=== PATIENT | male | born 1965 | race Two or more races ===

== ENCOUNTER 2021-11-26 08:33 | Emergency (ER) | payer MEDICAID ==
[~2021-11-26] VITALS: Ht 157.5 cm; Wt 106.6 kg
[2021-11-26] MEDS ORDERED: SODIUM CHLORIDE 0.9% 500 ML IVB ONE (09:00)
[2021-11-26] MEDS ORDERED: SODIUM CHLORIDE 0.9% 1,000 ML IV ONE (09:00)
[2021-11-26 09:17] LABS: Urine Bacteria NONE SEEN /hpf (None Seen); Urine Blood Negative /uL (Negative); Urine Specific Gravity 1.018 (1.001-1.035); Urine WBC 22 /hpf (0 - 3)
[2021-11-26 09:35] LABS: Basophils # (auto) 0.1 10 ^3/uL (0-0.2); Basophils % (auto) 0.8 % (0.0-2.0); Eosinophils # (auto) 0.2 10 ^3/uL (0-0.8); Eosinophils % (auto) 3.3 % (0.0-7.0); Hematocrit 42.6 % (41.0-53.0); Lymphocytes % (auto) 32.6 % (10.0-50.0); Mean Corpuscular Hemoglobin 29.3 pg (28.0-32.0); Mean Corpuscular Hgb Conc. 32.9 g/dL (32.0-36.0); Monocytes # (auto) 0.6 10 ^3/uL (0-1.3); Monocytes % (auto) 9.3 % (0.0-12.0); Neutrophils # (auto) 3.3 10 ^3/uL (1.6-8.6); Nucleated Red Blood Cells % 0.1 %; Red Blood Cells 4.79 10^6/uL (4.5-5.90); Red Cell Distribution Width 16.1 % (11.8-14.3); White Blood Cell 6.1 10^3/uL (4.4-10.8)
[2021-11-26 09:56] LABS: Albumin 3.7 g/dL (3.4-5.0); BUN/Creatinine Ratio 25.9; Bilirubin, Total 0.4 mg/dL (0.2-1.0); Calcium 9.2 mg/dL (8.5-10.1); Magnesium 2.5 mg/dL (1.6-2.6); Total Protein 7.5 g/dL (6.4-8.2)
[2021-11-26] MEDS ORDERED: levoFLOXacin 750MG 150 ML IV ONE (13:15)
[2021-11-26] MEDS ORDERED: NITROFURANTOIN 100 mg CAP PO ONE (13:15)
[2021-11-26 14:05] VITALS: BP 108/52
== END 2021-11-26 16:05 | disposition home or self-care (01) ==
LOC: ER 08:33
DX: N39.0 Urinary tract infection, site not specified (principal); E11.65 Type 2 diabetes mellitus with hyperglycemia; I10 Essential (primary) hypertension; E78.5 Hyperlipidemia, unspecified; Z95.1 Presence of aortocoronary bypass graft; Z88.0 Allergy status to penicillin; Z88.1 Allergy status to other antibiotic agents; Z88.2 Allergy status to sulfonamides
CPT/HCPCS: 36415; 80053; 81001; 83690; 83735; 85025; 96361; 96365; 99284; J1956; J7030; J7040

== ENCOUNTER 2023-02-03 08:59 | Emergency (ER) | payer MEDICAID ==
[~2023-02-03] VITALS: Ht 157.5 cm; Wt 105.0 kg
[2023-02-03 09:58] VITALS: BP 174/94
[2023-02-03] MEDS ORDERED: KETO2CRE4 TOP (10:29)
[2023-02-03] MEDS ORDERED: VIBE75TA PO (10:29)
[2023-02-03] MEDS ORDERED: CLIN300C8 PO (10:29)
== END 2023-02-03 10:42 | disposition home or self-care (01) ==
LOC: ER 08:59
DX: N48.1 Balanitis (principal); E11.9 Type 2 diabetes mellitus without complications; E78.5 Hyperlipidemia, unspecified; I10 Essential (primary) hypertension; Z87.440 Personal history of urinary (tract) infections; Z95.1 Presence of aortocoronary bypass graft; Z88.1 Allergy status to other antibiotic agents; Z88.2 Allergy status to sulfonamides; Z88.0 Allergy status to penicillin

== ENCOUNTER 2023-03-01 09:12 | Emergency (ER) | payer MEDICAID ==
[~2023-03-01] VITALS: Ht 160 cm; Wt 112.5 kg
[~2023-03-01 09:12] MED LIST: CLIN300C8 PO; KETO2CRE4 TOP; VIBE75TA PO
[2023-03-01 09:47] VITALS: BP 122/52
[2023-03-01 10:46] LABS: Urine Bacteria NONE SEEN /hpf (None Seen); Urine Blood Negative /uL (Negative); Urine Specific Gravity 1.014 (1.001-1.035); Urine WBC 4 /hpf (0 - 3)
[2023-03-01] MEDS ORDERED: CEPH-510 PO (10:58)
== END 2023-03-01 11:07 | disposition home or self-care (01) ==
LOC: ER 09:12
DX: N39.0 Urinary tract infection, site not specified (principal); E11.9 Type 2 diabetes mellitus without complications; E78.5 Hyperlipidemia, unspecified; I10 Essential (primary) hypertension; Z88.0 Allergy status to penicillin; Z88.1 Allergy status to other antibiotic agents; Z88.2 Allergy status to sulfonamides
CPT/HCPCS: 81001

== ENCOUNTER 2023-03-06 08:42 | Emergency (ER) | payer MEDICAID ==
[~2023-03-06] VITALS: Ht 157.5 cm; Wt 110.0 kg
[~2023-03-06 08:42] MED LIST changes: +CEPH-510 PO
[2023-03-06 09:42] LABS: Urine Bacteria NONE SEEN /hpf (None Seen); Urine Blood Negative /uL (Negative); Urine Specific Gravity 1.017 (1.001-1.035); Urine WBC 14 /hpf (0 - 3)
[2023-03-06] MEDS ORDERED: PHEN-1045 PO (11:24)
[2023-03-06] MEDS ORDERED: ACET1CAP14 PO (11:24)
[2023-03-06] MEDS ORDERED: BACDST PO (11:24)
[2023-03-06] MEDS ORDERED: ACETAMINOPHEN 500 MG TAB PO ONE (11:30)
[2023-03-06] MEDS ORDERED: cefTRIAXone SOD 1,000 MG VL IM ONE (11:30)
[2023-03-06 12:27] VITALS: BP 116/57
== END 2023-03-06 11:50 | disposition home or self-care (01) ==
LOC: ER 08:42
DX: N39.0 Urinary tract infection, site not specified (principal); E78.5 Hyperlipidemia, unspecified; I10 Essential (primary) hypertension; E11.9 Type 2 diabetes mellitus without complications; Z95.1 Presence of aortocoronary bypass graft; Z87.440 Personal history of urinary (tract) infections; Z88.1 Allergy status to other antibiotic agents; Z88.0 Allergy status to penicillin; Z88.2 Allergy status to sulfonamides
CPT/HCPCS: 81001; 96372; 99283; J0696

== ENCOUNTER 2023-03-10 08:20 | Emergency (ER) | payer MEDICAID ==
[~2023-03-10] VITALS: Ht 157.5 cm; Wt 104.5 kg
[~2023-03-10 08:20] MED LIST changes: +ACET1CAP14 PO; +BACDST PO; +PHEN-1045 PO
[2023-03-10 09:02] VITALS: BP 121/70
[2023-03-10 09:11] LABS: Urine Bacteria NONE SEEN /hpf (None Seen); Urine Blood Negative /uL (Negative); Urine Mucus FEW (None Seen); Urine Specific Gravity 1.016 (1.001-1.035); Urine WBC 51 /hpf (0 - 3); Urine WBC Clumps PRESENT /hpf (None Seen)
[2023-03-10] MEDS ORDERED: LIDOCAINE 1% HCL (LOCAL ANESTH.) INJ 20ML MDV ONE (09:26)
[2023-03-10] MEDS ORDERED: LIDOCAINE 1% HCL (LOCAL ANESTH.) INJ 20ML MDV IJ ONE (09:30)
[2023-03-10] MEDS ORDERED: cefTRIAXone SOD 1,000 MG VL IM ONE (09:30)
[2023-03-10] MEDS ORDERED: CEPH-510 PO (09:39)
[2023-03-10] MEDS ORDERED: PHEN200T16 PO (09:39)
== END 2023-03-10 10:00 | disposition home or self-care (01) ==
LOC: ER 08:20
DX: N39.0 Urinary tract infection, site not specified (principal); E11.9 Type 2 diabetes mellitus without complications; E78.5 Hyperlipidemia, unspecified; I10 Essential (primary) hypertension; Z87.442 Personal history of urinary calculi; Z95.1 Presence of aortocoronary bypass graft; Z88.1 Allergy status to other antibiotic agents; Z88.2 Allergy status to sulfonamides; Z88.0 Allergy status to penicillin
CPT/HCPCS: 81001; 96372; 99283; J0696; J2001

== ENCOUNTER 2023-05-04 09:16 | Emergency (ER) | payer MEDICAID ==
[~2023-05-04] VITALS: Ht 157.5 cm; Wt 104.5 kg
[~2023-05-04 09:16] MED LIST changes: +CLIN300C70 PO; -CLIN300C8 PO; +PHEN-922 PO
[2023-05-04 09:22] VITALS: BP 122/59; PULSE 80; RESP 18; O2SAT 94
[2023-05-04 10:10] LABS: Basophils # (auto) 0.1 10 ^3/uL (0-0.2); Basophils % (auto) 1.3 % (0.0-2.0); Eosinophils # (auto) 0.3 10 ^3/uL (0-0.8); Eosinophils % (auto) 4.7 % (0.0-7.0); Hematocrit 41.8 % (41.0-53.0); Hemoglobin 13.5 g/dL (13.5-17.5); Lymphocytes # (auto) 2.6 10 ^3/uL (0.4-5.4); Lymphocytes % (auto) 35.5 % (10.0-50.0); Mean Corpuscular Hemoglobin 30.1 pg (28.0-32.0); Mean Corpuscular Hgb Conc. 32.3 g/dL (32.0-36.0); Monocytes # (auto) 0.6 10 ^3/uL (0-1.3); Monocytes % (auto) 7.9 % (0.0-12.0); Neutrophils # (auto) 3.7 10 ^3/uL (1.6-8.6); Neutrophils % (auto) 50.6 % (37.0-80.0); Nucleated Red Blood Cells % 0.2 %; Red Cell Distribution Width 15.6 % (11.8-14.3); White Blood Cell 7.3 10^3/uL (4.4-10.8)
[2023-05-04 10:41] LABS: Albumin 3.4 g/dL (3.4-5.0); Potassium 4.1 mmol/L (3.5-5.1)
[2023-05-04 10:50] LABS: BUN/Creatinine Ratio 19.6 (10.0-20.0); Bilirubin, Total 0.2 mg/dL (0.2-1.0); Total Protein 7.3 g/dL (6.4-8.2)
[2023-05-04 10:57] LABS: Urine Bacteria NONE SEEN /hpf (None Seen); Urine Blood Negative /uL (Negative); Urine Specific Gravity 1.013 (1.001-1.035); Urine WBC 16 /hpf (0 - 3)
[2023-05-05] MEDS ORDERED: RANO10003 PO (10:38)
[2023-05-05] MEDS ORDERED: ASPI81CH49 PO (10:38)
[2023-05-05] MEDS ORDERED: METF-370 PO (10:38)
[2023-05-05] MEDS ORDERED: ATOR40TA52 PO (10:41)
[2023-05-05] MEDS ORDERED: EZET10TA22 PO (10:41)
[2023-05-05] MEDS ORDERED: DOCU-94 PO (10:41)
[2023-05-05] MEDS ORDERED: METO-158 PO (10:41)
[2023-05-05] MEDS ORDERED: ENAL1TAB46 PO (10:41)
[2023-05-05] MEDS ORDERED: TOLT2CAP PO (10:41)
== END 2023-05-04 16:04 | disposition left against medical advice (07) ==
LOC: ER 09:16
DX: R10.9 Unspecified abdominal pain (principal); Z53.21 Procedure and treatment not carried out due to patient leaving prior to being seen by health care provider
CPT/HCPCS: 36415; 74176; 80053; 81001; 85025

== ENCOUNTER 2023-05-05 05:38 | Inpatient (IN) | payer MEDICAID ==
[~2023-05-05] VITALS: Ht 157.5 cm; Wt 75.2 kg
[2023-05-05] MEDS ORDERED: SODIUM CHLORIDE 0.9% 1,000 ML IV ONE (07:00)
[2023-05-05] MEDS ORDERED: VANCOMYCIN 1GM/250ML 250 ML IV ONE (07:00)
[2023-05-05 07:48] LABS: Basophils # (auto) 0.1 10 ^3/uL (0-0.2); Eosinophils # (auto) 0.4 10 ^3/uL (0-0.8); Eosinophils % (auto) 5.2 % (0.0-7.0); Hematocrit 41.2 % (41.0-53.0); Hemoglobin 13.5 g/dL (13.5-17.5); Lymphocytes # (auto) 2.7 10 ^3/uL (0.4-5.4); Lymphocytes % (auto) 35.7 % (10.0-50.0); Mean Corpuscular Hemoglobin 29.7 pg (28.0-32.0); Mean Corpuscular Hgb Conc. 32.7 g/dL (32.0-36.0); Mean Corpuscular Volume 90.9 fL (80.0-100.0); Monocytes # (auto) 0.6 10 ^3/uL (0-1.3); Monocytes % (auto) 8.7 % (0.0-12.0); Neutrophils # (auto) 3.7 10 ^3/uL (1.6-8.6); Neutrophils % (auto) 49.4 % (37.0-80.0); Red Blood Cells 4.53 10^6/uL (4.5-5.90); Red Cell Distribution Width 15.4 % (11.8-14.3); White Blood Cell 7.5 10^3/uL (4.4-10.8)
[2023-05-05 08:01] LABS: Albumin 3.6 g/dL (3.4-5.0); Potassium 4.5 mmol/L (3.5-5.1)
[2023-05-05 08:06] LABS: Bilirubin, Total 0.3 mg/dL (0.2-1.0); Total Protein 6.8 g/dL (6.4-8.2)
[2023-05-05 09:22] LABS: Urine Bacteria NONE SEEN /hpf (None Seen); Urine Blood Negative /uL (Negative); Urine Specific Gravity 1.009 (1.001-1.035); Urine WBC 20 /hpf (0 - 3)
[2023-05-05] MEDS ORDERED: ASPI81CH49 PO (10:38)
[2023-05-05] MEDS ORDERED: RANO10003 PO (10:38)
[2023-05-05] MEDS ORDERED: METF-370 PO (10:38)
[2023-05-05] MEDS ORDERED: DOCU-94 PO (10:41)
[2023-05-05] MEDS ORDERED: ENAL1TAB46 PO (10:41)
[2023-05-05] MEDS ORDERED: EZET10TA22 PO (10:41)
[2023-05-05] MEDS ORDERED: METO-158 PO (10:41)
[2023-05-05] MEDS ORDERED: TOLT2CAP PO (10:41)
[2023-05-05] MEDS ORDERED: ATOR40TA52 PO (10:41)
[2023-05-05] MEDS ORDERED: MORPHINE SULFATE INJ 2 MG/ml SYRG IV PRN (11:00)
[2023-05-05] MEDS ORDERED: DEXTROSE (50%) 50ML SYRG IV PRN (11:00)
[2023-05-05] MEDS ORDERED: ONDANSETRON HCL 4 MG/2 ML VIAL IV PRN (11:00)
[2023-05-05 11:40] VITALS: PULSE 68; RESP 16; O2SAT 98
[2023-05-05] MEDS: ACCU-CHEK COMFORT CURVE STRIP VI SCH ×3 (13:01→21:50)
[2023-05-05] MEDS: InsuLIN REG 1unit/0.01ml Soln (100units/ml) SC SCH ×3 (13:01→21:50)
[2023-05-05] MEDS: RANOLAZINE ER 500 MG TAB PO SCH ×3 (13:51→22:11)
[2023-05-05] MEDS: SODIUM CHLORIDE 0.9% 1,000 ML IV SCH ×2 (14:05→20:36)
[2023-05-05] MEDS: OXYBUTYNIN CHL 5 MG TAB PO SCH ×2 (14:13→22:13)
[2023-05-05] MEDS: levoFLOXacin 500MG 100 ML IV SCH (14:14)
[2023-05-05 19:35] VITALS: PULSE 77; RESP 15; O2SAT 95
[2023-05-05] MEDS: ENALAPRIL MALEATE 10 MG TAB PO SCH (22:00)
[2023-05-05] MEDS: DOCUSATE SOD 100 MG CAP PO SCH (22:11)
[2023-05-05] MEDS: ATORVASTATIN 20 MG TAB PO SCH (22:12)
[2023-05-05] MEDS: METOPROLOL TARTRATE 50 MG TAB PO SCH (22:13)
[2023-05-06 06:20] LABS: Basophils # (auto) 0.1 10 ^3/uL (0-0.2); Basophils % (auto) 0.8 % (0.0-2.0); Eosinophils # (auto) 0.4 10 ^3/uL (0-0.8); Hematocrit 40.8 % (41.0-53.0); Hemoglobin 13.5 g/dL (13.5-17.5); Lymphocytes % (auto) 31.3 % (10.0-50.0); Mean Corpuscular Volume 90.8 fL (80.0-100.0); Monocytes # (auto) 0.9 10 ^3/uL (0-1.3); Monocytes % (auto) 9.4 % (0.0-12.0); Neutrophils # (auto) 5.3 10 ^3/uL (1.6-8.6); Neutrophils % (auto) 54.5 % (37.0-80.0); Nucleated Red Blood Cells % 0.1 %; Red Cell Distribution Width 15.4 % (11.8-14.3); White Blood Cell 9.7 10^3/uL (4.4-10.8)
[2023-05-06 06:30] LABS: Albumin 3.3 g/dL (3.4-5.0); Calcium 8.6 mg/dL (8.5-10.1)
[2023-05-06 06:36] LABS: BUN/Creatinine Ratio 19.6 (10.0-20.0); Bilirubin, Total 0.2 mg/dL (0.2-1.0); Potassium 3.9 mmol/L (3.5-5.1); Total Protein 6.8 g/dL (6.4-8.2)
[2023-05-06] MEDS: SODIUM CHLORIDE 0.9% 1,000 ML IV SCH ×3 (06:41→22:16)
[2023-05-06] MEDS: ACCU-CHEK COMFORT CURVE STRIP VI SCH ×4 (06:49→21:48)
[2023-05-06] MEDS: InsuLIN REG 1unit/0.01ml Soln (100units/ml) SC SCH ×4 (06:49→22:04)
[2023-05-06] MEDS: RANOLAZINE ER 500 MG TAB PO SCH ×3 (06:50→21:45)
[2023-05-06] MEDS: OXYBUTYNIN CHL 5 MG TAB PO SCH ×4 (06:50→22:02)
[2023-05-06 08:27] VITALS: PULSE 78; RESP 16; O2SAT 95
[2023-05-06] MEDS: levoFLOXacin 500MG 100 ML IV SCH (09:58)
[2023-05-06] MEDS ORDERED: EZETIMIBE 10 MG PO SCH (10:00)
[2023-05-06] MEDS: VIBEGRON 75 MG PO SCH (10:00)
[2023-05-06 10:22] VITALS: BP 125/73; PULSE 82; RESP 18; TEMP 97.7; O2SAT 95
[2023-05-06] MEDS: DOCUSATE SOD 100 MG CAP PO SCH ×2 (10:45→21:45)
[2023-05-06] MEDS: ASPirin 81 mg TAB PO SCH (10:45)
[2023-05-06] MEDS: ENALAPRIL MALEATE 10 MG TAB PO SCH ×2 (10:45→21:46)
[2023-05-06] MEDS: ENOXAPARIN SOD 40 MG/0.4 ML SYRINGE SC SCH (10:46)
[2023-05-06 11:10] VITALS: PULSE 84; RESP 18
[2023-05-06 20:00] VITALS: PULSE 93; RESP 20; O2SAT 93
[2023-05-06] MEDS: ATORVASTATIN 20 MG TAB PO SCH (21:46)
[2023-05-06] MEDS: METOPROLOL TARTRATE 50 MG TAB PO SCH (21:47)
[2023-05-06 22:00] VITALS: BP 115/59; PULSE 93; RESP 20; TEMP 98.5; O2SAT 98
[2023-05-07] VITALS (7 sets, daily range): BP systolic 112–142; BP diastolic 49–77; PULSE 84–118; RESP 17–22; TEMP 97.5–98.4; O2SAT 95–98
[2023-05-07] MEDS: OXYBUTYNIN CHL 5 MG TAB PO SCH ×2 (05:43→14:00)
[2023-05-07] MEDS: RANOLAZINE ER 500 MG TAB PO SCH ×2 (05:43→16:01)
[2023-05-07] MEDS: InsuLIN REG 1unit/0.01ml Soln (100units/ml) SC SCH ×3 (06:45→17:00)
[2023-05-07] MEDS: ACCU-CHEK COMFORT CURVE STRIP VI SCH ×3 (06:46→17:48)
[2023-05-07] MEDS: SODIUM CHLORIDE 0.9% 1,000 ML IV SCH ×2 (06:48→13:00)
[2023-05-07] MEDS: levoFLOXacin 500MG 100 ML IV SCH (09:16)
[2023-05-07] MEDS: ASPirin 81 mg TAB PO SCH (09:16)
[2023-05-07] MEDS: ENOXAPARIN SOD 40 MG/0.4 ML SYRINGE SC SCH (09:17)
[2023-05-07] MEDS: DOCUSATE SOD 100 MG CAP PO SCH (09:18)
[2023-05-07] MEDS: ENALAPRIL MALEATE 10 MG TAB PO SCH (09:18)
[2023-05-07] MEDS: VIBEGRON 75 MG PO SCH (10:00)
[2023-05-07 12:39] LABS: Hepatitis C Antibody Negative (Negative)
[2023-05-07] MEDS ORDERED: LEVO500T91 PO (17:45)
== END 2023-05-07 18:30 | disposition home or self-care (01) | DRG 463 ==
LOC: ER 05:38 → OVERFLOW 11:06 → CENTRAL 05-06 10:28
PROVIDERS: ADMIT Internal Medicine; ATTEND Internal Medicine
DX: N39.0 Urinary tract infection, site not specified (principal); G82.20 Paraplegia, unspecified; B96.5 Pseudomonas (aeruginosa) (mallei) (pseudomallei) as the cause of diseases classified elsewhere; E11.9 Type 2 diabetes mellitus without complications; E66.9 Obesity, unspecified; E78.5 Hyperlipidemia, unspecified; I10 Essential (primary) hypertension; Z99.3 Dependence on wheelchair; Z82.49 Family history of ischemic heart disease and other diseases of the circulatory system; Z83.3 Family history of diabetes mellitus; Z87.440 Personal history of urinary (tract) infections; Z88.0 Allergy status to penicillin; Z88.1 Allergy status to other antibiotic agents; Z95.1 Presence of aortocoronary bypass graft; Z88.2 Allergy status to sulfonamides; Z68.30 Body mass index [BMI] 30.0-30.9, adult
CPT/HCPCS: 36415; 80053; 81001; 82962; 84484; 85025; 86803; 87086; 87088; 87186; 87340; 93005; 96365; G0378; J1815; J1956

== ENCOUNTER 2023-07-04 08:27 | Inpatient (IN) | payer MEDICAID ==
[~2023-07-04] VITALS: Ht 157.5 cm; Wt 103.9 kg
[~2023-07-04 08:27] MED LIST changes: +ASPI81CH49 PO; +ATOR40TA52 PO; -CEPH-510 PO; -CLIN300C70 PO; +DOCU-94 PO; +ENAL1TAB46 PO; +EZET10TA22 PO; +LEVO500T91 PO; +METF-370 PO; +METO-158 PO; +RANO10003 PO; +TOLT2CAP PO
[2023-07-04 09:15] LABS: Urine Bacteria FEW /hpf (None Seen); Urine Blood 3+ /uL (Negative); Urine Clarity Clear (Clear); Urine Color Yellow (Yellow); Urine Mucus FEW (None Seen); Urine Protein, UAD TRACE (Negative); Urine Urobilinogen Normal (Negative); Urine WBC 6 /hpf (0 - 3); Urine pH 6.5 (5.0-8.0)
[2023-07-04 09:57] LABS: Basophils # (auto) 0.1 10 ^3/uL (0-0.2); Eosinophils # (auto) 0.4 10 ^3/uL (0-0.8); Eosinophils % (auto) 3.7 % (0.0-7.0); Hematocrit 43.7 % (41.0-53.0); Hemoglobin 14.5 g/dL (13.5-17.5); Lymphocytes # (auto) 3.3 10 ^3/uL (0.4-5.4); Lymphocytes % (auto) 33.6 % (10.0-50.0); Mean Corpuscular Hemoglobin 29.6 pg (28.0-32.0); Mean Corpuscular Hgb Conc. 33.2 g/dL (32.0-36.0); Mean Corpuscular Volume 89.2 fL (80.0-100.0); Monocytes # (auto) 0.9 10 ^3/uL (0-1.3); Monocytes % (auto) 9.5 % (0.0-12.0); Neutrophils # (auto) 5.1 10 ^3/uL (1.6-8.6); Neutrophils % (auto) 52.2 % (37.0-80.0); Nucleated Red Blood Cells % 0.2 %; Red Cell Distribution Width 15.4 % (11.8-14.3); White Blood Cell 9.8 10^3/uL (4.4-10.8)
[2023-07-04 10:18] LABS: Alanine Aminotransferase 31 U/L (7-40); Albumin 4.6 g/dL (3.2-4.8); Alkaline Phosphatase 112 U/L (46-116); Aspartate Aminotransferase 12 U/L (13-40); BUN/Creatinine Ratio 20.4 (10.0-20.0); Bilirubin, Total 0.5 mg/dL (0.2-1.0); Blood Urea Nitrogen 11 mg/dL (9-23); Calcium 9.8 mg/dL (8.5-10.1); Carbon Dioxide 20 mmol/L (20-30); Glucose 117 mg/dL (74-106); Total Protein 7.4 g/dL (5.7-8.2)
[2023-07-04 10:57] LABS: Anion Gap 9 (5-15); Chloride 101 mmol/L (98-107); Potassium 4.4 mmol/L (3.5-5.1); Sodium 130 mmol/L (136-145)
[2023-07-04 11:03] LABS: Lipase 98 U/L (12-53)
[2023-07-04] MEDS ORDERED: NITROGLYCERIN 0.4 MG SL TAB SL PRN (12:45)
[2023-07-04] MEDS ORDERED: ENALAPRIL MALEATE 10 MG TAB PO ONE (12:45)
[2023-07-04] MEDS ORDERED: ASPirin 81 mg TAB PO ONE (12:45)
[2023-07-04] MEDS ORDERED: MORPHINE SULFATE INJ 2 MG/ml SYRG IV PRN (12:45)
[2023-07-04] MEDS ORDERED: DOCUSATE SOD 100 MG CAP PO PRN ×2 (12:45→18:45)
[2023-07-04] MEDS ORDERED: METOPROLOL SUCCINATE XL 50 MG TAB PO ONE (12:45)
[2023-07-04] MEDS ORDERED: cefTRIAXone 1GM/50ML D5W 50 ML IV ONE (12:45)
[2023-07-04 13:38] VITALS: O2SAT 98
[2023-07-04] MEDS: RANOLAZINE ER 500 MG TAB PO SCH ×2 (13:53→22:00)
[2023-07-04] MEDS: MEROPENEM 1GM IVPB 100 ML IV SCH ×2 (14:00→22:35)
[2023-07-04 22:15] VITALS: BP 129/72; PULSE 99; RESP 20; TEMP 97.7; O2SAT 98
[2023-07-04] MEDS: ATORVASTATIN 20 MG TAB PO SCH (22:36)
[2023-07-05] VITALS (7 sets, daily range): BP systolic 95–153; BP diastolic 59–75; PULSE 71–91; RESP 16–19; TEMP 97.4–98.1; O2SAT 97–99
[2023-07-05] MEDS: MEROPENEM 1GM IVPB 100 ML IV SCH ×3 (05:36→22:19)
[2023-07-05] MEDS: RANOLAZINE ER 500 MG TAB PO SCH ×3 (05:41→22:17)
[2023-07-05 06:41] LABS: Anion Gap 8 (5-15); Carbon Dioxide 22 mmol/L (20-30); Chloride 101 mmol/L (98-107); Potassium 4.1 mmol/L (3.5-5.1); Sodium 131 mmol/L (136-145)
[2023-07-05 06:42] LABS: Calcium 9.3 mg/dL (8.7-10.4)
[2023-07-05 06:44] LABS: INR 1.04 (0.9-1.15); Partial Thromboplastin Time 33.6 SEC (24.5-34.5); Prothrombin Time 10.9 sec (9.3-11.8)
[2023-07-05 06:47] LABS: BUN/Creatinine Ratio 20.4 (10.0-20.0); Blood Urea Nitrogen 10 mg/dL (9-23); Glucose 117 mg/dL (74-106)
[2023-07-05 06:59] LABS: LDL Cholesterol 46 mg/dL (< 100); Triglycerides 122 mg/dL (< 150)
[2023-07-05 07:01] LABS: Cholesterol 89 mg/dL (< 200); HDL Cholesterol 26 mg/dL (40-59)
[2023-07-05] MEDS ORDERED: cefTRIAXone 1GM/50ML D5W 50 ML IV SCH (09:00)
[2023-07-05] MEDS: EZETIMIBE 10 MG TABLETS PO SCH (10:00)
[2023-07-05] MEDS: ENALAPRIL MALEATE 10 MG TAB PO SCH (10:58)
[2023-07-05] MEDS: METOPROLOL SUCCINATE XL 50 MG TAB PO SCH (10:59)
[2023-07-05] MEDS: ASPirin 81 mg TAB PO SCH (11:01)
[2023-07-05 11:29] LABS: Basophils # (auto) 0.1 10 ^3/uL (0-0.2); Basophils % (auto) 1.2 % (0.0-2.0); Eosinophils # (auto) 0.3 10 ^3/uL (0-0.8); Eosinophils % (auto) 3.5 % (0.0-7.0); Hematocrit 41.4 % (41.0-53.0); Hemoglobin 13.5 g/dL (13.5-17.5); Lymphocytes # (auto) 3.2 10 ^3/uL (0.4-5.4); Lymphocytes % (auto) 35.7 % (10.0-50.0); Mean Corpuscular Hemoglobin 29.4 pg (28.0-32.0); Mean Corpuscular Hgb Conc. 32.5 g/dL (32.0-36.0); Mean Corpuscular Volume 90.4 fL (80.0-100.0); Monocytes # (auto) 0.8 10 ^3/uL (0-1.3); Monocytes % (auto) 8.8 % (0.0-12.0); Neutrophils # (auto) 4.6 10 ^3/uL (1.6-8.6); Neutrophils % (auto) 50.8 % (37.0-80.0); Nucleated Red Blood Cells % 0.1 %; Red Blood Cells 4.58 10^6/uL (4.5-5.90); Red Cell Distribution Width 15.6 % (11.8-14.3)
[2023-07-05] MEDS: ATORVASTATIN 20 MG TAB PO SCH (22:17)
[2023-07-06 05:00] VITALS: BP 120/68; PULSE 80; RESP 18; TEMP 97.3; O2SAT 95
[2023-07-06] MEDS: RANOLAZINE ER 500 MG TAB PO SCH ×3 (05:31→22:10)
[2023-07-06] MEDS: MEROPENEM 1GM IVPB 100 ML IV SCH ×3 (05:32→22:09)
[2023-07-06 06:42] LABS: Chloride 102 mmol/L (98-107); Potassium 4.2 mmol/L (3.5-5.1); Sodium 132 mmol/L (136-145)
[2023-07-06 06:43] LABS: Anion Gap 8 (5-15); Carbon Dioxide 22 mmol/L (20-30)
[2023-07-06 06:48] LABS: Blood Urea Nitrogen 12 mg/dL (9-23); Glucose 153 mg/dL (74-106)
[2023-07-06 07:37] LABS: Basophils # (auto) 0.1 10 ^3/uL (0-0.2); Eosinophils # (auto) 0.4 10 ^3/uL (0-0.8); Eosinophils % (auto) 5.1 % (0.0-7.0); Hematocrit 39.2 % (41.0-53.0); Hemoglobin 13.1 g/dL (13.5-17.5); Lymphocytes # (auto) 3.6 10 ^3/uL (0.4-5.4); Mean Corpuscular Hgb Conc. 33.5 g/dL (32.0-36.0); Mean Corpuscular Volume 89.6 fL (80.0-100.0); Monocytes # (auto) 0.7 10 ^3/uL (0-1.3); Monocytes % (auto) 8.9 % (0.0-12.0); Neutrophils # (auto) 3.3 10 ^3/uL (1.6-8.6); Nucleated Red Blood Cells % 0.1 %; Red Blood Cells 4.37 10^6/uL (4.5-5.90); Red Cell Distribution Width 15.1 % (11.8-14.3); White Blood Cell 8.2 10^3/uL (4.4-10.8)
[2023-07-06 08:00] VITALS: BP 100/59; PULSE 81; RESP 18; TEMP 97.5; O2SAT 97
[2023-07-06 09:00] VITALS: BP 133/85; PULSE 82; RESP 16; TEMP 98.8; O2SAT 97
[2023-07-06] MEDS: EZETIMIBE 10 MG TABLETS PO SCH (10:00)
[2023-07-06] MEDS: ENALAPRIL MALEATE 10 MG TAB PO SCH (11:12)
[2023-07-06] MEDS: METOPROLOL SUCCINATE XL 50 MG TAB PO SCH (11:12)
[2023-07-06] MEDS: ASPirin 81 mg TAB PO SCH (11:13)
[2023-07-06] MEDS ORDERED: ENOXAPARIN SOD 40 MG/0.4 ML SYRINGE SC ONE (11:15)
[2023-07-06 13:00] VITALS: BP 148/81; PULSE 79; RESP 16; TEMP 98.7; O2SAT 97
[2023-07-06 16:46] VITALS: BP 116/59; PULSE 79; RESP 16; TEMP 97.2; O2SAT 99
[2023-07-06 22:00] VITALS: BP 133/66; PULSE 84; RESP 19; TEMP 99; O2SAT 98
[2023-07-06] MEDS: ATORVASTATIN 20 MG TAB PO SCH (22:10)
[2023-07-06] MEDS ORDERED: METF-370 PO (22:13)
[2023-07-07 05:00] VITALS: BP 105/0; PULSE 74; RESP 19; TEMP 98; O2SAT 97
[2023-07-07] MEDS: MEROPENEM 1GM IVPB 100 ML IV SCH ×3 (05:23→21:05)
[2023-07-07] MEDS: RANOLAZINE ER 500 MG TAB PO SCH ×3 (05:23→21:07)
[2023-07-07 07:24] LABS: Basophils # (auto) 0.1 10 ^3/uL (0-0.2); Basophils % (auto) 0.9 % (0.0-2.0); Eosinophils # (auto) 0.3 10 ^3/uL (0-0.8); Eosinophils % (auto) 4.4 % (0.0-7.0); Hematocrit 38.6 % (41.0-53.0); Hemoglobin 12.9 g/dL (13.5-17.5); Lymphocytes # (auto) 3.3 10 ^3/uL (0.4-5.4); Lymphocytes % (auto) 40.9 % (10.0-50.0); Mean Corpuscular Hgb Conc. 33.4 g/dL (32.0-36.0); Mean Corpuscular Volume 89.7 fL (80.0-100.0); Monocytes # (auto) 0.7 10 ^3/uL (0-1.3); Neutrophils # (auto) 3.6 10 ^3/uL (1.6-8.6); Neutrophils % (auto) 44.8 % (37.0-80.0); Red Blood Cells 4.31 10^6/uL (4.5-5.90); Red Cell Distribution Width 15.4 % (11.8-14.3)
[2023-07-07 07:57] LABS: Calcium 9.3 mg/dL (8.5-10.1); Carbon Dioxide 26 mmol/L (20-30)
[2023-07-07 08:01] LABS: BUN/Creatinine Ratio 20.8 (10.0-20.0); Blood Urea Nitrogen 10 mg/dL (9-23); Glucose 120 mg/dL (74-106)
[2023-07-07 08:46] LABS: Anion Gap 6 (5-15); Chloride 102 mmol/L (98-107); Potassium 4.3 mmol/L (3.5-5.1); Sodium 134 mmol/L (136-145)
[2023-07-07 08:53] LABS: Magnesium 1.9 mg/dL (1.6-2.6)
[2023-07-07 09:00] VITALS: BP 138/62; PULSE 99; RESP 16; TEMP 97.3; O2SAT 98
[2023-07-07] MEDS: EZETIMIBE 10 MG TABLETS PO SCH (10:00)
[2023-07-07] MEDS: ENOXAPARIN SOD 40 MG/0.4 ML SYRINGE SC SCH (10:25)
[2023-07-07] MEDS: ENALAPRIL MALEATE 10 MG TAB PO SCH (10:25)
[2023-07-07] MEDS: ASPirin 81 mg TAB PO SCH (10:25)
[2023-07-07] MEDS: METOPROLOL SUCCINATE XL 50 MG TAB PO SCH (10:26)
[2023-07-07 13:00] VITALS: BP 159/86; PULSE 88; RESP 16; TEMP 98.1; O2SAT 96
[2023-07-07 17:00] VITALS: BP 120/73; PULSE 82; RESP 16; TEMP 98.3; O2SAT 97
[2023-07-07] MEDS: ATORVASTATIN 20 MG TAB PO SCH (21:07)
[2023-07-07 22:00] VITALS: BP 144/50; PULSE 66; RESP 22; TEMP 97.6; O2SAT 97
[2023-07-08 05:00] VITALS: BP 120/53; PULSE 79; RESP 20; TEMP 97.7; O2SAT 97
[2023-07-08] MEDS: RANOLAZINE ER 500 MG TAB PO SCH ×3 (05:23→21:33)
[2023-07-08] MEDS: MEROPENEM 1GM IVPB 100 ML IV SCH ×3 (05:24→21:32)
[2023-07-08 08:56] VITALS: BP 148/78; PULSE 87; RESP 19; TEMP 97.7; O2SAT 98
[2023-07-08] MEDS: ENOXAPARIN SOD 40 MG/0.4 ML SYRINGE SC SCH (09:48)
[2023-07-08] MEDS: METOPROLOL SUCCINATE XL 50 MG TAB PO SCH (09:49)
[2023-07-08] MEDS: ENALAPRIL MALEATE 10 MG TAB PO SCH (09:49)
[2023-07-08] MEDS: ASPirin 81 mg TAB PO SCH (09:49)
[2023-07-08] MEDS: EZETIMIBE 10 MG TABLETS PO SCH (09:50)
[2023-07-08 13:05] VITALS: BP 130/61; PULSE 87; RESP 19; TEMP 98.4; O2SAT 98
[2023-07-08 16:27] VITALS: BP 141/70; PULSE 85; RESP 19; TEMP 98.4; O2SAT 97
[2023-07-08] MEDS: ATORVASTATIN 20 MG TAB PO SCH (21:33)
[2023-07-08 22:00] VITALS: BP 114/52; PULSE 76; RESP 19; TEMP 98.1; O2SAT 100
[2023-07-09 05:00] VITALS: BP 128/61; PULSE 82; RESP 18; TEMP 98; O2SAT 98
[2023-07-09] MEDS: MEROPENEM 1GM IVPB 100 ML IV SCH ×3 (06:00→22:30)
[2023-07-09] MEDS: RANOLAZINE ER 500 MG TAB PO SCH ×3 (06:50→22:29)
[2023-07-09 09:05] VITALS: BP 144/75; PULSE 77; RESP 18; TEMP 98; O2SAT 97
[2023-07-09] MEDS: ENALAPRIL MALEATE 10 MG TAB PO SCH (09:14)
[2023-07-09] MEDS: METOPROLOL SUCCINATE XL 50 MG TAB PO SCH (09:15)
[2023-07-09] MEDS: ENOXAPARIN SOD 40 MG/0.4 ML SYRINGE SC SCH (09:15)
[2023-07-09] MEDS: ASPirin 81 mg TAB PO SCH (09:15)
[2023-07-09] MEDS: EZETIMIBE 10 MG TABLETS PO SCH (09:16)
[2023-07-09 13:00] VITALS: BP 140/60; PULSE 81; RESP 19; TEMP 98; O2SAT 97
[2023-07-09 17:00] VITALS: BP 142/63; PULSE 67; RESP 20; TEMP 97.5; O2SAT 92
[2023-07-09 20:00] VITALS: PULSE 72; RESP 18; O2SAT 96
[2023-07-09 22:00] VITALS: BP 139/72; PULSE 72; RESP 18; TEMP 98.7; O2SAT 96
[2023-07-09] MEDS: ATORVASTATIN 20 MG TAB PO SCH (22:30)
[2023-07-10 05:00] VITALS: BP 148/75; PULSE 73; RESP 17; TEMP 98.3; O2SAT 96
[2023-07-10] MEDS: MEROPENEM 1GM IVPB 100 ML IV SCH ×2 (05:28→15:11)
[2023-07-10] MEDS: RANOLAZINE ER 500 MG TAB PO SCH ×2 (05:28→15:12)
[2023-07-10 08:00] VITALS: PULSE 72; RESP 20; O2SAT 97
[2023-07-10 09:00] VITALS: BP 139/64; PULSE 87; RESP 20; TEMP 98.1; O2SAT 97
[2023-07-10] MEDS: EZETIMIBE 10 MG TABLETS PO SCH (10:00)
[2023-07-10] MEDS ORDERED: ENALAPRIL MALEATE 10 MG TAB PO SCH (10:00)
[2023-07-10] MEDS: ASPirin 81 mg TAB PO SCH (10:12)
[2023-07-10] MEDS: METOPROLOL SUCCINATE XL 50 MG TAB PO SCH (10:13)
[2023-07-10] MEDS: ENOXAPARIN SOD 40 MG/0.4 ML SYRINGE SC SCH (10:15)
[2023-07-10] MEDS ORDERED: ENAL1TAB48 PO (11:08)
[2023-07-10 13:00] VITALS: BP 137/60; PULSE 84; RESP 18; TEMP 98.8; O2SAT 97
[2023-07-10 16:36] VITALS: BP 139/69; PULSE 87; RESP 20; TEMP 98.6; O2SAT 96
== END 2023-07-10 17:29 | disposition home or self-care (01) | DRG 463 ==
LOC: ER 08:27 → OVERFLOW 12:37 → WEST WING 21:49
PROVIDERS: ADMIT Internal Medicine Geriatric Medicine; ATTEND Student in an Organized Health Care Education/Training Program
DX: N12 Tubulo-interstitial nephritis, not specified as acute or chronic (principal); G82.20 Paraplegia, unspecified; B96.5 Pseudomonas (aeruginosa) (mallei) (pseudomallei) as the cause of diseases classified elsewhere; E11.9 Type 2 diabetes mellitus without complications; B96.20 Unspecified Escherichia coli [E. coli] as the cause of diseases classified elsewhere; E66.01 Morbid (severe) obesity due to excess calories; I10 Essential (primary) hypertension; I25.10 Atherosclerotic heart disease of native coronary artery without angina pectoris; Z16.12 Extended spectrum beta lactamase (ESBL) resistance; Z88.1 Allergy status to other antibiotic agents; Z95.1 Presence of aortocoronary bypass graft; Z88.0 Allergy status to penicillin; Z88.8 Allergy status to other drugs, medicaments and biological substances; Z68.41 Body mass index [BMI] 40.0-44.9, adult; Z79.82 Long term (current) use of aspirin; Z79.899 Other long term (current) drug therapy; Z82.49 Family history of ischemic heart disease and other diseases of the circulatory system; Z83.3 Family history of diabetes mellitus; Z87.891 Personal history of nicotine dependence; Z90.81 Acquired absence of spleen; Z87.440 Personal history of urinary (tract) infections
CPT/HCPCS: 36415; 74176; 80048; 80053; 80061; 81001; 83036; 83690; 83735; 84443; 85025; 85048; 85610; 85730; 87081; 87086; 87088; 87186; 93005; G0378; J2185

== ENCOUNTER 2023-08-09 15:42 | Emergency (ER) | payer MEDICAID ==
[~2023-08-09 15:42] MED LIST changes: -BACDST PO; -ENAL1TAB46 PO; +ENAL1TAB48 PO; -KETO2CRE4 TOP; -LEVO500T91 PO; -PHEN-1045 PO; -PHEN-922 PO; -TOLT2CAP PO; -VIBE75TA PO
[2023-08-09 17:10] VITALS: BP 132/65; PULSE 75; RESP 16; TEMP 97.8; O2SAT 99
[2023-08-09] MEDS ORDERED: cefTRIAXone SOD 1,000 MG VL IM ONE (17:30)
[2023-08-09] MEDS ORDERED: SENN1CAP4 PO (17:48)
[2023-08-09] MEDS ORDERED: LEVO500T91 PO (17:48)
[2023-08-09] MEDS ORDERED: PHEN-922 PO (17:48)
[2023-08-09 18:02] LABS: Urine Bacteria FEW /hpf (None Seen); Urine Blood 2+ /uL (Negative); Urine Clarity Clear (Clear); Urine Color Yellow (Yellow); Urine Protein, UAD Negative (Negative); Urine Specific Gravity 1.005 (1.001-1.035); Urine Urobilinogen Normal (Negative); Urine WBC 26 /hpf (0 - 3)
== END 2023-08-09 18:28 | disposition home or self-care (01) ==
LOC: ER 15:42
DX: N39.0 Urinary tract infection, site not specified (principal); K59.00 Constipation, unspecified; E11.9 Type 2 diabetes mellitus without complications; E78.5 Hyperlipidemia, unspecified; I10 Essential (primary) hypertension; Z76.0 Encounter for issue of repeat prescription; Z88.1 Allergy status to other antibiotic agents; Z88.0 Allergy status to penicillin; Z88.6 Allergy status to analgesic agent
CPT/HCPCS: 81001; 87086; 87088; 87186; 96372; 99283; J0696

== ENCOUNTER 2023-08-12 09:20 | Emergency (ER) | payer MEDICAID ==
[~2023-08-12] VITALS: Ht 157.5 cm; Wt 108.8 kg
[~2023-08-12 09:20] MED LIST changes: +LEVO500T91 PO; +PHEN-922 PO; +SENN1CAP4 PO
[2023-08-12 10:07] LABS: Urine Bacteria FEW /hpf (None Seen); Urine Blood Negative /uL (Negative); Urine Clarity Clear (Clear); Urine Color Yellow (Yellow); Urine Protein, UAD Negative (Negative); Urine Urobilinogen Normal (Negative); Urine WBC 1 /hpf (0 - 3); Urine pH 6.5 (5.0-8.0)
[2023-08-12 11:18] VITALS: BP 136/75; PULSE 95; RESP 18; TEMP 98.4; O2SAT 97
== END 2023-08-12 12:12 | disposition home or self-care (01) ==
LOC: ER 09:20
DX: N39.0 Urinary tract infection, site not specified (principal); F41.9 Anxiety disorder, unspecified; E11.9 Type 2 diabetes mellitus without complications; E78.5 Hyperlipidemia, unspecified; Z87.442 Personal history of urinary calculi
CPT/HCPCS: 81001; 93005

== ENCOUNTER 2023-08-15 09:49 | Emergency (ER) | payer MEDICAID ==
[~2023-08-15] VITALS: Ht 157.5 cm; Wt 109.0 kg
[2023-08-15 10:47] VITALS: PULSE 106; RESP 15; TEMP 98.1; O2SAT 97
[2023-08-15 10:56] LABS: Urine Bacteria NONE SEEN /hpf (None Seen); Urine Blood 2+ /uL (Negative); Urine Clarity Clear (Clear); Urine Color Yellow (Yellow); Urine Protein, UAD 1+ (Negative); Urine Specific Gravity 1.008 (1.001-1.035); Urine Urobilinogen Normal (Negative); Urine WBC 9 /hpf (0 - 3); Urine pH 6.5 (5.0-8.0)
[2023-08-15] MEDS ORDERED: KETOROLAC TROMETH 30 MG/ML 1ML VIAL IM ONE (11:00)
[2023-08-15 11:18] VITALS: BP 139/69; PULSE 71; RESP 16; O2SAT 98
[2023-08-15] MEDS ORDERED: BACDST PO (11:25)
[2023-08-15] MEDS ORDERED: PHEN-1044 PO (11:25)
== END 2023-08-15 12:10 | disposition home or self-care (01) ==
LOC: ER 09:49
DX: N39.0 Urinary tract infection, site not specified (principal); I10 Essential (primary) hypertension; E11.9 Type 2 diabetes mellitus without complications; E78.5 Hyperlipidemia, unspecified; Z98.890 Other specified postprocedural states; Z88.0 Allergy status to penicillin; Z88.8 Allergy status to other drugs, medicaments and biological substances; Z79.84 Long term (current) use of oral hypoglycemic drugs; Z79.82 Long term (current) use of aspirin; Z79.899 Other long term (current) drug therapy
CPT/HCPCS: 81001; 96372; 99283; J1885

== ENCOUNTER 2023-08-19 08:17 | Emergency (ER) | payer MEDICAID ==
[~2023-08-19] VITALS: Ht 157.5 cm; Wt 109.0 kg
[~2023-08-19 08:17] MED LIST changes: +BACDST PO; +PHEN-1044 PO
[2023-08-19 09:38] LABS: Basophils # (auto) 0.1 10 ^3/uL (0-0.2); Eosinophils # (auto) 0.2 10 ^3/uL (0-0.8); Hematocrit 40.3 % (41.0-53.0); Hemoglobin 13.5 g/dL (13.5-17.5); Lymphocytes # (auto) 2.6 10 ^3/uL (0.4-5.4); Mean Corpuscular Hemoglobin 29.6 pg (28.0-32.0); Mean Corpuscular Hgb Conc. 33.5 g/dL (32.0-36.0); Mean Corpuscular Volume 88.5 fL (80.0-100.0); Monocytes # (auto) 0.6 10 ^3/uL (0-1.3); Monocytes % (auto) 4.6 % (0.0-12.0); Neutrophils # (auto) 8.7 10 ^3/uL (1.6-8.6); Neutrophils % (auto) 71.4 % (37.0-80.0); Red Blood Cells 4.55 10^6/uL (4.5-5.90); Red Cell Distribution Width 14.8 % (11.8-14.3); White Blood Cell 12.2 10^3/uL (4.4-10.8)
[2023-08-19 09:55] LABS: Alanine Aminotransferase 40 U/L (7-40); Albumin 4.4 g/dL (3.2-4.8); Alkaline Phosphatase 126 U/L (46-116); Anion Gap 9 (5-15); Aspartate Aminotransferase 15 U/L (13-40); BUN/Creatinine Ratio 19.3 (10.0-20.0); Bilirubin, Total 0.4 mg/dL (0.2-1.0); Blood Urea Nitrogen 11 mg/dL (9-23); Calcium 9.5 mg/dL (8.5-10.1); Carbon Dioxide 23 mmol/L (20-30); Chloride 101 mmol/L (98-107); Glucose 205 mg/dL (74-106); Potassium 4.5 mmol/L (3.5-5.1); Sodium 133 mmol/L (136-145); Total Protein 6.6 g/dL (5.7-8.2)
[2023-08-19 09:58] LABS: Urine Bacteria FEW /hpf (None Seen); Urine Blood TRACE /uL (Negative); Urine Clarity Clear (Clear); Urine Color Yellow (Yellow); Urine Protein, UAD Negative (Negative); Urine Specific Gravity 1.011 (1.001-1.035); Urine Urobilinogen Normal (Negative); Urine WBC 4 /hpf (0 - 3); Urine pH 6.5 (5.0-8.0)
[2023-08-19] MEDS ORDERED: levoFLOXacin 500 MG TAB PO ONE (11:00)
[2023-08-19] MEDS ORDERED: HYDROcodone-ACET 10/325MG TAB PO ONE (11:00)
[2023-08-19 11:42] VITALS: BP 140/70; PULSE 79; RESP 19; O2SAT 96
[2023-08-19] MEDS ORDERED: LEVO500T91 PO (12:16)
== END 2023-08-19 12:28 | disposition home or self-care (01) ==
LOC: ER 08:17
DX: N39.0 Urinary tract infection, site not specified (principal); E11.65 Type 2 diabetes mellitus with hyperglycemia; I10 Essential (primary) hypertension; E78.5 Hyperlipidemia, unspecified; Z87.440 Personal history of urinary (tract) infections; Z88.0 Allergy status to penicillin; Z88.1 Allergy status to other antibiotic agents; Z88.6 Allergy status to analgesic agent
CPT/HCPCS: 36415; 71045; 74176; 80053; 81001; 84484; 85025

== ENCOUNTER 2023-11-04 09:12 | Emergency (ER) | payer MEDICAID ==
[~2023-11-04] VITALS: Ht 157.5 cm; Wt 109.0 kg
[2023-11-04 09:51] LABS: Urine Epithelial Cast None Seen /hpf (<5)
[2023-11-04 10:51] LABS: Urine Bacteria FEW /hpf (None Seen); Urine Blood 1+ /uL (Negative); Urine Clarity Clear (Clear); Urine Color Yellow (Yellow); Urine Protein, UAD Negative (Negative); Urine Specific Gravity 1.008 (1.001-1.035); Urine Urobilinogen Normal (Negative); Urine WBC 6 /hpf (0 - 3)
[2023-11-04] MEDS ORDERED: LEVO500T91 PO (10:55)
[2023-11-04] MEDS ORDERED: levoFLOXacin 500 MG TAB PO ONE (11:00)
[2023-11-04 11:23] VITALS: BP 144/78; TEMP 98.1
[2023-11-04 11:24] VITALS: PULSE 73; RESP 16; O2SAT 99
[2023-11-05] MEDS ORDERED: BACDST PO (21:17)
== END 2023-11-04 11:26 | disposition home or self-care (01) ==
LOC: ER 09:12
DX: N39.0 Urinary tract infection, site not specified (principal); E11.9 Type 2 diabetes mellitus without complications; E78.5 Hyperlipidemia, unspecified; I25.2 Old myocardial infarction; Z88.0 Allergy status to penicillin; Z88.1 Allergy status to other antibiotic agents; Z88.6 Allergy status to analgesic agent
CPT/HCPCS: 81001; 82962

== ENCOUNTER 2023-11-05 19:51 | Emergency (ER) | payer MEDICAID ==
[~2023-11-05] VITALS: Ht 157.5 cm; Wt 109.2 kg
[2023-11-05] MEDS ORDERED: cefTRIAXone W LIDOCAINE 1 GM IM IM ONE (20:45)
[2023-11-05] MEDS ORDERED: BACDST PO (21:17)
[2023-11-06] MEDS ORDERED: cefTRIAXone SOD 1,000 MG VL ONE (00:54)
[2023-11-06 01:04] VITALS: BP 155/57; PULSE 66; RESP 16; TEMP 98.9; O2SAT 99
== END 2023-11-06 01:04 | disposition home or self-care (01) ==
LOC: ER 19:51
DX: N39.0 Urinary tract infection, site not specified (principal); G82.20 Paraplegia, unspecified; I10 Essential (primary) hypertension; I25.2 Old myocardial infarction; E78.5 Hyperlipidemia, unspecified; E11.9 Type 2 diabetes mellitus without complications; Z93.51 Cutaneous-vesicostomy status; Z98.890 Other specified postprocedural states; Z88.8 Allergy status to other drugs, medicaments and biological substances; Z79.899 Other long term (current) drug therapy
CPT/HCPCS: 93005; 96372; 99283; J0696

== ENCOUNTER 2023-11-10 11:51 | Inpatient (IN) | payer MEDICAID ==
[~2023-11-10] VITALS: Ht 157.5 cm; Wt 111.0 kg
[2023-11-10] MEDS ORDERED: HYDROcodone-ACET 10/325MG TAB PO ONE (14:15)
[2023-11-10 14:44] LABS: Basophils # (auto) 0.1 10 ^3/uL (0-0.2); Basophils % (auto) 1.1 % (0.0-2.0); Eosinophils # (auto) 0.3 10 ^3/uL (0-0.8); Hematocrit 41.7 % (41.0-53.0); Hemoglobin 13.8 g/dL (13.5-17.5); Mean Corpuscular Hemoglobin 29.6 pg (28.0-32.0); Mean Corpuscular Volume 89.6 fL (80.0-100.0); Monocytes # (auto) 1.2 10 ^3/uL (0-1.3); Monocytes % (auto) 11.4 % (0.0-12.0); Neutrophils # (auto) 5.8 10 ^3/uL (1.6-8.6); Neutrophils % (auto) 55.5 % (37.0-80.0); Red Blood Cells 4.65 10^6/uL (4.5-5.90); Red Cell Distribution Width 16.2 % (11.8-14.3); White Blood Cell 10.4 10^3/uL (4.4-10.8)
[2023-11-10 14:48] LABS: Urine Bacteria FEW /hpf (None Seen); Urine Blood 3+ /uL (Negative); Urine Clarity Clear (Clear); Urine Color Yellow (Yellow); Urine Protein, UAD 3+ (Negative); Urine Specific Gravity 1.009 (1.001-1.035); Urine Urobilinogen Normal (Negative); Urine WBC 12 /hpf (0 - 3); Urine pH 6.5 (5.0-8.0)
[2023-11-10 15:13] LABS: Alanine Aminotransferase 30 U/L (7-40); Albumin 4.5 g/dL (3.2-4.8); Alkaline Phosphatase 107 U/L (46-116); Anion Gap 9 (5-15); Aspartate Aminotransferase 19 U/L (13-40); BUN/Creatinine Ratio 29.1 (10.0-20.0); Blood Urea Nitrogen 16 mg/dL (9-23); Calcium 9.1 mg/dL (8.7-10.4); Carbon Dioxide 19 mmol/L (20-30); Chloride 102 mmol/L (98-107); Glucose 91 mg/dL (74-106); Lipase 51 U/L (12-53); Potassium 4.6 mmol/L (3.5-5.1); Sodium 130 mmol/L (136-145)
[2023-11-10 15:14] LABS: Bilirubin, Total 0.3 mg/dL (0.2-1.0); Total Protein 6.8 g/dL (5.7-8.2)
[2023-11-10] MEDS ORDERED: CEFTRIAXONE SODIUM 2 GM in D5W 5% 100 ML IV ONE (15:45)
[2023-11-10] MEDS ORDERED: ACETAMINOPHEN 325 MG TAB PO PRN (17:15)
[2023-11-10] MEDS ORDERED: HYDROcodone-ACET 5/325MG TAB PO PRN (17:15)
[2023-11-10] MEDS ORDERED: ONDANSETRON HCL 4 MG/2 ML VIAL IV PRN (17:15)
[2023-11-10 20:30] VITALS: PULSE 87; O2SAT 96
[2023-11-10] MEDS: SODIUM CHLOR 0.9% PF (SALINE LOCK) 10ML VIAL/SYR IV SCH (22:07)
[2023-11-11] VITALS (7 sets, daily range): BP systolic 93–131; BP diastolic 50–68; PULSE 68–93; RESP 16–95; TEMP 97.7–98.6; O2SAT 95–99
[2023-11-11] MEDS: SODIUM CHLOR 0.9% PF (SALINE LOCK) 10ML VIAL/SYR IV SCH ×3 (07:00→22:21)
[2023-11-11] MEDS: ENOXAPARIN SOD 40 MG/0.4 ML SYRINGE SC SCH (08:58)
[2023-11-11] MEDS: cefTRIAXone 1GM/50ML D5W 50 ML IV SCH (08:59)
[2023-11-11] MEDS ORDERED: METF-370 PO (12:02)
[2023-11-11] MEDS ORDERED: ATOR40TA52 PO (12:02)
[2023-11-11] MEDS ORDERED: ENAL1TAB48 PO (12:02)
[2023-11-11] MEDS ORDERED: EZET10TA22 PO (12:02)
[2023-11-11] MEDS ORDERED: ASPI81CH59 PO (12:02)
[2023-11-11] MEDS ORDERED: RANO500T3 PO (12:02)
[2023-11-11] MEDS ORDERED: MET50T PO (12:02)
[2023-11-12 05:00] VITALS: BP 132/49; PULSE 78; RESP 20; TEMP 98.2; O2SAT 97
[2023-11-12] MEDS: SODIUM CHLOR 0.9% PF (SALINE LOCK) 10ML VIAL/SYR IV SCH (05:03)
[2023-11-12 08:20] VITALS: PULSE 69; RESP 16; O2SAT 97
[2023-11-12 09:00] VITALS: BP 131/58; PULSE 69; RESP 16; TEMP 97.9; O2SAT 97
[2023-11-12] MEDS: ENOXAPARIN SOD 40 MG/0.4 ML SYRINGE SC SCH (09:01)
[2023-11-12] MEDS: cefTRIAXone 1GM/50ML D5W 50 ML IV SCH (09:02)
[2023-11-12 09:37] LABS: Hepatitis B Surface Antigen Negative (Negative)
[2023-11-12 09:57] LABS: Hepatitis C Antibody Negative (Negative)
[2023-11-12] MEDS ORDERED: BACDST PO (10:57)
[2023-11-12 13:05] VITALS: BP 137/42; PULSE 68; RESP 16; TEMP 98.4; O2SAT 97
== END 2023-11-12 13:52 | disposition home or self-care (01) | DRG 720 ==
LOC: ER 11:51 → OVERFLOW 17:03 → EAST 11-11 01:14
PROVIDERS: ADMIT Internal Medicine; ATTEND Family Medicine
DX: A41.9 Sepsis, unspecified organism (principal); E87.1 Hypo-osmolality and hyponatremia; N39.0 Urinary tract infection, site not specified; E86.0 Dehydration; I10 Essential (primary) hypertension; E78.00 Pure hypercholesterolemia, unspecified; E66.01 Morbid (severe) obesity due to excess calories; E11.9 Type 2 diabetes mellitus without complications; Z68.41 Body mass index [BMI] 40.0-44.9, adult; I25.2 Old myocardial infarction; Z88.0 Allergy status to penicillin; Z88.6 Allergy status to analgesic agent; Z88.1 Allergy status to other antibiotic agents; Z95.1 Presence of aortocoronary bypass graft; Z79.899 Other long term (current) drug therapy; Z87.440 Personal history of urinary (tract) infections; Z82.49 Family history of ischemic heart disease and other diseases of the circulatory system; Z88.8 Allergy status to other drugs, medicaments and biological substances
CPT/HCPCS: 36415; 80053; 81001; 83605; 83690; 83880; 84484; 85025; 86803; 87040; 87086; 87340; G0378; J0696; J7060

== ENCOUNTER 2024-01-24 19:29 | Emergency (ER) | payer MEDICAID ==
[~2024-01-24] VITALS: Ht 157.5 cm; Wt 111.3 kg
[~2024-01-24 19:29] MED LIST changes: +ASPI81CH59 PO; +MET50T PO; +RANO500T3 PO
[2024-01-24 21:24] LABS: Urine Amorphous Crystal FEW /hpf (None Seen); Urine Bacteria FEW /hpf (None Seen); Urine Blood 3+ /uL (Negative); Urine Clarity Clear (Clear); Urine Color Light-Yellow (Yellow); Urine Protein, UAD TRACE (Negative); Urine Specific Gravity 1.009 (1.001-1.035); Urine Urobilinogen Normal (Negative); Urine WBC 26 /hpf (0 - 3)
[2024-01-24 21:40] LABS: Basophils # (auto) 0.1 10 ^3/uL (0-0.2); Basophils % (auto) 0.8 % (0.0-2.0); Eosinophils # (auto) 0.2 10 ^3/uL (0-0.8); Eosinophils % (auto) 1.9 % (0.0-7.0); Hematocrit 42.8 % (41.0-53.0); Lymphocytes # (auto) 3.2 10 ^3/uL (0.4-5.4); Lymphocytes % (auto) 36.6 % (10.0-50.0); Mean Corpuscular Hemoglobin 29.4 pg (28.0-32.0); Mean Corpuscular Hgb Conc. 32.7 g/dL (32.0-36.0); Mean Corpuscular Volume 89.8 fL (80.0-100.0); Monocytes # (auto) 0.6 10 ^3/uL (0-1.3); Neutrophils # (auto) 4.7 10 ^3/uL (1.6-8.6); Neutrophils % (auto) 53.7 % (37.0-80.0); Nucleated Red Blood Cells % 0.1 %; Red Blood Cells 4.77 10^6/uL (4.5-5.90); Red Cell Distribution Width 16.2 % (11.8-14.3); White Blood Cell 8.7 10^3/uL (4.4-10.8)
[2024-01-24 22:09] LABS: Alanine Aminotransferase 35 U/L (7-40); Albumin 4.7 g/dL (3.2-4.8); Alkaline Phosphatase 117 U/L (46-116); Anion Gap 10 (5-15); Aspartate Aminotransferase 17 U/L (13-40); BUN/Creatinine Ratio 18.9 (10.0-20.0); Blood Urea Nitrogen 10 mg/dL (9-23); Calcium 9.8 mg/dL (8.5-10.1); Carbon Dioxide 18 mmol/L (20-30); Chloride 99 mmol/L (98-107); Glucose 137 mg/dL (74-106); Potassium 4.2 mmol/L (3.5-5.1); Sodium 127 mmol/L (136-145)
[2024-01-24 22:10] LABS: Bilirubin, Total 0.4 mg/dL (0.2-1.0); Total Protein 7.2 g/dL (5.7-8.2)
[2024-01-25] MEDS ORDERED: cefTRIAXone 2GM/50ML D5W 50 ML IV ONE (01:45)
[2024-01-25] MEDS ORDERED: SODIUM CHLORIDE 0.9% 1,000 ML IV ONE (01:45)
[2024-01-25 07:14] VITALS: BP 139/75; PULSE 77; RESP 18; TEMP 98; O2SAT 98
== END 2024-01-25 04:24 | disposition left against medical advice (07) ==
LOC: ER 19:29
DX: N39.0 Urinary tract infection, site not specified (principal); E87.1 Hypo-osmolality and hyponatremia; E11.9 Type 2 diabetes mellitus without complications; E78.5 Hyperlipidemia, unspecified; I10 Essential (primary) hypertension; Z88.0 Allergy status to penicillin; Z88.1 Allergy status to other antibiotic agents; Z88.6 Allergy status to analgesic agent
CPT/HCPCS: 36415; 80053; 81001; 85025; 87086; 87088; 87186

== ENCOUNTER 2024-10-03 08:45 | Inpatient (IN) | payer MEDICAID ==
[~2024-10-03] VITALS: Ht 157.5 cm; Wt 109.3 kg
[2024-10-03 09:00] VITALS: PULSE 63; RESP 12; O2SAT 97
--- NOTE | 2024-10-03 09:11 | ED.PDOC ---
General HPI Comments 59 y.o panplegic male with PMH of UTI's, HI, HTN, HDL, DM, presents to the ED for an evaluation of a UTI. Patient reports 6 days ago he went to [facility] due to suprapubic pain, was diagnosed with a UTI and prescribed Penicillin. Patient finished course, went to follow up yesterday but was still noted to have a UTI and was prescribed a second round of antibiotics, Cipro. Patient mentions he is allergic to Cipro, called the hospital today and was advised to go into the ED for IV antibiotics. No fever, chills, nausea, vomiting reported. Chief Complaint: Urinary Time Seen by MD: 08:50 Primary Care Provider: Talya Reviewed notes: Nurses Notes, Medications, Allergies Allergies: Coded Allergies: Amoxicillin (Verified Allergy, Severe, 11/26/21) Acetaminophen (Verified Allergy, Unknown, 07/04/23) Ciprofloxacin (Verified Allergy, Unknown, 07/04/23) Ibuprofen (Verified Allergy, Unknown, 07/04/23) Penicillins (Verified Adverse Reaction, Intermediate, 05/07/23) Hot Flashes/Feels Hot during administration Home Meds Active Scripts Sulfamethoxazole W/Trimethopri (Bactrim Ds Tablet) 1 Tab Tb, 1 TAB PO BID, #28 TAB Prov:DALY VAUGHAN MD 11/12/23 Sulfamethoxazole W/Trimethopri (Bactrim Ds Tablet) 1 Tab Tb, 1 TAB PO BID for 10 Days, #20 TAB Prov:ZHANNA CISNEROS DO 11/05/23 Levofloxacin Hemihydrate (LEVAQUIN 500 MG) 500 Mg Tab, 500 MG PO DAILY for 7 Days, #7 TAB Prov:MERRILL HARDY MD 11/04/23 Levofloxacin Hemihydrate (LEVOFLOXACIN) 500 Mg Tab, 500 MG PO DAILY for 10 Days, #10 MG Prov:RAMBO AGUILAR MD 08/19/23 Phenazopyridine HCl (Phenazopyridine Hydrochlo) 100 Mg Tab, 100 MG PO Q8HP PRN, #10 TAB Prov:GEOVANY JOHNSON PAC 08/15/23 Sulfamethoxazole W/Trimethopri (Bactrim Ds Tablet) 1 Tab Tb, 1 TAB PO BID for 7 Days, #14 TAB Prov:GEOVANY JOHNSON PAC 08/15/23 Sennosides-Docusate Sodium (Senna Plus 50-8.6 mg) 1 Cap Cap, 1 CAP PO BID, #30 CAP Prov:MARTINEZ HARO 08/09/23 Phenazopyridine HCl (Phenazopyridine Hydrochlo) 200 Mg Tab, 200 MG PO TID, #6 TAB Prov:MARTINEZ HARO 08/09/23 Levofloxacin Hemihydrate (LEVAQUIN 500 MG) 500 Mg Tab, 1 TAB PO DAILY, #10 TAB Prov:MARTINEZ HARO 08/09/23 Enalapril Maleate (Enalapril Maleate) 20 Mg Tab, 1 TAB PO DAILY, #30 TAB 5 Refills Prov:THIEN BARKLEY MD 07/10/23 Acetaminophen (Tylenol) 325 Mg Cap, 325 MG PO Q4HPRN PRN, #30 CAP 0 Refills Take 1-2 caps po q4h prn for pain/fever (Do not exceed 3,000mg of acetaminophen in 24 hours) Prov:KACIE CERVANTES [facility] 03/06/23 Reported Medications Enalapril Maleate (Enalapril Maleate) 20 Mg Tab, 1 TAB PO BID, #180 TAB 1 Refill 11/11/23 Metformin Hydrochloride (Metformin Hcl) 500 Mg Tab, 1 TAB PO BID, #60 TAB 3 Refills 11/11/23 Metoprolol Tartrate (LOPRESSOR TABLET) 50 Mg Tb, 1 TAB PO BID, #60 TAB 5 Refills 11/11/23 Ezetimibe (Zetia) 10 Mg Tab, 1 TAB PO DAILY, #30 TAB 5 Refills 11/11/23 Ranolazine (Ranolazine ER) 500 Mg Tab, 500 MG PO TID, TAB 11/11/23 Aspirin (Aspirin Low Dose) 81 Mg Chw, 1 TAB PO DAILY, #90 TAB 3 Refills 11/11/23 Atorvastatin Calcium (ATORVASTATIN CALCIUM) 40 Mg Tab, 1 TAB PO DAILY, #30 TAB 5 Refills 11/11/23 Metformin Hydrochloride (Metformin Hcl) 500 Mg Tab, 500 MG PO BID for 30 Days, MG 07/06/23 Docusate Sodium (Colace) 100 Mg Cap, 100 MG PO BID, CAP 05/05/23 Atorvastatin Calcium (ATORVASTATIN CALCIUM) 40 Mg Tab, 1 TAB PO DAILY, #30 TAB 5 Refills 05/05/23 Ezetimibe (Zetia) 10 Mg Tab, 1 TAB PO DAILY, #30 TAB 5 Refills 05/05/23 Metoprolol Tartrate (Metoprolol Tartrate) 50 Mg Tab, 50 MG PO HS for 30 Days, MG 05/05/23 Aspirin (Aspirin) 81 Mg Chw, 81 MG PO DAILY, TAB.CHEW 05/05/23 Metformin Hydrochloride (Metformin Hcl) 500 Mg Tab, 1 TAB PO BID, #60 TAB 3 Refills 05/05/23 Ranolazine (Ranolazine ER) 1,000 Mg Tab, 500 MG PO TID, TAB 05/05/23 Information Source: Patient Mode of Arrival: Wheelchair Timing: Days Onset: Spontaneous History of: UTI Penile discharge: None Modifying factors: None Past Medical History PAST MEDICAL HISTORY: DM, High Lipids, HTN, HI, UTI'S Surgical History: CABG Family History Family History: Reviewed,noncontributory to illness Social History Smoker: Non-Smoker Alcohol: Denies ETOH Use Drugs: Denies Drug Use Lives In: Home Constitutional: denies: chills, diaphoresis, fatigue, fever, malaise, sweats, weakness, others EENTM: denies: blurred vision, double vision, ear bleeding, ear discharge, ear drainage, ear pain, ear ringing, eye pain, eye redness, hearing loss, mouth pain, mouth swelling, nasal discharge, nose bleeding, nose congestion, nose pain, photophobia, tearing, throat pain, throat swelling, voice changes, others Respiratory: denies: cough, hemoptysis, orthopnea, SOB at rest, shortness of breath, SOB with excertion, stridor, wheezing, others Cardiovascular: denies: chest pain, dizzy spells, diaphoresis, Dyspnea on exertion, edema, irregular heart beat, left arm pain, lightheadedness, palpitations, PND, syncope, others Gastrointestinal: reports: abdominal pain; denies: abdomen distended, blood streaked bowels, constipated, diarrhea, dysphagia, difficulty swallowing, hematemesis, melena, nausea, poor appetite, poor fluid intake, rectal bleeding, rectal pain, vomiting, others Genitourinary: denies: burning, dysuria, flank pain, frequency, hematuria, incontinence, penile discharge, penile sore, pain, testicle pain, testicle swelling, urgency, others Neurological: denies: dizziness, fainting, headache, left sided numbness, left sided weakness, numbness, paresthesia, pre-existing deficit, right sided numbness, right sided weakness, seizure, speech problems, tingling, tremors, weakness, others Musculoskeletal: denies: back pain, gout, joint pain, joint swelling, muscle pain, muscle stiffness, neck pain, others Integumetry: denies: bruises, change in color, change in hair/nails, dryness, laceration, lesions, lumps, rash, wounds, others Allergic/Immunocompromised: denies: Difficulty Healing, Frequent Infections, H robyn, Itching, others Hematologic/Lymphatic: denies: anemia, blood clots, easy bleeding, easy bruising, swollen glands, others Endocrine: denies: excessive hunger, excessive sweating, excessive thirst, excessive urination, flushing, intolerance to cold, intolerance to heat, unexplained weight gain, unexplained weight loss, others Psychiatric: denies: anxiety, bipolar disorder, depression, hopeless, panic disorder, schizophrenia, sleepless, suicidal, others All Other Systems: Reviewed and Negative Physical Exam General Appearance: Moderate Distress HEENT: Normal ENT Inspection, Pharynx Normal, TMs Normal Neck: Full Range of Motion, Non-Tender, Normal, Normal Inspection Respiratory: Chest Non-Tender, Lungs Clear, No Accessory Muscle Use, No Respiratory Distress, Normal Breath Sounds Cardiovascular: No Edema, No JVD, No Murmur, No Gallop, Normal Peripheral Pulses, Regular Rate/Rhythm Breast Exam: Deferred Gastrointestinal: No Organomegaly, Non Tender, No Pulsatile Mass, Normal Bowel Sounds, Soft Genitalia: Deferred Pelvic: Deferred Rectal: Deferred Extremities: Other (Paraplegic) Musculoskeletal : Apperance: Normal Neurologic: Alert, Speech Problem, Other (Paraplegic) Cerebellar Function: NOT DONE Reflexes: NOT DONE Skin: Normal Color Peripheral Pulses: 3+ Radial (R), 3+ Radial (L) Lymphatic: No Adenopathy Was a procedure done? Was a procedure done?: No Differential Diagnosis Kidney stone (Female): Musculoskeletal pain, Urinary obstruction, Urolithiasis Urinary Problem (Male): Epididymitis, Prostatitis, Plelonephritis, Urethritis, Urolithiasis, UTI X-Ray, Labs, Meds, VS Vital Signs Date Time Temp Pulse Resp B/P (MAP) Pulse Ox O2 Delivery O2 Flow Rate FiO2 10/03/24 09:00 63 12 134/63 (86) 97 10/03/24 09:00 63 12 97 Room Air* 0 21 10/03/24 08:58 98.9 68 20 151/62 (91) 99 Lab Test 10/03/24 09:30 Range/Units White Blood Count 8.0 4.4-10.8 10^3/uL Red Blood Count 4.62 4.5-5.90 10^6/uL Hemoglobin 14.0 13.5-17.5 g/dL Hematocrit 42.3 41.0-53.0 % Mean Corpuscular Volume 91.5 80.0-100.0 fL Mean Corpuscular Hemoglobin 30.2 28.0-32.0 pg Mean Corpuscular Hemoglobin Concent 33.0 32.0-36.0 g/dL Red Cell Distribution Width 15.8 H 11.8-14.3 % Platelet Count 260 140-450 10^3/uL Mean Platelet Volume 9.5 6.9-10.8 fL Neutrophils (%) (Auto) 51.8 37.0-80.0 % Lymphocytes (%) (Auto) 36.5 10.0-50.0 % Monocytes (%) (Auto) 8.8 0.0-12.0 % Eosinophils (%) (Auto) 2.1 0.0-7.0 % Basophils (%) (Auto) 0.8 0.0-2.0 % Neutrophils # (Auto) 4.1 1.6-8.6 10 ^3/uL Lymphocytes # (Auto) 2.9 0.4-5.4 10 ^3/uL Monocytes # (Auto) 0.7 0-1.3 10 ^3/uL Eosinophils # (Auto) 0.2 0-0.8 10 ^3/uL Basophils # (Auto) 0.1 0-0.2 10 ^3/uL Nucleated Red Blood Cells 0.0 % Urine Color Light-yellow Yellow Urine Clarity Clear Clear Urine pH 6.5 5.0-9.0 Urine Specific [place] 1.004 1.001-1.035 Urine Protein Negative Negative Urine Ketones Negative Negative Urine Blood Negative Negative /uL Urine Nitrite Negative Negative Urine Bilirubin Negative Negative Urine Urobilinogen Normal Negative mg/dL Urine Leukocyte Esterase 1+ Negative /uL Urine RBC <1 0 - 3 /hpf Urine WBC 4 0 - 3 /hpf Urine Squamous Epithelial Cells None seen <5 /hpf Urine Bacteria Many H None Seen /hpf Urine Glucose Normal Normal mg/dL Sodium Level 132 L 136-145 mmol/L Potassium Level 4.1 3.5-5.1 mmol/L Chloride Level 103 98-107 mmol/L Carbon Dioxide Level 21 20-31 mmol/L Anion Gap 8 5-15 Blood Urea Nitrogen 10 9-23 mg/dL Creatinine 0.54 L 0.700-1.30 mg/dL Glomerular Filtration Rate Calc 116 >90 mL/min BUN/Creatinine Ratio 18.5 10.0-20.0 Serum Glucose 135 H 74-106 mg/dL Calcium Level 10.2 8.7-10.4 mg/dL Troponin I High Sensitivity < 3 L </=54 ng/L Patient alert. Came in because he continues to have urinary tract infection. Has been treated at [facility] recently. Vitals stable. He is paraplegic. UA shows UTI. Does have many bacteria. Establish intravenous access. Was given Bactrim. Reviewed his history. Explained to the patient. Blood pressure slightly elevated. Continue cardiac monitoring. Cardiac marker within normal limits. Time of 1ST Reevaluation: 09:06 Reevaluation 1ST: Unchanged Patient Education/Counseling: Diagnosis, Treatment, Prognosis Family Education/Counseling: No Family Present Additional Information The following tests were ordered, and results were reviewed by me: LAB I discussed treatment and results with medical personnel and patient Departure 1 Departure Time of Disposition: 10:51 Impression: Primary Impression: Sepsis due to urinary tract infection Additional Impressions: Uncontrolled diabetes mellitus Qualified Codes: E13.65 - Other specified diabetes mellitus with hyperglycemia HTN (hypertension) Qualified Codes: I10 - Essential (primary) hypertension Disposition: ADMITTED INPATIENT Admit to: Med Surg Condition: Guarded Critical Care Note Critical Care Time?: No Stability Stability form required: No I personally scribed for RAMBO AGUILAR MD ([email or web address]) on 10/03/24 at 09:11. Electronically submitted by Tamanna Julien ([facility]). RAMBO AGUILAR MD Oct 03, 2024 09:11
[2024-10-03 09:44] LABS: Basophils # (auto) 0.1 10 ^3/uL (0-0.2); Basophils % (auto) 0.8 % (0.0-2.0); Eosinophils # (auto) 0.2 10 ^3/uL (0-0.8); Eosinophils % (auto) 2.1 % (0.0-7.0); Hematocrit 42.3 % (41.0-53.0); Lymphocytes # (auto) 2.9 10 ^3/uL (0.4-5.4); Lymphocytes % (auto) 36.5 % (10.0-50.0); Mean Corpuscular Hemoglobin 30.2 pg (28.0-32.0); Mean Corpuscular Volume 91.5 fL (80.0-100.0); Monocytes # (auto) 0.7 10 ^3/uL (0-1.3); Monocytes % (auto) 8.8 % (0.0-12.0); Neutrophils # (auto) 4.1 10 ^3/uL (1.6-8.6); Neutrophils % (auto) 51.8 % (37.0-80.0); Platelet Count (auto) 260 10^3/uL (140-450); Red Blood Cells 4.62 10^6/uL (4.5-5.90); Red Cell Distribution Width 15.8 % (11.8-14.3)
[2024-10-03 09:59] LABS: Chloride 103 mmol/L (98-107); Potassium 4.1 mmol/L (3.5-5.1)
[2024-10-03 10:00] LABS: Anion Gap 8 (5-15); Calcium 10.2 mg/dL (8.7-10.4); Carbon Dioxide 21 mmol/L (20-31)
[2024-10-03 10:05] LABS: BUN/Creatinine Ratio 18.5 (10.0-20.0); Blood Urea Nitrogen 10 mg/dL (9-23)
[2024-10-03 10:19] LABS: Urine Bacteria MANY /hpf (None Seen); Urine Blood Negative /uL (Negative); Urine Clarity Clear (Clear); Urine Color Light-Yellow (Yellow); Urine Protein, UAD Negative (Negative); Urine Specific Gravity 1.004 (1.001-1.035); Urine Urobilinogen Normal (Negative); Urine WBC 4 /hpf (0 - 3); Urine pH 6.5 (5.0-9.0)
[2024-10-03 10:26] LABS: Glucose 135 mg/dL (74-106); Sodium 132 mmol/L (136-145)
[2024-10-03] MEDS: SODIUM CHLORIDE 0.9% 1,000 ML IV ONE (11:14)
[2024-10-03] MEDS ORDERED: DEXTROSE (50%) 50ML SYRG IV PRN (12:00)
[2024-10-03] MEDS ORDERED: cefTRIAXone 1GM/50ML D5W 50 ML IV ONE (12:00)
[2024-10-03] MEDS ORDERED: AZTREONAM 1GM INJ 1 GM in D5W 5% 50 ML IV ONE (12:15)
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
[2024-10-03] MEDS ORDERED: MORPHINE SULFATE INJ 2 MG/ml SYRG IV PRN (12:30)
[2024-10-03] MEDS ORDERED: ONDANSETRON HCL 4 MG/2 ML VIAL IV PRN (12:30)
[2024-10-03] MEDS ORDERED: DOCUSATE SOD 100 MG CAP PO PRN (12:30)
[2024-10-03] MEDS: SODIUM CHLORIDE 0.9% 1,000 ML IV SCH (12:41)
--- NOTE | 2024-10-03 12:49 | DVH ---
INDICATION: COMPLICATED UTI TECHNIQUE: Multiple real-time sonographic images of the kidneys and bladder were obtained. COMPARISON: CT abdomen pelvis 08/19/2023 FINDINGS: RIGHT kidney measures 10.0 cm in length. A right upper pole renal cyst measuring 2.4 x 2.2 x 2.2 cm with no internal vascularity. No hydronephrosis. LEFT kidney measures 11.6 cm in length. No hydronephrosis. No large intraluminal masses are seen in the bladder. Patel catheter within decompressed urinary bladder. IMPRESSION: 1. No hydro nephrosis bilaterally. 2. Patel catheter within the decompressed urinary bladder. 3. Right upper pole renal cyst measuring 2.4 cm. HS:Y
[2024-10-03] MEDS: AZTREONAM 1GM INJ 1 GM in D5W 5% 50 ML IV ONE (13:25)
[2024-10-03 14:17] VITALS: BP 135/69; PULSE 79; RESP 20; TEMP 97; O2SAT 98
[2024-10-03 17:00] VITALS: BP 119/53; PULSE 63; RESP 20; TEMP 98.4; O2SAT 98
[2024-10-03] MEDS: ACCU-CHEK COMFORT CURVE STRIP VI SCH (17:21)
[2024-10-03] MEDS: InsuLIN REG 1unit/0.01ml Soln (100units/ml) SC SCH (17:21)
[2024-10-03] MEDS: ASPirin 81 mg TAB PO ONE (17:21)
[2024-10-03 20:00] VITALS: PULSE 66; PULSE 67; RESP 18; O2SAT 97
[2024-10-03] MEDS ORDERED: AZTREONAM 1GM INJ 1 GM in D5W 5% 50 ML IV SCH (20:00)
[2024-10-03 20:42] VITALS: BP 131/63; PULSE 66; RESP 18; TEMP 98.3; O2SAT 97
[2024-10-03] MEDS: METOPROLOL TARTRATE 50 MG TAB PO SCH (20:52)
[2024-10-03] MEDS: ATORVASTATIN 20 MG TAB PO SCH (20:53)
[2024-10-03] MEDS: AZTREONAM 1GM INJ 1 GM in D5W 5% 50 ML IV SCH (20:54)
[2024-10-03] MEDS ORDERED: DOCUSATE SOD 100 MG CAP PO SCH (22:00)
[2024-10-04] VITALS (9 sets, daily range): BP systolic 100–151; BP diastolic 37–59; PULSE 71–92; RESP 16–19; TEMP 97.6–98.4; O2SAT 94–98
[2024-10-04 06:35] LABS: Basophils # (auto) 0.1 10 ^3/uL (0-0.2); Eosinophils # (auto) 0.3 10 ^3/uL (0-0.8); Eosinophils % (auto) 4.1 % (0.0-7.0); Lymphocytes # (auto) 3.7 10 ^3/uL (0.4-5.4); Lymphocytes % (auto) 43.2 % (10.0-50.0); Mean Corpuscular Hemoglobin 30.4 pg (28.0-32.0); Mean Corpuscular Hgb Conc. 33.2 g/dL (32.0-36.0); Mean Corpuscular Volume 91.6 fL (80.0-100.0); Monocytes # (auto) 0.7 10 ^3/uL (0-1.3); Neutrophils # (auto) 3.7 10 ^3/uL (1.6-8.6); Neutrophils % (auto) 43.7 % (37.0-80.0); Platelet Count (auto) 256 10^3/uL (140-450); Red Blood Cells 4.26 10^6/uL (4.5-5.90); White Blood Cell 8.5 10^3/uL (4.4-10.8)
[2024-10-04 06:59] LABS: Chloride 105 mmol/L (98-107); Potassium 4.1 mmol/L (3.5-5.1)
[2024-10-04 07:00] LABS: Anion Gap 8 (5-15); Carbon Dioxide 21 mmol/L (20-31)
[2024-10-04 07:01] LABS: Calcium 9.6 mg/dL (8.7-10.4)
[2024-10-04 07:06] LABS: BUN/Creatinine Ratio 18.4 (10.0-20.0); Blood Urea Nitrogen 9 mg/dL (9-23); Glucose 109 mg/dL (74-106); Sodium 134 mmol/L (136-145)
[2024-10-04] MEDS ORDERED: cefTRIAXone 1GM/50ML D5W 50 ML IV SCH (09:00)
[2024-10-04] MEDS: ENALAPRIL MALEATE 10 MG TAB PO SCH (09:31)
[2024-10-04] MEDS: EZETIMIBE 10 MG TAB PO SCH (09:31)
[2024-10-04] MEDS: ASPirin 81 mg TAB PO SCH (09:32)
[2024-10-04] MEDS: ENOXAPARIN SOD 40 MG/0.4 ML SYRINGE SC SCH (09:32)
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
[2024-10-04] MEDS: RANOLAZINE ER 500 MG TAB PO SCH (22:17)
[2024-10-05] VITALS (8 sets, daily range): BP systolic 107–132; BP diastolic 50–71; PULSE 64–117; RESP 17–19; TEMP 97.7–98.3; O2SAT 95–98
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
[2024-10-06 01:00] VITALS: BP 136/69; PULSE 88; RESP 17; TEMP 97.3; O2SAT 95
[2024-10-06 05:00] VITALS: BP 131/61; PULSE 77; RESP 17; TEMP 97.4; O2SAT 96
[2024-10-06 06:55] LABS: Basophils # (auto) 0.1 10 ^3/uL (0-0.2); Eosinophils # (auto) 0.3 10 ^3/uL (0-0.8); Eosinophils % (auto) 3.9 % (0.0-7.0); Hematocrit 39.6 % (41.0-53.0); Hemoglobin 13.3 g/dL (13.5-17.5); Lymphocytes # (auto) 3.7 10 ^3/uL (0.4-5.4); Lymphocytes % (auto) 41.6 % (10.0-50.0); Mean Corpuscular Hemoglobin 30.6 pg (28.0-32.0); Mean Corpuscular Hgb Conc. 33.6 g/dL (32.0-36.0); Mean Corpuscular Volume 91.3 fL (80.0-100.0); Monocytes # (auto) 0.9 10 ^3/uL (0-1.3); Monocytes % (auto) 9.9 % (0.0-12.0); Neutrophils # (auto) 3.9 10 ^3/uL (1.6-8.6); Neutrophils % (auto) 43.6 % (37.0-80.0); Nucleated Red Blood Cells % 0.1 %; Platelet Count (auto) 249 10^3/uL (140-450); Red Blood Cells 4.34 10^6/uL (4.5-5.90); Red Cell Distribution Width 15.6 % (11.8-14.3); White Blood Cell 8.9 10^3/uL (4.4-10.8)
[2024-10-06 06:59] LABS: Calcium 9.8 mg/dL (8.7-10.4); Chloride 98 mmol/L (98-107); Potassium 3.8 mmol/L (3.5-5.1)
[2024-10-06 07:00] LABS: Anion Gap 10 (5-15); Carbon Dioxide 23 mmol/L (20-31)
[2024-10-06 07:05] LABS: BUN/Creatinine Ratio 17.1 (10.0-20.0); Blood Urea Nitrogen 7 mg/dL (9-23); Glucose 107 mg/dL (74-106); Sodium 131 mmol/L (136-145)
[2024-10-06 08:18] VITALS: BP 107/42; PULSE 83; RESP 17; TEMP 97.6; O2SAT 98
[2024-10-06 12:39] VITALS: BP 141/66; PULSE 83; RESP 18; TEMP 97.6; O2SAT 97
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
== END 2024-10-06 17:30 | disposition home or self-care (01) | DRG 466 ==
LOC: ER 08:45 → TELE 12:22 → TELE-CENTR 14:21 → CENTRAL 10-06 04:38
PROVIDERS: ATTEND Nurse Practitioner Acute Care
DX: T83.518A Infection and inflammatory reaction due to other urinary catheter, initial encounter (principal); A41.9 Sepsis, unspecified organism; G82.20 Paraplegia, unspecified; E87.1 Hypo-osmolality and hyponatremia; N10 Acute pyelonephritis; E78.5 Hyperlipidemia, unspecified; I10 Essential (primary) hypertension; E11.9 Type 2 diabetes mellitus without complications; I25.10 Atherosclerotic heart disease of native coronary artery without angina pectoris; Y83.8 Other surgical procedures as the cause of abnormal reaction of the patient, or of later complication, without mention of misadventure at the time of the procedure; Z88.6 Allergy status to analgesic agent; Z88.1 Allergy status to other antibiotic agents; Z88.0 Allergy status to penicillin; Z88.8 Allergy status to other drugs, medicaments and biological substances; Z79.899 Other long term (current) drug therapy; Z79.1 Long term (current) use of non-steroidal anti-inflammatories (NSAID); Z79.82 Long term (current) use of aspirin; Z95.1 Presence of aortocoronary bypass graft; Z87.440 Personal history of urinary (tract) infections; Z99.3 Dependence on wheelchair; I25.2 Old myocardial infarction; Z83.3 Family history of diabetes mellitus; Z82.49 Family history of ischemic heart disease and other diseases of the circulatory system; Z79.84 Long term (current) use of oral hypoglycemic drugs; Z90.81 Acquired absence of spleen; Y92.89 Other specified places as the place of occurrence of the external cause
CPT/HCPCS: 36415; 76775; 80048; 81001; 82962; 83036; 83605; 84484; 85025; 87040; 87086; G0378; J1815; J7060

== ENCOUNTER 2024-10-10 08:33 | Inpatient (IN) | payer MEDICAID ==
[~2024-10-10] VITALS: Ht 157.5 cm; Wt 106.0 kg
--- NOTE | 2024-10-10 10:45 | ED.PDOC ---
General HPI Comments 59y M who presents to the ED for chief complaint of urinary complaints. Pt has myers in place draining urine and states he has been smelling foul odor and states "I have UTI." Pt states he is having flank pain and associated symptoms for the past 2 days. Pt states he gets Myers replaced every month and got it replaced on the Sep. Pt in the ED, has vitals in normal range. Pt otherwise denies any other symptoms. pt just finished another course of antibiotic an has been having recurrent utis Chief Complaint: Urinary Time Seen by MD: 10:38 Primary Care Provider: KEY Reviewed notes: Medications Allergies: Coded Allergies: Amoxicillin (Verified Allergy, Severe, 11/26/21) Acetaminophen (Verified Allergy, Unknown, 07/04/23) Ciprofloxacin (Verified Allergy, Unknown, 07/04/23) Ibuprofen (Verified Allergy, Unknown, 07/04/23) Penicillins (Verified Adverse Reaction, Intermediate, 05/07/23) Hot Flashes/Feels Hot during administration Home Meds Active Scripts Sulfamethoxazole W/Trimethopri (Bactrim Ds Tablet) 1 Tab Tb, 1 TAB PO BID, #28 TAB Prov:DALY VAUGHAN MD 11/12/23 Sulfamethoxazole W/Trimethopri (Bactrim Ds Tablet) 1 Tab Tb, 1 TAB PO BID for 10 Days, #20 TAB Prov:ZHANNA CISNEROS DO 11/05/23 Levofloxacin Hemihydrate (LEVAQUIN 500 MG) 500 Mg Tab, 500 MG PO DAILY for 7 Days, #7 TAB Prov:MERRILL HARDY MD 11/04/23 Levofloxacin Hemihydrate (LEVOFLOXACIN) 500 Mg Tab, 500 MG PO DAILY for 10 Days, #10 MG Prov:RAMBO AGUILAR MD 08/19/23 Phenazopyridine HCl (Phenazopyridine Hydrochlo) 100 Mg Tab, 100 MG PO Q8HP PRN, #10 TAB Prov:GEOVANY JOHNSON PAC 08/15/23 Sulfamethoxazole W/Trimethopri (Bactrim Ds Tablet) 1 Tab Tb, 1 TAB PO BID for 7 Days, #14 TAB Prov:GEOVANY JOHNSON PAC 08/15/23 Sennosides-Docusate Sodium (Senna Plus 50-8.6 mg) 1 Cap Cap, 1 CAP PO BID, #30 CAP Prov:MARTINEZ HARO 08/09/23 Phenazopyridine HCl (Phenazopyridine Hydrochlo) 200 Mg Tab, 200 MG PO TID, #6 TAB Prov:MARTINEZ HARO 08/09/23 Levofloxacin Hemihydrate (LEVAQUIN 500 MG) 500 Mg Tab, 1 TAB PO DAILY, #10 TAB Prov:MARTINEZ HARO 08/09/23 Enalapril Maleate (Enalapril Maleate) 20 Mg Tab, 1 TAB PO DAILY, #30 TAB 5 Refills Prov:THIEN BARKLEY MD 07/10/23 Acetaminophen (Tylenol) 325 Mg Cap, 325 MG PO Q4HPRN PRN, #30 CAP 0 Refills Take 1-2 caps po q4h prn for pain/fever (Do not exceed 3,000mg of acetaminophen in 24 hours) Prov:KACIE CERVANTES [facility] 03/06/23 Reported Medications Enalapril Maleate (Enalapril Maleate) 20 Mg Tab, 1 TAB PO BID, #180 TAB 1 Refill 11/11/23 Metformin Hydrochloride (Metformin Hcl) 500 Mg Tab, 1 TAB PO BID, #60 TAB 3 Refills 11/11/23 Metoprolol Tartrate (LOPRESSOR TABLET) 50 Mg Tb, 1 TAB PO BID, #60 TAB 5 Refills 11/11/23 Ezetimibe (Zetia) 10 Mg Tab, 1 TAB PO DAILY, #30 TAB 5 Refills 11/11/23 Ranolazine (Ranolazine ER) 500 Mg Tab, 500 MG PO TID, TAB 11/11/23 Aspirin (Aspirin Low Dose) 81 Mg Chw, 1 TAB PO DAILY, #90 TAB 3 Refills 11/11/23 Atorvastatin Calcium (ATORVASTATIN CALCIUM) 40 Mg Tab, 1 TAB PO DAILY, #30 TAB 5 Refills 11/11/23 Metformin Hydrochloride (Metformin Hcl) 500 Mg Tab, 500 MG PO BID for 30 Days, MG 07/06/23 Docusate Sodium (Colace) 100 Mg Cap, 100 MG PO BID, CAP 05/05/23 Atorvastatin Calcium (ATORVASTATIN CALCIUM) 40 Mg Tab, 1 TAB PO DAILY, #30 TAB 5 Refills 05/05/23 Ezetimibe (Zetia) 10 Mg Tab, 1 TAB PO DAILY, #30 TAB 5 Refills 05/05/23 Metoprolol Tartrate (Metoprolol Tartrate) 50 Mg Tab, 50 MG PO HS for 30 Days, MG 05/05/23 Aspirin (Aspirin) 81 Mg Chw, 81 MG PO DAILY, TAB.CHEW 05/05/23 Metformin Hydrochloride (Metformin Hcl) 500 Mg Tab, 1 TAB PO BID, #60 TAB 3 Refills 05/05/23 Ranolazine (Ranolazine ER) 1,000 Mg Tab, 500 MG PO TID, TAB 05/05/23 Information Source: Patient Mode of Arrival: Wheelchair Brought in by: family Past Medical History PAST MEDICAL HISTORY: DM, High Lipids, HTN, NE, UTI'S Past Medical History (Other): recurrent UTIs, urinary incontinence with chronic indwelling myers Surgical History: CABG Family History Family History: Reviewed,noncontributory to illness Social History Smoker: Non-Smoker Alcohol: Denies ETOH Use Drugs: Denies Drug Use Lives In: Home Constitutional: denies: chills, diaphoresis, fatigue, fever, malaise, sweats, weakness, others EENTM: denies: blurred vision, double vision, ear bleeding, ear discharge, ear drainage, ear pain, ear ringing, eye pain, eye redness, hearing loss, mouth pain, mouth swelling, nasal discharge, nose bleeding, nose congestion, nose pain, photophobia, tearing, throat pain, throat swelling, voice changes, others Respiratory: denies: cough, hemoptysis, orthopnea, SOB at rest, shortness of breath, SOB with excertion, stridor, wheezing, others Cardiovascular: denies: chest pain, dizzy spells, diaphoresis, Dyspnea on exertion, edema, irregular heart beat, left arm pain, lightheadedness, palpitations, PND, syncope, others Gastrointestinal: denies: abdomen distended, abdominal pain, blood streaked bowels, constipated, diarrhea, dysphagia, difficulty swallowing, hematemesis, melena, nausea, poor appetite, poor fluid intake, rectal bleeding, rectal pain, vomiting, others Genitourinary: reports: dysuria, flank pain; denies: burning, frequency, hematuria, incontinence, penile discharge, penile sore, pain, testicle pain, testicle swelling, urgency, others Neurological: denies: dizziness, fainting, headache, left sided numbness, left sided weakness, numbness, paresthesia, pre-existing deficit, right sided numbness, right sided weakness, seizure, speech problems, tingling, tremors, weakness, others Musculoskeletal: denies: back pain, gout, joint pain, joint swelling, muscle pain, muscle stiffness, neck pain, others Integumetry: denies: bruises, change in color, change in hair/nails, dryness, laceration, lesions, lumps, rash, wounds, others Allergic/Immunocompromised: denies: Difficulty Healing, Frequent Infections, Hives, Itching, others Hematologic/Lymphatic: denies: anemia, blood clots, easy bleeding, easy bruising, swollen glands, others Endocrine: denies: excessive hunger, excessive sweating, excessive thirst, excessive urination, flushing, intolerance to cold, intolerance to heat, unexplained weight gain, unexplained weight loss, others Psychiatric: denies: anxiety, bipolar disorder, depression, hopeless, panic di sorder, schizophrenia, sleepless, suicidal, others All Other Systems: Reviewed and Negative Physical Exam General Appearance: Other HEENT: Normal ENT Inspection, Pharynx Normal, TMs Normal Neck: Full Range of Motion, Non-Tender, Normal, Normal Inspection Respiratory: Chest Non-Tender, Lungs Clear, No Accessory Muscle Use, No Respiratory Distress, Normal Breath Sounds Cardiovascular: No Edema, No JVD, No Murmur, No Gallop, Normal Peripheral Pulses, Regular Rate/Rhythm Breast Exam: Deferred Gastrointestinal: Other (pt has myers in place, draining yellow and clear urine, ) Genitalia: Deferred Pelvic: Deferred Rectal: Deferred Extremities: No calf tenderness, Normal capillary refill, Normal inspection, Normal range of motion, Non-tender, No pedal edema Musculoskeletal : Apperance: Normal 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 Was a procedure done?: No Differential Diagnosis Kidney stone (Female): N/A Urinary Problem (Male): Bladder Outlet, Bladder Obstruction, Prostatitis, Plelonephritis, Renal Failure, Urethritis, Urinary Retention, Urolithiasis, UTI, Other (cellulitus) X-Ray, Labs, Meds, VS Vital Signs Date Time Temp Pulse Resp B/P (MAP) Pulse Ox O2 Delivery O2 Flow Rate FiO2 10/10/24 11:35 99.0 87 18 138/60 (86) 99 99.0 10/10/24 11:35 61 18 99 Room Air 10/10/24 08:55 98.6 62 18 134/74 (94) 97 Lab Test 10/10/24 11:55 10/10/24 11:03 Range/Units Urine Color Light-yellow Yellow Urine Clarity Turbid H Clear Urine pH 6.5 5.0-9.0 Urine Specific [place] 1.011 1.001-1.035 Urine Protein Negative Negative Urine Ketones Negative Negative Urine Blood 3+ H Negative /uL Urine Nitrite 2+ H Negative Urine Bilirubin Negative Negative Urine Urobilinogen Normal Negative mg/dL Urine Leukocyte Esterase 2+ Negative /uL Urine RBC 74 0 - 3 /hpf Urine WBC 25 0 - 3 /hpf Urine Squamous Epithelial Cells Few <5 /hpf Urine Amorphous Crystals Few None Seen /hpf Urine Bacteria Few H None Seen /hpf Urine Glucose Trace Normal mg/dL White Blood Count 10.0 4.4-10.8 10^3/uL Red Blood Count 4.41 L 4.5-5.90 10^6/uL Hemoglobin 13.3 L 13.5-17.5 g/dL Hematocrit 40.5 L 41.0-53.0 % Mean Corpuscular Volume 91.9 80.0-100.0 fL Mean Corpuscular Hemoglobin 30.2 28.0-32.0 pg Mean Corpuscular Hemoglobin Concent 32.9 32.0-36.0 g/dL Red Cell Distribution Width 16.2 H 11.8-14.3 % Platelet Count 277 140-450 10^3/uL Mean Platelet Volume 9.7 6.9-10.8 fL Neutrophils (%) (Auto) 51.0 37.0-80.0 % Lymphocytes (%) (Auto) 34.8 10.0-50.0 % Monocytes (%) (Auto) 10.2 0.0-12.0 % Eosinophils (%) (Auto) 2.8 0.0-7.0 % Basophils (%) (Auto) 1.2 0.0-2.0 % Neutrophils # (Auto) 5.1 1.6-8.6 10 ^3/uL Lymphocytes # (Auto) 3.5 0.4-5.4 10 ^3/uL Monocytes # (Auto) 1.0 0-1.3 10 ^3/uL Eosinophils # (Auto) 0.3 0-0.8 10 ^3/uL Basophils # (Auto) 0.1 0-0.2 10 ^3/uL Nucleated Red Blood Cells 0.1 % Sodium Level 132 L 136-145 mmol/L Potassium Level 4.4 3.5-5.1 mmol/L Chloride Level 103 98-107 mmol/L Carbon Dioxide Level 21 20-31 mmol/L Anion Gap 8 5-15 Blood Urea Nitrogen 15 9-23 mg/dL Creatinine 0.82 0.700-1.30 mg/dL Glomerular Filtration Rate Calc 102 >90 mL/min BUN/Creatinine Ratio 18.3 10.0-20.0 Serum Glucose 92 74-106 mg/dL Calcium Level 10.0 8.7-10.4 mg/dL Time of 1ST Reevaluation: 11:10 Reevaluation 1ST: Unchanged Time of 2ND Reevaluation: 12:55 Reevaluation 2ND: Unchanged Patient Education/Counseling: Diagnosis, Treatment Family Education/Counseling: Diagnosis, Treatment Additional Information - I reviewed the following notes from patient's past medical encounters:just admitted for pyelonephritis 10/03/24, 11/10/23, also in jun and april of 2023 - The following tests were ordered, and results were reviewed by me: (Labs, X- Ray, EKG): CBC, CMP, UA - Additional information was gathered from interviewing the following independent Historian: (Family, Other Providers, EMT): family member - I reviewed and agreed with the following test results read by other provider: (X-ray, CT, US): denies - I discussed treatments and results with medical personnel and: (consultants, family): hospitalist pt has recurrent UTIs and failed another course. he still has symptoms and an utI, with indwelling myers, with recent pyelonephritis. he will be admitted for iv abx Departure 1 Departure Time of Disposition: 12:58 Impression: Primary Impression: Cystitis and urethritis due to chlamydia Additional Impression: Flank pain Disposition: ADMITTED INPATIENT Admit to: Med Surg Condition: Stable Critical Care Note Critical Care Time?: No Stability Stability form required: No Heart Score Heart Score: Heart Score Response (Comments) Value History N/A 0 EKG N/A 0 Age N/A 0 Risk Factors N/A 0 Troponin N/A 0 Total 0 I personally scribed for ANOOP ONEAL MD ([email or web address]) on 10/10/24 at 10:45. Electronically submitted by Juliano Bowman ([facility]). ANOOP ONELA MD Oct 10, 2024 10:45
[2024-10-10 11:31] LABS: Basophils # (auto) 0.1 10 ^3/uL (0-0.2); Basophils % (auto) 1.2 % (0.0-2.0); Eosinophils # (auto) 0.3 10 ^3/uL (0-0.8); Eosinophils % (auto) 2.8 % (0.0-7.0); Hematocrit 40.5 % (41.0-53.0); Hemoglobin 13.3 g/dL (13.5-17.5); Lymphocytes # (auto) 3.5 10 ^3/uL (0.4-5.4); Lymphocytes % (auto) 34.8 % (10.0-50.0); Mean Corpuscular Hemoglobin 30.2 pg (28.0-32.0); Mean Corpuscular Hgb Conc. 32.9 g/dL (32.0-36.0); Mean Corpuscular Volume 91.9 fL (80.0-100.0); Monocytes % (auto) 10.2 % (0.0-12.0); Neutrophils # (auto) 5.1 10 ^3/uL (1.6-8.6); Nucleated Red Blood Cells % 0.1 %; Platelet Count (auto) 277 10^3/uL (140-450); Red Blood Cells 4.41 10^6/uL (4.5-5.90); Red Cell Distribution Width 16.2 % (11.8-14.3)
[2024-10-10 11:43] LABS: Chloride 103 mmol/L (98-107); Potassium 4.4 mmol/L (3.5-5.1)
[2024-10-10 11:45] LABS: Anion Gap 8 (5-15); Carbon Dioxide 21 mmol/L (20-31); Sodium 132 mmol/L (136-145)
[2024-10-10 11:50] LABS: BUN/Creatinine Ratio 18.3 (10.0-20.0); Blood Urea Nitrogen 15 mg/dL (9-23); Glucose 92 mg/dL (74-106)
[2024-10-10 12:18] LABS: Urine Amorphous Crystal FEW /hpf (None Seen); Urine Bacteria FEW /hpf (None Seen); Urine Blood 3+ /uL (Negative); Urine Clarity Turbid (Clear); Urine Color Light-Yellow (Yellow); Urine Protein, UAD Negative (Negative); Urine Specific Gravity 1.011 (1.001-1.035); Urine Squamous Epithelial Cell FEW /hpf (<5); Urine Urobilinogen Normal (Negative); Urine WBC 25 /hpf (0 - 3); Urine pH 6.5 (5.0-9.0)
[2024-10-10] MEDS ORDERED: MORPHINE SULFATE INJ 2 MG/ml SYRG IV PRN ×2 (15:45)
[2024-10-10] MEDS ORDERED: ACETAMINOPHEN 325 MG TAB PO PRN (15:45)
[2024-10-10] MEDS ORDERED: ONDANSETRON HCL 4 MG/2 ML VIAL IV PRN (15:45)
[2024-10-10] MEDS ORDERED: NITROGLYCERIN 0.4 MG SL TAB SL PRN (15:45)
[2024-10-10] MEDS: LACTATED RINGER'S 1,000 ML IV ONE (16:00)
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
--- NOTE | 2024-10-10 17:02 | DVH ---
History: check myers placement Comparison: None Technique: Grayscale and color Doppler ultrasound of the pelvis was obtained. Findings/ IMPRESSION: Myers catheter in satisfactory position within the urinary bladder.
[2024-10-10] MEDS: KETOROLAC TROMETH 30 MG/ML 1ML VIAL IV ONE (19:59)
[2024-10-10] MEDS: MEROPENEM 1GM IVPB 50 ML IV SCH (22:50)
[2024-10-10] MEDS: ATORVASTATIN 20 MG TAB PO SCH (22:50)
[2024-10-10] MEDS: METOPROLOL TARTRATE 50 MG TAB PO SCH (22:51)
[2024-10-10] MEDS: HYDROcodone-ACET 5/325MG TAB PO PRN (22:51)
[2024-10-10] MEDS: RANOLAZINE ER 500 MG TAB PO SCH (22:52)
[2024-10-10] MEDS: ENALAPRIL MALEATE 10 MG TAB PO SCH (22:53)
[2024-10-11] VITALS (7 sets, daily range): BP systolic 140–158; BP diastolic 57–78; PULSE 66–86; RESP 17–20; TEMP 97.3–98.9; O2SAT 98–99
[2024-10-11 03:16] LABS: Basophils # (auto) 0.1 10 ^3/uL (0-0.2); Basophils % (auto) 1.1 % (0.0-2.0); Eosinophils # (auto) 0.3 10 ^3/uL (0-0.8); Eosinophils % (auto) 3.2 % (0.0-7.0); Hematocrit 40.9 % (41.0-53.0); Hemoglobin 13.5 g/dL (13.5-17.5); Lymphocytes # (auto) 3.6 10 ^3/uL (0.4-5.4); Lymphocytes % (auto) 40.2 % (10.0-50.0); Mean Corpuscular Hemoglobin 30.1 pg (28.0-32.0); Monocytes # (auto) 0.7 10 ^3/uL (0-1.3); Monocytes % (auto) 7.6 % (0.0-12.0); Neutrophils # (auto) 4.3 10 ^3/uL (1.6-8.6); Neutrophils % (auto) 47.9 % (37.0-80.0); Nucleated Red Blood Cells % 0.1 %; Platelet Count (auto) 259 10^3/uL (140-450); Red Cell Distribution Width 15.6 % (11.8-14.3)
[2024-10-11 03:49] LABS: Albumin 4.4 g/dL (3.2-4.8); Alkaline Phosphatase 99 U/L (46-116); Anion Gap 7 (5-15); Aspartate Aminotransferase 13 U/L (13-40); BUN/Creatinine Ratio 27.3 (10.0-20.0); Bilirubin, Total 0.4 mg/dL (0.2-1.0); Blood Urea Nitrogen 15 mg/dL (9-23); Calcium 9.7 mg/dL (8.7-10.4); Carbon Dioxide 22 mmol/L (20-31); Chloride 100 mmol/L (98-107); Glucose 106 mg/dL (74-106); Potassium 4.1 mmol/L (3.5-5.1); Total Protein 6.8 g/dL (5.7-8.2)
[2024-10-11 03:53] LABS: Alanine Aminotransferase 47 U/L (7-40); Sodium 129 mmol/L (136-145)
[2024-10-11] MEDS: ENOXAPARIN SOD 40 MG/0.4 ML SYRINGE SC SCH (10:37)
[2024-10-11] MEDS: SODIUM CHLORIDE 0.9% 1,000 ML IV SCH (13:15)
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
[2024-10-11 19:14] LABS: Anion Gap 8 (5-15); Carbon Dioxide 22 mmol/L (20-31); Chloride 102 mmol/L (98-107); Potassium 4.7 mmol/L (3.5-5.1)
[2024-10-11 19:15] LABS: Sodium 132 mmol/L (136-145)
[2024-10-11 19:16] LABS: Calcium 10.5 mg/dL (8.7-10.4)
[2024-10-11 19:20] LABS: BUN/Creatinine Ratio 19.6 (10.0-20.0); Blood Urea Nitrogen 10 mg/dL (9-23)
[2024-10-11 19:22] LABS: Glucose 114 mg/dL (74-106)
[2024-10-12] VITALS (9 sets, daily range): BP systolic 110–139; BP diastolic 53–80; PULSE 68–90; RESP 16–20; TEMP 36.8; O2SAT 96–99
[2024-10-12 06:47] LABS: Basophils # (auto) 0.1 10 ^3/uL (0-0.2); Basophils % (auto) 0.7 % (0.0-2.0); Eosinophils # (auto) 0.2 10 ^3/uL (0-0.8); Eosinophils % (auto) 2.5 % (0.0-7.0); Hematocrit 43.8 % (41.0-53.0); Hemoglobin 14.8 g/dL (13.5-17.5); Mean Corpuscular Hemoglobin 30.8 pg (28.0-32.0); Mean Corpuscular Hgb Conc. 33.8 g/dL (32.0-36.0); Mean Corpuscular Volume 91.2 fL (80.0-100.0); Monocytes # (auto) 0.8 10 ^3/uL (0-1.3); Monocytes % (auto) 7.9 % (0.0-12.0); Neutrophils # (auto) 5.6 10 ^3/uL (1.6-8.6); Neutrophils % (auto) 57.9 % (37.0-80.0); Nucleated Red Blood Cells % 0.1 %; Platelet Count (auto) 318 10^3/uL (140-450); Red Cell Distribution Width 15.7 % (11.8-14.3); White Blood Cell 9.7 10^3/uL (4.4-10.8)
[2024-10-12 06:48] LABS: Albumin 4.6 g/dL (3.2-4.8); Alkaline Phosphatase 110 U/L (46-116); Anion Gap 10 (5-15); BUN/Creatinine Ratio 18.4 (10.0-20.0); Carbon Dioxide 23 mmol/L (20-31); Chloride 101 mmol/L (98-107); Potassium 4.2 mmol/L (3.5-5.1)
[2024-10-12 06:49] LABS: Bilirubin, Total 0.5 mg/dL (0.2-1.0); Total Protein 7.3 g/dL (5.7-8.2)
[2024-10-12 06:56] LABS: Alanine Aminotransferase 42 U/L (7-40); Aspartate Aminotransferase 11 U/L (13-40); Blood Urea Nitrogen 9 mg/dL (9-23); Calcium 10.6 mg/dL (8.7-10.4); Glucose 138 mg/dL (74-106); Sodium 134 mmol/L (136-145)
[2024-10-12] MEDS ORDERED: NITR50CA24 PO (15:47)
[2024-10-12] MEDS ORDERED: CIPR-173 PO (15:47)
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
[2024-10-12] MEDS ORDERED: FOSF3POW PO (17:19)
[2024-10-13 12:05] LABS: Hepatitis B Surface Antigen Negative (Negative)
[2024-10-13 13:26] LABS: Hepatitis C Antibody Negative (Negative)
== END 2024-10-12 18:45 | disposition home or self-care (01) | DRG 466 ==
LOC: ER 08:33 → OVERFLOW 15:40 → CENTRAL 15:47
PROVIDERS: ADMIT Student in an Organized Health Care Education/Training Program; ATTEND Student in an Organized Health Care Education/Training Program
DX: T83.518A Infection and inflammatory reaction due to other urinary catheter, initial encounter (principal); G82.20 Paraplegia, unspecified; E87.1 Hypo-osmolality and hyponatremia; A56.01 Chlamydial cystitis and urethritis; E11.9 Type 2 diabetes mellitus without complications; E78.5 Hyperlipidemia, unspecified; I10 Essential (primary) hypertension; Z88.0 Allergy status to penicillin; Z88.1 Allergy status to other antibiotic agents; Z88.6 Allergy status to analgesic agent; Z99.3 Dependence on wheelchair; Z95.1 Presence of aortocoronary bypass graft; I25.2 Old myocardial infarction; Z86.19 Personal history of other infectious and parasitic diseases; Y84.8 Other medical procedures as the cause of abnormal reaction of the patient, or of later complication, without mention of misadventure at the time of the procedure; Y92.89 Other specified places as the place of occurrence of the external cause
CPT/HCPCS: 36415; 80048; 80053; 81001; 85025; 86803; 87081; 87086; 87088; 87186; 87340; G0378; J1885; J2185

== ENCOUNTER 2024-11-08 09:01 | Emergency (ER) | payer MEDICAID ==
[~2024-11-08] VITALS: Ht 157.5 cm; Wt 105.0 kg
[~2024-11-08 09:01] MED LIST changes: -ACET1CAP14 PO; -ASPI81CH49 PO; -BACDST PO; -DOCU-94 PO; +FOSF3POW PO; -LEVO500T91 PO; -MET50T PO; +NITR50CA24 PO; -PHEN-1044 PO; -PHEN-922 PO; -RANO500T3 PO
[2024-11-08 09:30] VITALS: BP 150/62; PULSE 74; RESP 20; TEMP 98; O2SAT 97
[2024-11-08 09:36] LABS: Urine Bacteria FEW /hpf (None Seen); Urine Blood 1+ /uL (Negative); Urine Clarity Clear (Clear); Urine Color Light-Yellow (Yellow); Urine Protein, UAD TRACE (Negative); Urine Specific Gravity 1.009 (1.001-1.035); Urine Squamous Epithelial Cell FEW /hpf (<5); Urine Urobilinogen Normal (Negative); Urine WBC 32 /HPF (0-3)
[2024-11-08] MEDS: cefTRIAXone SOD 1,000 MG VL IM ONE (09:47)
--- NOTE | 2024-11-08 09:49 | ED.PDOC ---
General HPI Comments A 59 YEAR OLD MALE PRESENTS TO THE ED WITH COMPLAINT OF UTI SYMPTOMS. PATIENT STATES HE HAS A HISTORY OF UTIS AND HAS A MAIN CATHETER IN PLACE AND HAS BEEN EXPERIENCING PAINFUL URINATION WITH A BURNING SENSATION FOR THE PAST 3 DAYS. PATIENT DENIES HEMATURIA, FLANK PAIN, FEVER, CHILLS, SHORTNESS OF BREATH, CHEST PAIN, ABDOMINAL PAIN, NAUSEA, VOMITING, HEADACHE, OR OTHER COMPLAINTS. NO OTHER SYMPTOMS OR MODIFYING FACTORS AT THIS TIME. PATIENT IS ALERT, ORIENTED X 4, AND HAS STEADY GAIT. Chief Complaint: Urinary Time Seen by MD: 09:11 Primary Care Provider: EMMY Reviewed notes: Nurses Notes, Medications, Allergies Allergies: Coded Allergies: Amoxicillin (Verified Allergy, Severe, 11/26/21) Acetaminophen (Verified Allergy, Unknown, 07/04/23) Ciprofloxacin (Verified Allergy, Unknown, 07/04/23) Ibuprofen (Verified Allergy, Unknown, 07/04/23) Penicillins (Verified Adverse Reaction, Intermediate, 05/07/23) Hot Flashes/Feels Hot during administration Home Meds Active Scripts Sulfamethoxazole W/Trimethopri (Bactrim Ds Tablet) 1 Tab Tb, 1 TAB PO BID for 10 Days, #20 TAB Prov:MARTINEZ HARO 11/08/24 Fosfomycin Tromethamine (Fosfomycin Tromethamine) 3 Gm Pow, 3 GM PO ONCE for 1 Day, #1 POW 0 Refills Prov:SUSIE LOVE MD 10/12/24 Nitrofurantoin (Macrodantin) 50 Mg Cap, 1 CAP PO BID for 10 Days, #20 CAP 0 Refills Prov:SUSIE LOVE MD 10/12/24 Sennosides-Docusate Sodium (Senna Plus 50-8.6 mg) 1 Cap Cap, 1 CAP PO BID, #30 CAP Prov:MARTINEZ HARO 08/09/23 Enalapril Maleate (Enalapril Maleate) 20 Mg Tab, 1 TAB PO DAILY, #30 TAB 5 Refills Prov:THIEN BARKLEY MD 07/10/23 Reported Medications Aspirin (Aspirin Low Dose) 81 Mg Chw, 1 TAB PO DAILY, #90 TAB 3 Refills 11/11/23 Atorvastatin Calcium (ATORVASTATIN CALCIUM) 40 Mg Tab, 1 TAB PO DAILY, #30 TAB 5 Refills 11/11/23 Ezetimibe (Zetia) 10 Mg Tab, 1 TAB PO DAILY, #30 TAB 5 Refills 05/05/23 Metoprolol Tartrate (Metoprolol Tartrate) 50 Mg Tab, 50 MG PO HS for 30 Days, MG 05/05/23 Metformin Hydrochloride (Metformin Hcl) 500 Mg Tab, 1 TAB PO BID, #60 TAB 3 Refills 05/05/23 Ranolazine (Ranolazine ER) 1,000 Mg Tab, 500 MG PO TID, TAB 05/05/23 Information Source: Patient Mode of Arrival: Ambulatory Severity: Moderate Inability to void: None Timing: Days Duration: Since onset, Days Prehospital treatment: None Onset: Spontaneous Symptoms: Dysuria, Frequency, Urgency History of: UTI, Other (MAIN CATHETER ) Location: Suprapubic Penile discharge: None Modifying factors: None associated signs and symptoms: Dysuria, Frequency, Urgency Past Medical History PAST MEDICAL HISTORY: DM, High Lipids, HTN, UTI'S Past Medical History (Other): PARAPLEGIC Surgical History: CABG Family History Family History: Reviewed,noncontributory to illness Social History Smoker: Non-Smoker Alcohol: Denies ETOH Use Drugs: Denies Drug Use Lives In: Home Constitutional: denies: chills, diaphoresis, fatigue, fever, malaise, sweats, weakness, others EENTM: denies: blurred vision, double vision, ear bleeding, ear discharge, ear drainage, ear pain, ear ringing, eye pain, eye redness, hearing loss, mouth pain, mouth swelling, nasal discharge, nose bleeding, nose congestion, nose pain, photophobia, tearing, throat pain, throat swelling, voice changes, others Respiratory: denies: cough, hemoptysis, orthopnea, SOB at rest, shortness of breath, SOB with excertion, stridor, wheezing, others Cardiovascular: denies: chest pain, dizzy spells, diaphoresis, Dyspnea on exertion, edema, irregular heart beat, left arm pain, lightheadedness, palpitations, PND, syncope, others Gastrointestinal: denies: abdomen distended, abdominal pain, blood streaked bowels, constipated, diarrhea, dysphagia, difficulty swallowing, hematemesis, melena, nausea, poor appetite, poor fluid intake, rectal bleeding, rectal pain, vomiting, others Genitourinary: reports: burning, dysuria; denies: flank pain, frequency, hematuria, incontinence, penile discharge, penile sore, pain, testicle pain, testicle swelling, urgency, others Neurological: denies: dizziness, fainting, headache, left sided numbness, left sided weakness, numbness, paresthesia, pre-existing deficit, right sided n umbness, right sided weakness, seizure, speech problems, tingling, tremors, weakness, others Musculoskeletal: denies: back pain, gout, joint pain, joint swelling, muscle pain, muscle stiffness, neck pain, others Integumetry: denies: bruises, change in color, change in hair/nails, dryness, laceration, lesions, lumps, rash, wounds, others Allergic/Immunocompromised: denies: Difficulty Healing, Frequent Infections, Hives, Itching, others Hematologic/Lymphatic: denies: anemia, blood clots, easy bleeding, easy bruising, swollen glands, others Endocrine: denies: excessive hunger, excessive sweating, excessive thirst, excessive urination, flushing, intolerance to cold, intolerance to heat, unexplained weight gain, unexplained weight loss, others Psychiatric: denies: anxiety, bipolar disorder, depression, hopeless, panic disorder, schizophrenia, sleepless, suicidal, others All Other Systems: Reviewed and Negative Physical Exam General Appearance: No Apparent Distress, Normal HEENT: Normal ENT Inspection, PERRL/EOMI, Pharynx Normal, TMs Normal Neck: Full Range of Motion, Non-Tender, Normal, Normal Inspection Respiratory: Chest Non-Tender, Lungs Clear, No Accessory Muscle Use, No Respiratory Distress, Normal Breath Sounds Cardiovascular: No Edema, No JVD, No Murmur, No Gallop, Normal Peripheral Pulses, Regular Rate/Rhythm Breast Exam: Deferred Gastrointestinal: No Organomegaly, Non Tender, No Pulsatile Mass, Normal Bowel Sounds, Soft Genitalia: Deferred Pelvic: Normal External Exam, Other (MAIN CATHETER INTACT, NO LEAKING. 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 Was a procedure done?: No Differential Diagnosis Kidney stone (Female): N/A Kidney stone (Male): Other Penile/Scrotal: N/A Urinary Problem (Male): Urethritis, Urolithiasis, UTI Urinary Problem (Female): N/A X-Ray, Labs, Meds, VS Vital Signs Date Time Temp Pulse Resp B/P (MAP) Pulse Ox O2 Delivery O2 Flow Rate FiO2 11/08/24 09:30 74 20 97 Room Air 11/08/24 09:30 98.0 74 20 150/62 (91) 97 98.0 11/08/24 09:19 98.0 74 20 150/62 (91) 97 Lab Test 11/08/24 09:00 Range/Units Urine Color Light-yellow Yellow Urine Clarity Clear Clear Urine pH 6.0 5.0-9.0 Urine Specific [place] 1.009 1.001-1.035 Urine Protein Trace H Negative Urine Ketones Negative Negative Urine Blood 1+ H Negative /uL Urine Nitrite 2+ H Negative Urine Bilirubin Negative Negative Urine Urobilinogen Normal Negative mg/dL Urine Leukocyte Esterase 3+ Negative /uL Urine RBC 11 0 - 3 /hpf Urine Microscopic WBC 32 H 0-3 /HPF Urine Squamous Epithelial Cells Few <5 /hpf Urine Bacteria Few H None Seen /hpf Urine Glucose Normal Normal mg/dL Current Medications Medications (Trade) Dose Ordered Sig/[place] Route Start Time Stop Time Status Last Admin Ceftriaxone Sodium (Rocephin) 1,000 mg ONCE ONCE IM 11/08/24 09:45 11/08/24 09:46 DC 11/08/24 09:47 X-Ray, Labs, Meds, VS Comment EXTERNAL MEDICAL RECORDS REVIEWED: [NONE] INDEPENDENT HISTORIANS: [NONE] SOCIAL DETERMINANTS OF HEALTH: [NONE] LABS ORDERED: UA REVIEWED AND INTERPRETED RESULTS: NITRITES 2+, LEUKO 3+ IMAGING ORDERED: NONE TREATMENTS ORDERED: ROCEPHIN 1 G IM PROCEDURES PERFORMED: NONE CRITICAL CARE TIME: NONE I HAVE DISCUSSED THE PATIENT WITH THE ATTENDING PHYSICIAN DR. PRATT AND SHE AGREES WITH THE PATIENT'S PLAN OF CARE AND DISPOSITION. BASED ON HISTORY OF PRESENT ILLNESS, AND PHYSICAL EXAM, PATIENT WILL BE DISCHARGED HOME. SHARED DECISION MAKING: PATIENT INSTRUCTED TO FOLLOW UP WITH PRIMARY CARE PROVIDER IN 1-2 DAYS FOR RE-EVALUATION OF SYMPTOMS. PATIENT VERBALIZES UNDERSTANDING TO RETURN TO ED FOR NEW OR WORSENING SYMPTOMS OR IF FOLLOW UP WITH PCP CANNOT BE OBTAINED. PATIENT FEELS COMFORTABLE GOING HOME AT THIS TIME. ALL QUESTIONS ADDRESSED AT TIME OF DISCHARGE. Time of 1ST Reevaluation: 10:05 Reevaluation 1ST: Improved Patient Education/Counseling: Diagnosis, Treatment, Need For Follow Up Family Education/Counseling: Diagnosis, Treatment, Need For Follow Up Medical Screening: No EMC Exist At This Time Departure 1 Departure Time of Disposition: 10:05 Impression: Primary Impression: Recurrent UTI (urinary tract infection) Disposition: 01 HOME / SELF CARE / HOMELESS Condition: Stable Additional Instructions: FOLLOW-UP WITH PCP IN 1 TO 2 DAYS. TAKE MEDICATIONS PRESCRIBED. RETURN TO ED FOR ANY NEW OR WORSENING SYMPTOMS. e-Prescriptions Sulfamethoxazole W/Trimethopri (Bactrim Ds Tablet) 1 Tab Tb 1 TAB PO BID for 10 Days, #20 TAB Prov: MARTINEZ HARO 11/08/24 Discharged With: Self Critical Care Note Critical Care Time?: No Stability Stability form required: No I personally scribed for MARTINEZ HARO ([email or web address]) on 11/08/24 at 09:48. Electronically submitted by Fei Estes ([email or web address]). MARTINEZ HARO Nov 08, 2024 09:48
[2024-11-08] MEDS ORDERED: BACDST PO (09:58)
== END 2024-11-08 10:02 | disposition home or self-care (01) ==
LOC: ER 09:01
DX: N39.0 Urinary tract infection, site not specified (principal); E11.9 Type 2 diabetes mellitus without complications; E78.5 Hyperlipidemia, unspecified; I10 Essential (primary) hypertension; Z88.0 Allergy status to penicillin; Z88.6 Allergy status to analgesic agent; Z88.8 Allergy status to other drugs, medicaments and biological substances; Z88.1 Allergy status to other antibiotic agents; Z79.899 Other long term (current) drug therapy; Z79.84 Long term (current) use of oral hypoglycemic drugs; Z98.890 Other specified postprocedural states
CPT/HCPCS: 81001; 96372; 99283; J0696

== ENCOUNTER 2024-11-12 08:34 | Inpatient (IN) | payer MEDICAID ==
[~2024-11-12] VITALS: Ht 157.5 cm; Wt 107.7 kg
[~2024-11-12 08:34] MED LIST changes: +BACDST PO
--- NOTE | 2024-11-12 08:50 | ED.PDOC ---
History of Present Illness Chief Complaint: Urinary Time Seen by MD: 08:44 Primary Care Provider: EMMY Allergies: Coded Allergies: Amoxicillin (Verified Allergy, Severe, 11/26/21) Acetaminophen (Verified Allergy, Unknown, 07/04/23) Ciprofloxacin (Verified Allergy, Unknown, 07/04/23) Ibuprofen (Verified Allergy, Unknown, 07/04/23) Penicillins (Verified Adverse Reaction, Intermediate, 05/07/23) Hot Flashes/Feels Hot during administration Home Meds Active Scripts Sulfamethoxazole W/Trimethopri (Bactrim Ds Tablet) 1 Tab Tb, 1 TAB PO BID for 10 Days, #20 TAB Prov:MARTINEZ HARO 11/08/24 Fosfomycin Tromethamine (Fosfomycin Tromethamine) 3 Gm Pow, 3 GM PO ONCE for 1 Day, #1 POW 0 Refills Prov:SUSIE LOVE MD 10/12/24 Nitrofurantoin (Macrodantin) 50 Mg Cap, 1 CAP PO BID for 10 Days, #20 CAP 0 Refills Prov:SUSIE LOVE MD 10/12/24 Sennosides-Docusate Sodium (Senna Plus 50-8.6 mg) 1 Cap Cap, 1 CAP PO BID, #30 CAP Prov:MARTINEZ HARO 08/09/23 Enalapril Maleate (Enalapril Maleate) 20 Mg Tab, 1 TAB PO DAILY, #30 TAB 5 Re fills Prov:THIEN BARKLEY MD 07/10/23 Reported Medications Aspirin (Aspirin Low Dose) 81 Mg Chw, 1 TAB PO DAILY, #90 TAB 3 Refills 11/11/23 Atorvastatin Calcium (ATORVASTATIN CALCIUM) 40 Mg Tab, 1 TAB PO DAILY, #30 TAB 5 Refills 11/11/23 Ezetimibe (Zetia) 10 Mg Tab, 1 TAB PO DAILY, #30 TAB 5 Refills 05/05/23 Metoprolol Tartrate (Metoprolol Tartrate) 50 Mg Tab, 50 MG PO HS for 30 Days, MG 05/05/23 Metformin Hydrochloride (Metformin Hcl) 500 Mg Tab, 1 TAB PO BID, #60 TAB 3 Refills 05/05/23 Ranolazine (Ranolazine ER) 1,000 Mg Tab, 500 MG PO TID, TAB 05/05/23 Past Medical History PAST MEDICAL HISTORY: DM, High Lipids, HTN, UTI'S Surgical History: CABG Family History Family History: Reviewed,noncontributory to illness Social History Smoker: Non-Smoker Alcohol: Denies ETOH Use Drugs: Denies Drug Use Lives In: Home Physical Exam General Appearance: Moderate Distress HEENT: Normal ENT Inspection, Pharynx Normal, TMs Normal Neck: Full Range of Motion, Non-Tender, Normal, Normal Inspection Respiratory: Chest Non-Tender, Lungs Clear, No Accessory Muscle Use, No Respiratory Distress, Normal Breath Sounds Cardiovascular: No Edema, No JVD, No Murmur, No Gallop, Normal Peripheral Pulses, Regular Rate/Rhythm Breast Exam: Deferred Gastrointestinal: No Organomegaly, Non Tender, No Pulsatile Mass, Normal Bowel Sounds, Soft Genitalia: Deferred Pelvic: Deferred Rectal: Deferred Extremities: No pedal edema Musculoskeletal : Apperance: Normal Neurologic: Alert Cerebellar Function: NOT DONE Reflexes: NOT DONE Skin: Dry, Normal Color, Warm Peripheral Pulses: 3+ Radial (R), 3+ Radial (L) Lymphatic: No Adenopathy Was a procedure done? Was a procedure done?: No Differential Dx Considerations may include: Urinary tract infection Electrolyte imbalance X-Ray, Labs, Meds, VS Vital Signs Date Time Temp Pulse Resp B/P (MAP) Pulse Ox O2 Delivery O2 Flow Rate FiO2 11/12/24 09:01 98.0 81 20 149/66 (93) 96 98.0 11/12/24 09:01 81 20 96 Room Air 11/12/24 08:45 98.0 81 20 149/86 (107) 96 Lab Test 11/12/24 09:34 11/12/24 08:44 Range/Units White Blood Count Pending Red Blood Count Pending Hemoglobin Pending Hematocrit Pending Mean Corpuscular Volume Pending Mean Corpuscular Hemoglobin Pending Mean Corpuscular Hemoglobin Concent Pending Red Cell Distribution Width Pending Platelet Count Pending Mean Platelet Volume Pending Neutrophils (%) (Auto) Pending Lymphocytes (%) (Auto) Pending Monocytes (%) (Auto) Pending Basophils (%) (Auto) Pending Neutrophils # (Auto) Pending Lymphocytes # (Auto) Pending Monocytes # (Auto) Pending Sodium Level Pending Potassium Level Pending Chloride Level Pending Carbon Dioxide Level Pending Anion Gap Pending Blood Urea Nitrogen Pending Creatinine Pending Glomerular Filtration Rate Calc Pending BUN/Creatinine Ratio Pending Serum Glucose Pending Calcium Level Pending POC Glucose 161 H 70-106 mg/dl Patient alert. Complaining of pain on urination. He does have a Patel catheter. He is here frequently. Vitals stable. Answering all questions. Currently on Bactrim. Possibly will need intravenous antibiotics. Reviewed his previous visit. Explained to the patient. Time of 1ST Reevaluation: 08:48 Reevaluation 1ST: Unchanged Patient Education/Counseling: Diagnosis, Treatment, Prognosis Family Education/Counseling: No Family Present Departure 1 Departure Time of Disposition: 08:49 Impression: Primary Impression: Sepsis due to urinary tract infection Additional Impression: Uncontrolled diabetes mellitus Qualified Codes: E13.65 - Other specified diabetes mellitus with hyperglycemia Disposition: ADMITTED INPATIENT Admit to: Med Surg Condition: Guarded Critical Care Note Critical Care Time?: No Stability Stability form required: No Heart Score Heart Score: Heart Score Response (Comments) Value History N/A 0 EKG N/A 0 Age N/A 0 Risk Factors N/A 0 Troponin N/A 0 Total 0 RAMBO AGUILAR MD Nov 12, 2024 08:50
[2024-11-12 09:52] LABS: Basophils # (auto) 0 10 ^3/uL (0-0.2); Basophils % (auto) 0.6 % (0.0-2.0); Eosinophils # (auto) 0.2 10 ^3/uL (0-0.8); Eosinophils % (auto) 3.6 % (0.0-7.0); Hematocrit 40.1 % (41.0-53.0); Hemoglobin 13.3 g/dL (13.5-17.5); Lymphocytes # (auto) 1.9 10 ^3/uL (0.4-5.4); Lymphocytes % (auto) 28.3 % (10.0-50.0); Mean Corpuscular Hemoglobin 30.3 pg (28.0-32.0); Mean Corpuscular Hgb Conc. 33.3 g/dL (32.0-36.0); Mean Corpuscular Volume 91.1 fL (80.0-100.0); Monocytes # (auto) 0.5 10 ^3/uL (0-1.3); Monocytes % (auto) 6.6 % (0.0-12.0); Neutrophils # (auto) 4.2 10 ^3/uL (1.6-8.6); Neutrophils % (auto) 60.9 % (37.0-80.0); Platelet Count (auto) 261 10^3/uL (140-450); Red Cell Distribution Width 16.1 % (11.8-14.3); White Blood Cell 6.9 10^3/uL (4.4-10.8)
[2024-11-12 09:55] LABS: Chloride 100 mmol/L (98-107)
[2024-11-12 09:56] LABS: Anion Gap 10 (5-15); Carbon Dioxide 21 mmol/L (20-31)
[2024-11-12 09:57] LABS: Calcium 9.7 mg/dL (8.7-10.4)
[2024-11-12 10:12] LABS: Blood Urea Nitrogen 9 mg/dL (9-23); Glucose 133 mg/dL (74-106); Sodium 131 mmol/L (136-145)
[2024-11-12] MEDS ORDERED: DEXTROSE (50%) 50ML SYRG IV PRN (13:00)
[2024-11-12] MEDS ORDERED: ONDANSETRON HCL 4 MG/2 ML VIAL IV PRN (13:00)
[2024-11-12] MEDS ORDERED: MORPHINE SULFATE INJ 2 MG/ml SYRG IV PRN (13:00)
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
--- NOTE | 2024-11-12 14:10 | DVH ---
CT CT AB PEL WO CON-NO ORAL OR IV INDICATION: abd pain EXAM DATE: 11/12/2024 01:46 PM COMPARISON: CT CT AB PEL WO CON-NO ORAL OR IV on DOS: 08/19/23, CT CT AB PEL WO CON-NO ORAL OR IV on D OS: 07/04/23, CT CT AB PEL WO CON-NO ORAL OR IV on DOS: 05/04/23 RADIATION DOSE: CTDIvol: 25 mGy, DLP: 1424 mGy*cm PROCEDURE: Helical CT images were obtained of the abdomen and pelvis without IV contrast Sagittal an d coronal reconstructions are provided. ORAL CONTRAST: None. ADDITIONAL IMAGES / REFORMATS: None All CT scans at this medical facility are performed using dose modulation techniques as appropriate t o a performed exam including the following: Automated exposure control was utilized; adjustment of th e MA and/or KV according to patient size; and use of iterative reconstruction technique. FINDINGS: LUNG BASE: Normal. LIVER: Normal. GALLBLADDER AND BILIARY TREE: No calcified gallstones. Normal caliber wall. No intra- or extrahepatic biliary ductal dilation. PANCREAS: Normal. SPLEEN: Atrophic and nearly absent spleen. BOWEL: Large colonic fecal burden. Normal appendix. ADRENALS: Normal. KIDNEYS AND URETER: 2.9 cm right upper pole cystic lesion vs lobular kidney contour, stable. BLADDER: Decompressed with a Patel. REPRODUCTIVE ORGANS: Normal. LYMPH NODES:No lymphadenopathy. PERITONEUM: No ascites or free air. No other fluid collection. VESSELS: Scattered atherosclerotic calcifications are noted. RETROPERITONEUM: Normal. ABDOMINAL WALL: Normal. BONES: Scattered osseous degenerative changes are noted. IMPRESSION: No acute intraabdominal abnormality. Large colonic fecal burden.
[2024-11-12 14:26] VITALS: PULSE 74; RESP 20; O2SAT 95
[2024-11-12] MEDS: ERTAPENEM SOD INJ 1 GM in SODIUM CHL 0.9% 50 ML IV ONE (15:15)
[2024-11-12 15:48] LABS: Lactic Acid w/Reflex 3.1 mmol/L (0.4-2.0)
[2024-11-12] MEDS: InsuLIN REG 1unit/0.01ml Soln (100units/ml) SC SCH (18:31)
[2024-11-12] MEDS: ACCU-CHEK COMFORT CURVE STRIP VI SCH (18:32)
[2024-11-12] MEDS: MEROPENEM 1GM IVPB 50 ML IV ONE (18:47)
[2024-11-12] MEDS: SODIUM CHLORIDE 0.9% 1,000 ML IV SCH (19:20)
[2024-11-12] MEDS: RANOLAZINE ER 500 MG TAB PO SCH (23:56)
[2024-11-12] MEDS: ATORVASTATIN 20 MG TAB PO SCH (23:56)
[2024-11-12] MEDS: METOPROLOL TARTRATE 50 MG TAB PO SCH (23:56)
[2024-11-12] MEDS: MEROPENEM 1GM IVPB 50 ML IV SCH (23:57)
[2024-11-13] MEDS: FOSFOMYCIN TROMETHAMINE 3 GM PO ONE (01:23)
[2024-11-13] MEDS: diphenhdrAMINE HCL 50 MG/1 ML VL IV ONE (01:49)
[2024-11-13 05:29] LABS: Basophils # (auto) 0 10 ^3/uL (0-0.2); Basophils % (auto) 0.3 % (0.0-2.0); Eosinophils # (auto) 0.1 10 ^3/uL (0-0.8); Eosinophils % (auto) 0.9 % (0.0-7.0); Hematocrit 40.3 % (41.0-53.0); Hemoglobin 13.5 g/dL (13.5-17.5); Lymphocytes # (auto) 3.6 10 ^3/uL (0.4-5.4); Lymphocytes % (auto) 32.6 % (10.0-50.0); Mean Corpuscular Hemoglobin 30.6 pg (28.0-32.0); Mean Corpuscular Hgb Conc. 33.6 g/dL (32.0-36.0); Mean Corpuscular Volume 91.1 fL (80.0-100.0); Monocytes # (auto) 0.4 10 ^3/uL (0-1.3); Monocytes % (auto) 3.9 % (0.0-12.0); Neutrophils # (auto) 6.9 10 ^3/uL (1.6-8.6); Neutrophils % (auto) 62.3 % (37.0-80.0); Nucleated Red Blood Cells % 0.1 %; Platelet Count (auto) 268 10^3/uL (140-450); Red Blood Cells 4.43 10^6/uL (4.5-5.90); White Blood Cell 11.1 10^3/uL (4.4-10.8)
[2024-11-13 05:56] LABS: Alanine Aminotransferase 22 U/L (7-40); Albumin 4.1 g/dL (3.2-4.8); Alkaline Phosphatase 106 U/L (46-116); Anion Gap 10 (5-15); Blood Urea Nitrogen 11 mg/dL (9-23); Calcium 9.8 mg/dL (8.7-10.4); Carbon Dioxide 21 mmol/L (20-31); Chloride 101 mmol/L (98-107)
[2024-11-13 05:57] LABS: Aspartate Aminotransferase 8 U/L (13-40); Bilirubin, Total 0.6 mg/dL (0.2-1.0); Glucose 108 mg/dL (74-106); Sodium 132 mmol/L (136-145); Total Protein 6.5 g/dL (5.7-8.2)
[2024-11-13 07:30] VITALS: PULSE 75; RESP 24; O2SAT 94
[2024-11-13] MEDS ORDERED: ERTAPENEM SOD INJ 1 GM in SODIUM CHL 0.9% 50 ML IV SCH (10:00)
[2024-11-13] MEDS: ASPirin 81 mg TAB PO SCH (11:02)
[2024-11-13] MEDS: ENALAPRIL MALEATE 10 MG TAB PO SCH (11:02)
[2024-11-13] MEDS: ENOXAPARIN SOD 40 MG/0.4 ML SYRINGE SC SCH (11:03)
[2024-11-13] MEDS: EZETIMIBE 10 MG TAB PO SCH (11:04)
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
[2024-11-13 15:30] VITALS: BP 113/82; PULSE 86; RESP 18; TEMP 97.8; O2SAT 95
[2024-11-13 16:48] VITALS: BP 113/53; PULSE 84; RESP 18; TEMP 98.9; O2SAT 96
[2024-11-13 20:00] VITALS: PULSE 94; RESP 19; O2SAT 96
[2024-11-13 21:00] VITALS: BP 116/68; PULSE 94; RESP 19; TEMP 97.9; O2SAT 96
[2024-11-13] MEDS: guaiFENesin 200 MG/10 ML UD PO PRN (21:34)
[2024-11-14] VITALS (8 sets, daily range): BP systolic 106–135; BP diastolic 45–66; PULSE 74–101; RESP 18–19; TEMP 97.8–98.4; O2SAT 94–100
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
[2024-11-14] MEDS: FUROSEMIDE 20 MG/2 ML VIAL IV ONE (14:20)
[2024-11-14] MEDS: metroNIDAZOLE 500MG/100ML 100 ML IV SCH (14:21)
[2024-11-14] MEDS: HYDROcodone-ACET 5/325MG TAB PO PRN (21:10)
[2024-11-15] VITALS (7 sets, daily range): BP systolic 97–154; BP diastolic 49–79; PULSE 64–96; RESP 17–19; TEMP 97.5–98; O2SAT 94–99
--- NOTE | 2024-11-15 15:20 | DVHPN2 ---
Eyes: No Pain, No Vision change, No Conjunctivae inflammation, No Eyelid inflammation, No Other, No Redness ENT: No Ear pain, No Ear discharge, No Nose pain, No Nose discharge, No Nose congestion, No Mouth pain, No Mouth swelling, No Throat pain, No Throat swelling, No Other Cardiovascular: No Chest Pain, No Palpitations, No Orthopnea, No Paroxysmal Noc. Dyspnea, No Edema, No Lt Headedness, No Other Respiratory: No Cough, No Dry, No Shortness of breath, No SOB with excertion, No Wheezing, No Hemoptysis, No Pleuritic Pain, No Sputum, No Other Gastrointestinal: No Nausea, No Vomiting; Abdominal Pain; No Diarrhea, No Constipation, No Melena, No Hematochezia, No Other Genitourinary: Dysuria, Retention Musculoskeletal: other (Wheelchair-bound) Skin: No Rash, No Lesions, No Jaundice, No Bruising, No Other Objective Vitals Vital Signs Date Time Temp Pulse Resp B/P (MAP) Pulse Ox O2 Delivery O2 Flow Rate FiO2 11/15/24 13:00 98.0 84 17 147/79 (101) 99 98.0 11/15/24 08:10 Room Air* 0 21 Intake/Output Intake and Output 11/15/24 07:00 Intake Total 1994 ml Output Total 5100 ml Balance -3106 ml Intake Oral 1694 ml IV Total 300 ml Output Urine Total 5100 ml Medications Current Medications Medications Dose Ordered Sig/Sumaya Route Start Time Stop Time Status Last Admin Dose Admin Diagnostic Test (Pha) 1 strip ACHS 11/12/24 17:00 11/15/24 11:16 1 STRIP Insulin Human Regular ACHS SC 11/12/24 17:00 11/15/24 06:02 2 UNITS Dextrose 50 ml UD PRN IV 11/12/24 13:00 Ertapenem 1 gm/ Sodium Chloride 50 ml @ 100 mls/hr DAILY IV 11/13/24 10:00 Cancel Acetaminophen/ Hydrocodone Bitart 1 tab Q4HP PRN PO 11/12/24 13:00 11/14/24 21:10 1 TAB Ondansetron HCl 4 mg Q4HP PRN IV 11/12/24 13:00 Enoxaparin Sodium 40 mg DAILY SC 11/13/24 10:00 11/15/24 09:16 40 MG Morphine Sulfate 2 mg Q4HPRN PRN IV 11/12/24 13:00 EZETIMIBE 10 mg DAILY PO 11/13/24 10:00 11/15/24 09:15 10 MG Metoprolol Tartrate 50 mg HS PO 11/12/24 22:00 11/14/24 21:09 50 MG Aspirin 81 mg DAILY PO 11/13/24 10:00 11/15/24 09:16 81 MG Atorvastatin Calcium 40 mg HS PO 11/12/24 22:00 11/14/24 21:09 40 MG Enalapril Maleate 20 mg DAILY PO 11/13/24 10:00 11/15/24 09:15 20 MG Ranolazine 500 mg TID PO 11/12/24 22:00 11/15/24 14:15 500 MG Meropenem 50 ml @ 17 mls/hr Q8HR IV 11/12/24 22:00 Hold 11/12/24 23:57 17 MLS/HR Guaifenesin 200 mg Q6HP PRN PO 11/13/24 21:15 11/15/24 11:20 200 MG Metronidazole 100 ml @ 100 mls/hr Q8HR IV 11/14/24 14:00 11/15/24 14:14 100 MLS/HR Laboratory Results Laboratory Tests 11/13/24 04:49 Microbiology Microbiology Date/Time Source Procedure Growth Status 11/12/24 08:53 Urine - Patel Port Urine Culture - Final Pseudomonas aeruginosa Enterococcus faecalis Complete ALMA QUINTANA MD Nov 15, 2024 15:20
[2024-11-15] MEDS ORDERED: AUG875T PO (15:57)
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
[2024-11-16] MEDS ORDERED: LEVO500T91 PO (10:04)
== END 2024-11-15 17:40 | disposition home or self-care (01) | DRG 466 ==
LOC: ER 08:34 → OVERFLOW 12:54 → CENTRAL 11-13 15:34
PROVIDERS: ATTEND Internal Medicine
DX: T83.518A Infection and inflammatory reaction due to other urinary catheter, initial encounter (principal); E87.1 Hypo-osmolality and hyponatremia; F44.4 Conversion disorder with motor symptom or deficit; E11.65 Type 2 diabetes mellitus with hyperglycemia; B95.2 Enterococcus as the cause of diseases classified elsewhere; B96.5 Pseudomonas (aeruginosa) (mallei) (pseudomallei) as the cause of diseases classified elsewhere; E78.5 Hyperlipidemia, unspecified; I10 Essential (primary) hypertension; Z88.1 Allergy status to other antibiotic agents; Z88.0 Allergy status to penicillin; Z88.6 Allergy status to analgesic agent; Z95.1 Presence of aortocoronary bypass graft; Z99.3 Dependence on wheelchair; Z83.3 Family history of diabetes mellitus; I25.2 Old myocardial infarction; N39.0 Urinary tract infection, site not specified
CPT/HCPCS: 36415; 74176; 80048; 80053; 82962; 83036; 83605; 85025; 87086; 87088; 87186; G0378; J1335; J1815; J2185; J3490

== ENCOUNTER 2024-11-22 08:03 | Emergency (ER) | payer MEDICAID, OTHER ==
[~2024-11-22] VITALS: Ht 157.5 cm; Wt 104.0 kg
[~2024-11-22 08:03] MED LIST changes: +LEVO500T91 PO
[2024-11-22 08:29] VITALS: BP 151/63; PULSE 73; RESP 20; TEMP 98; O2SAT 98
[2024-11-22 08:42] LABS: Basophils # (auto) 0.1 10 ^3/uL (0-0.2); Basophils % (auto) 0.5 % (0.0-2.0); Eosinophils # (auto) 0.1 10 ^3/uL (0-0.8); Eosinophils % (auto) 1.5 % (0.0-7.0); Hematocrit 40.8 % (41.0-53.0); Hemoglobin 13.8 g/dL (13.5-17.5); Lymphocytes # (auto) 2.7 10 ^3/uL (0.4-5.4); Lymphocytes % (auto) 29.1 % (10.0-50.0); Mean Corpuscular Hemoglobin 30.7 pg (28.0-32.0); Mean Corpuscular Hgb Conc. 33.9 g/dL (32.0-36.0); Mean Corpuscular Volume 90.7 fL (80.0-100.0); Monocytes # (auto) 0.6 10 ^3/uL (0-1.3); Monocytes % (auto) 5.9 % (0.0-12.0); Neutrophils # (auto) 5.9 10 ^3/uL (1.6-8.6); Nucleated Red Blood Cells % 0.1 %; Platelet Count (auto) 284 10^3/uL (140-450); White Blood Cell 9.4 10^3/uL (4.4-10.8)
[2024-11-22 08:52] LABS: Anion Gap 9 (5-15); Calcium 9.7 mg/dL (8.7-10.4); Carbon Dioxide 24 mmol/L (20-31); Chloride 100 mmol/L (98-107); Potassium 3.9 mmol/L (3.5-5.1)
[2024-11-22] MEDS: EPINEPHrine HCL 1 MG/1 ML AMP SC ONE (08:52)
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
[2024-11-22 08:58] LABS: BUN/Creatinine Ratio 22.4 (10.0-20.0); Blood Urea Nitrogen 13 mg/dL (9-23)
[2024-11-22 09:00] LABS: Urine Bacteria FEW /hpf (None Seen); Urine Blood Negative /uL (Negative); Urine Clarity Clear (Clear); Urine Color Yellow (Yellow); Urine Protein, UAD Negative (Negative); Urine Specific Gravity 1.009 (1.001-1.035); Urine Squamous Epithelial Cell FEW /hpf (<5); Urine Urobilinogen Normal (Negative); Urine WBC 7 /HPF (0-3)
[2024-11-22 09:02] LABS: Glucose 137 mg/dL (74-106); Sodium 133 mmol/L (136-145)
[2024-11-22] MEDS ORDERED: PRED20TA2 PO (09:23)
[2024-11-22] MEDS ORDERED: NITR-87 PO (09:23)
[2024-11-22] MEDS: cefTRIAXone SOD 1,000 MG VL IM ONE (09:34)
== END 2024-11-22 09:35 | disposition home or self-care (01) ==
LOC: MERGE 08:03 → ER 08:03
DX: N39.0 Urinary tract infection, site not specified (principal); T36.0X5A Adverse effect of penicillins, initial encounter; E11.9 Type 2 diabetes mellitus without complications; I10 Essential (primary) hypertension; E78.5 Hyperlipidemia, unspecified; G82.20 Paraplegia, unspecified; Z88.0 Allergy status to penicillin; Z88.1 Allergy status to other antibiotic agents; Y92.89 Other specified places as the place of occurrence of the external cause
CPT/HCPCS: 36415; 80048; 81001; 85025; 96372; 99284; J0171; J0696

== ENCOUNTER 2024-11-30 15:44 | Inpatient (IN) | payer MEDICAID ==
[~2024-11-30] VITALS: Ht 167.6 cm; Wt 90.3 kg
[~2024-11-30 15:44] MED LIST changes: +NITR-87 PO; +PRED20TA2 PO
--- NOTE | 2024-11-30 15:58 | ED.PDOC ---
History of Present Illness HPI Comments 59-year-old male came to the ER stating that he has been having shortness a breath feels like his throat is closing up since yesterday. He felt like this five days by after taking a course of amoxicillin. Came to the ER with similar symptoms five days ago for which I was given a steroid Benadryl sent home. He states that he has steroid ran out yesterday ever since then he has been feeling like his throat is closing. He his wheelchair bound. History of hypertension Patel catheter in place. He states that he does have rash on his chest and back. Denies any other symptoms. Time Seen by MD: 15:46 Primary Care Provider: EMMY Greer Notes: Nurses Notes, Medications, Allergies Allergies: Coded Allergies: Amoxicillin (Verified Allergy, Severe, 11/26/21) Ciprofloxacin (Verified Allergy, Unknown, 07/04/23) Ibuprofen (Verified Allergy, Unknown, 07/04/23) Levofloxacin (Verified Allergy, Unknown, 11/24/24) Meropenem (Verified Allergy, Unknown, 11/13/24) PER TIMING MACHINE OPERATOR REPORT PT GIVEN MEDICATIION AND HAD AN ALLERGIC REACTION Penicillins (Verified Adverse Reaction, Intermediate, 05/07/23) Hot Flashes/Feels Hot during administration Home Meds Active Scripts Prednisone (Prednisone) 20 Mg Tab, 60 MG PO DAILY, #21 MG Prov:MARTINEZ HARO 11/22/24 Nitrofurantoin Monohydrate Mac (Macrobid) 100 Mg Cap, 100 MG PO BID, #20 CAP Prov:MARTINEZ HARO 11/22/24 Levofloxacin Hemihydrate (LEVAQUIN 500 MG) 500 Mg Tab, 1 TAB PO DAILY, #10 TAB Prov:ALMA QUINTANA MD 11/16/24 Sulfamethoxazole W/Trimethopri (Bactrim Ds Tablet) 1 Tab Tb, 1 TAB PO BID for 10 Days, #20 TAB Prov:MARTINEZ HARO 11/08/24 Fosfomycin Tromethamine (Fosfomycin Tromethamine) 3 Gm Pow, 3 GM PO ONCE for 1 Day, #1 POW 0 Refills Prov:SUSIE LOVE MD 10/12/24 Nitrofurantoin (Macrodantin) 50 Mg Cap, 1 CAP PO BID for 10 Days, #20 CAP 0 Refills Prov:SUSIE LOVE MD 10/12/24 Sennosides-Docusate Sodium (Senna Plus 50-8.6 mg) 1 Cap Cap, 1 CAP PO BID, #30 CAP Prov:MARTINEZ HARO 08/09/23 Enalapril Maleate (Enalapril Maleate) 20 Mg Tab, 1 TAB PO DAILY, #30 TAB 5 Refills Prov:THIEN BARKLEY MD 07/10/23 Reported Medications Aspirin (Aspirin Low Dose) 81 Mg Chw, 1 TAB PO DAILY, #90 TAB 3 Refills 11/11/23 Atorvastatin Calcium (ATORVASTATIN CALCIUM) 40 Mg Tab, 1 TAB PO DAILY, #30 TAB 5 Refills 11/11/23 Ezetimibe (Zetia) 10 Mg Tab, 1 TAB PO DAILY, #30 TAB 5 Refills 05/05/23 Metoprolol Tartrate (Metoprolol Tartrate) 50 Mg Tab, 50 MG PO HS for 30 Days, MG 05/05/23 Metformin Hydrochloride (Metformin Hcl) 500 Mg Tab, 1 TAB PO BID, #60 TAB 3 Refills 05/05/23 Ranolazine (Ranolazine ER) 1,000 Mg Tab, 500 MG PO TID, TAB 05/05/23 Information Source: Patient Mode of Arrival: Wheelchair Severity: Moderate Timing: Days Duration: Since onset Past Medical History PAST MEDICAL HISTORY: DM, High Lipids, HTN, UTI'S Surgical History: CABG Family History Family History: Reviewed,noncontributory to illness Social History Smoker: Non-Smoker Alcohol: Denies ETOH Use Drugs: Denies Drug Use Lives In: Home Constitutional: denies: chills, diaphoresis, fatigue, fever, malaise, sweats, weakness, others EENTM: denies: blurred vision, double vision, ear bleeding, ear discharge, ear drainage, ear pain, ear ringing, eye pain, eye redness, hearing loss, mouth pain, mouth swelling, nasal discharge, nose bleeding, nose congestion, nose pain, photophobia, tearing, throat pain, throat swelling, voice changes, others Respiratory: reports: shortness of breath; denies: cough, hemoptysis, orthopn ea, SOB at rest, SOB with excertion, stridor, wheezing, others Cardiovascular: denies: chest pain, dizzy spells, diaphoresis, Dyspnea on exertion, edema, irregular heart beat, left arm pain, lightheadedness, palpitations, PND, syncope, others Gastrointestinal: denies: abdomen distended, abdominal pain, blood streaked bowels, constipated, diarrhea, dysphagia, difficulty swallowing, hematemesis, melena, nausea, poor appetite, poor fluid intake, rectal bleeding, rectal pain, vomiting, others Genitourinary: denies: burning, dysuria, flank pain, frequency, hematuria, incontinence, penile discharge, penile sore, pain, testicle pain, testicle swelling, urgency, others Neurological: denies: dizziness, fainting, headache, left sided numbness, left sided weakness, numbness, paresthesia, pre-existing deficit, right sided numbness, right sided weakness, seizure, speech problems, tingling, tremors, weakness, others Musculoskeletal: denies: back pain, gout, joint pain, joint swelling, muscle pain, muscle stiffness, neck pain, others Integumetry: denies: bruises, change in color, change in hair/nails, dryness, laceration, lesions, lumps, rash, wounds, others Allergic/Immunocompromised: denies: Difficulty Healing, Frequent Infections, Hives, Itching, others Hematologic/Lymphatic: denies: anemia, blood clots, easy bleeding, easy bruising, swollen glands, others Endocrine: denies: excessive hunger, excessive sweating, excessive thirst, excessive urination, flushing, intolerance to cold, intolerance to heat, unexplained weight gain, unexplained weight loss, others Psychiatric: denies: anxiety, bipolar disorder, depression, hopeless, panic disorder, schizophrenia, sleepless, suicidal, others Physical Exam General Appearance: Moderate Distress HEENT: Normal ENT Inspection, Pharynx Normal, TMs Normal Neck: Full Range of Motion, Non-Tender, Normal, Normal Inspection Respiratory: Other (Coarse breath sounds) Cardiovascular: No Edema, No JVD, No Murmur, No Gallop, Normal Peripheral Pulses, Regular Rate/Rhythm Breast Exam: Deferred Gastrointestinal: No Organomegaly, Non Tender, No Pulsatile Mass, Normal Bowel Sounds, Soft Genitalia: Deferred Pelvic: Deferred Rectal: Deferred Extremities: No pedal edema Musculoskeletal : Apperance: Normal Neurologic: Alert Cerebellar Function: NOT DONE Reflexes: NOT DONE Skin: Dry, Normal Color, Warm Peripheral Pulses: 3+ Radial (R), 3+ Radial (L) Lymphatic: No Adenopathy Was a procedure done? Was a procedure done?: No Differential Dx Considerations may include: Allergic reaction Hypertension urgency X-Ray, Labs, Meds, VS Patient alert. Came in because allergic reaction. Vitals stable. Answering all questions. Has a Patel catheter in place. Will need intravenous antibiotics. Establish intravenous access. Was given fluids. Reviewed his previous visit. Explained to the patient. Continue cardiac monitoring. Time of 1ST Reevaluation: 15:55 Reevaluation 1ST: Unchanged Patient Education/Counseling: Diagnosis, Treatment, Prognosis Family Education/Counseling: Need For Follow Up Departure 1 Departure Time of Disposition: 15:57 Impression: Primary Impression: Sepsis, unspecified organism Qualified Codes: A41.9 - Sepsis, unspecified organism Additional Impressions: Sepsis due to urinary tract infection Hypertensive urgency Disposition: 09 ADMITTED INPATIENT Admit to: Med Surg Condition: Guarded Critical Care Note Critical Care Time?: No Stability Stability form required: No Heart Score Heart Score: Heart Score Response (Comments) Value History N/A 0 EKG N/A 0 Age N/A 0 Risk Factors N/A 0 Troponin N/A 0 Total 0 RAMBO AGUILAR MD Nov 30, 2024 15:58
[2024-11-30 16:37] LABS: Basophils # (auto) 0.1 10 ^3/uL (0-0.2); Basophils % (auto) 0.4 % (0.0-2.0); Eosinophils # (auto) 0.1 10 ^3/uL (0-0.8); Eosinophils % (auto) 0.5 % (0.0-7.0); Hematocrit 44.2 % (41.0-53.0); Hemoglobin 14.5 g/dL (13.5-17.5); Lymphocytes # (auto) 6.8 10 ^3/uL (0.4-5.4); Lymphocytes % (auto) 42.7 % (10.0-50.0); Mean Corpuscular Hgb Conc. 32.8 g/dL (32.0-36.0); Mean Corpuscular Volume 91.6 fL (80.0-100.0); Monocytes # (auto) 0.7 10 ^3/uL (0-1.3); Monocytes % (auto) 4.5 % (0.0-12.0); Neutrophils # (auto) 8.4 10 ^3/uL (1.6-8.6); Neutrophils % (auto) 51.9 % (37.0-80.0); Nucleated Red Blood Cells % 0.1 %; Platelet Count (auto) 300 10^3/uL (140-450); Red Blood Cells 4.83 10^6/uL (4.5-5.90); Red Cell Distribution Width 16.4 % (11.8-14.3); White Blood Cell 16.1 10^3/uL (4.4-10.8)
[2024-11-30 16:47] LABS: Chloride 100 mmol/L (98-107); Potassium 4.2 mmol/L (3.5-5.1)
[2024-11-30 16:48] LABS: Anion Gap 10 (5-15); Calcium 9.9 mg/dL (8.7-10.4); Carbon Dioxide 22 mmol/L (20-31)
[2024-11-30 16:51] LABS: Sodium 132 mmol/L (136-145)
[2024-11-30 16:53] LABS: BUN/Creatinine Ratio 32.2 (10.0-20.0); Blood Urea Nitrogen 19 mg/dL (9-23)
[2024-11-30 16:55] LABS: Glucose 160 mg/dL (74-106)
--- NOTE | 2024-11-30 17:20 | DVH ---
CHEST RADIOGRAPH Indication: sob Technique: Single frontal view of the chest was obtained Comparison: XY CHEST PORTABLE on DOS: 08/19/23 FINDINGS: Lines and Tubes: None Lungs: No focal consolidation. Mild elevation of the left hemidiaphragm. Midline sternotomy wires ar e noted. Pleura: No effusion. No pneumothorax. Cardiomediastinal contours: Unremarkable Bones: No acute osseous abnormality. IMPRESSION: No acute cardiopulmonary disease.
[2024-11-30] MEDS ORDERED: ACETAMINOPHEN 325 MG TAB PO PRN (21:30)
[2024-11-30] MEDS ORDERED: MORPHINE SULFATE INJ 2 MG/ml SYRG IV PRN (21:30)
[2024-11-30] MEDS ORDERED: NITROGLYCERIN 0.4 MG SL TAB SL PRN (21:30)
[2024-11-30 23:43] LABS: INR 0.96 (0.9-1.15); Partial Thromboplastin Time 26.5 SEC (24.5-34.5); Prothrombin Time 10.2 sec (9.3-11.8)
[2024-11-30 23:46] LABS: Alanine Aminotransferase 26 U/L (7-40); Albumin 4.4 g/dL (3.2-4.8); Alkaline Phosphatase 107 U/L (46-116); Anion Gap 10 (5-15); BUN/Creatinine Ratio 39.3 (10.0-20.0); Blood Urea Nitrogen 22 mg/dL (9-23); Calcium 9.9 mg/dL (8.7-10.4); Carbon Dioxide 22 mmol/L (20-31); Chloride 100 mmol/L (98-107); Potassium 4.1 mmol/L (3.5-5.1)
[2024-11-30 23:47] LABS: Bilirubin, Total 0.3 mg/dL (0.2-1.0); Total Protein 6.6 g/dL (5.7-8.2)
[2024-11-30 23:48] LABS: Aspartate Aminotransferase 10 U/L (13-40); Blood Alcohol < 3.0 mg/dL (<10); Glucose 163 mg/dL (74-106); Sodium 132 mmol/L (136-145)
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
--- NOTE | 2024-12-01 01:05 | DVH ---
BILATERAL LOWER EXTREMITY VENOUS DOPPLER ULTRASOUND CLINICAL HISTORY: ddimer elevated TECHNIQUE: Grayscale ultrasound with compression, color Doppler flow imaging with pulsed duplex sonog mariza of the bilateral lower extremity deep venous system from the common femoral veins through the p opliteal veins is performed. COMPARISON: None FINDINGS: Right common femoral vein: Negative. Right greater saphenous vein: Negative. Right deep femoral vein: Negative. Right femoral vein: Negative. Right popliteal vein: Negative. Left common femoral vein: Negative. Left greater saphenous vein: Negative. Left deep femoral vein: Negative. Left femoral vein: Negative. Left popliteal vein: Negative. Other: Visualized bilateral popliteal trifurcation veins demonstrate color flow. IMPRESSION: No sonographic evidence of deep venous thrombosis in either lower extremity at this time. HS:Y
[2024-12-01 01:34] LABS: COVID19 ANTIGEN SOFIA FIA NEGATIVE (NEGATIVE); Rapid Influenza A Negative (Negative); Rapid Influenza B Negative (Negative)
[2024-12-01 04:08] VITALS: PULSE 76; RESP 21; O2SAT 96
[2024-12-01 04:16] LABS: Basophils # (auto) 0 10 ^3/uL (0-0.2); Basophils % (auto) 0.2 % (0.0-2.0); Eosinophils # (auto) 0.1 10 ^3/uL (0-0.8); Eosinophils % (auto) 0.6 % (0.0-7.0); Hematocrit 44.8 % (41.0-53.0); Hemoglobin 14.7 g/dL (13.5-17.5); Lymphocytes # (auto) 4.3 10 ^3/uL (0.4-5.4); Lymphocytes % (auto) 32.9 % (10.0-50.0); Mean Corpuscular Hgb Conc. 32.8 g/dL (32.0-36.0); Mean Corpuscular Volume 91.6 fL (80.0-100.0); Monocytes # (auto) 0.3 10 ^3/uL (0-1.3); Monocytes % (auto) 2.3 % (0.0-12.0); Neutrophils # (auto) 8.4 10 ^3/uL (1.6-8.6); Nucleated Red Blood Cells % 0.1 %; Platelet Count (auto) 318 10^3/uL (140-450); Red Blood Cells 4.89 10^6/uL (4.5-5.90); Red Cell Distribution Width 16.4 % (11.8-14.3); White Blood Cell 13.1 10^3/uL (4.4-10.8)
[2024-12-01 04:33] LABS: Alanine Aminotransferase 24 U/L (7-40); Albumin 4.4 g/dL (3.2-4.8); Alkaline Phosphatase 86 U/L (46-116); Anion Gap 9 (5-15); BUN/Creatinine Ratio 35.8 (10.0-20.0); Blood Urea Nitrogen 19 mg/dL (9-23); Calcium 9.8 mg/dL (8.7-10.4); Carbon Dioxide 25 mmol/L (20-31); Chloride 98 mmol/L (98-107); Potassium 4.4 mmol/L (3.5-5.1)
[2024-12-01 04:34] LABS: Bilirubin, Total 0.5 mg/dL (0.2-1.0); Total Protein 6.5 g/dL (5.7-8.2)
[2024-12-01] MEDS: SODIUM CHLOR 0.9% PF (SALINE LOCK) 10ML VIAL/SYR IV SCH (04:35)
[2024-12-01] MEDS: SODIUM CHLORIDE 0.9% 1,000 ML IV ONE ×2 (04:36→04:41)
[2024-12-01 04:40] LABS: Aspartate Aminotransferase < 8 U/L (13-40); Glucose 134 mg/dL (74-106); Sodium 132 mmol/L (136-145)
[2024-12-01] MEDS: SULFAMETH-TRIMETH 80/16MG-ML 15 ML in D5W 5% 500 ML IV ONE (04:40)
[2024-12-01] MEDS: cefTRIAXone 1GM/50ML D5W 50 ML IV ONE (04:41)
[2024-12-01] MEDS: diphenhdrAMINE HCL 50 MG/1 ML VL IV ONE (04:41)
[2024-12-01] MEDS: methylPREDNISolone SOD SUCC 125 MG/2 ML VL IV ONE (04:41)
[2024-12-01 05:31] LABS: Urine Bacteria FEW /hpf (None Seen); Urine Blood 2+ /uL (Negative); Urine Clarity Clear (Clear); Urine Color Yellow (Yellow); Urine Protein, UAD TRACE (Negative); Urine Specific Gravity 1.019 (1.001-1.035); Urine Squamous Epithelial Cell FEW /hpf (<5); Urine Urobilinogen Normal (Negative); Urine WBC 66 /HPF (0-3)
[2024-12-01 06:20] LABS: Amphetamine Screen, Urine Neg (NEGATIVE); Barbiturate Scree,Urine Neg (NEGATIVE); Benzodiazephine Screen, Urine Neg (NEGATIVE); Cocaine Screen, Urine Neg (NEGATIVE); Opiate Scree,Urine Neg (NEGATIVE); Phencyclidine Screen, Urine Neg (NEGATIVE)
[2024-12-01 06:29] LABS: Cannabinoid Screen, Urine Neg (NEGATIVE)
[2024-12-01 08:00] VITALS: PULSE 82; RESP 16; O2SAT 95
[2024-12-01] MEDS: PANTOPRAZOLE 40 MG/10 ML VIAL INJ IV SCH (10:44)
[2024-12-01] MEDS: ENOXAPARIN SOD 40 MG/0.4 ML SYRINGE SC SCH (10:44)
[2024-12-01 12:00] VITALS: TEMP 98.6
[2024-12-01] MEDS ORDERED: PRED20TA2 PO (13:51)
[2024-12-01] MEDS ORDERED: DIPH25CA51 PO (13:52)
--- NOTE | 2024-12-01 13:55 | DVHDSRES ---
Discharge Summary Date of Admission Resident Creating Document: MOIRA GRACE RESIDENT Nov 30, 2024 at 21:24 Date of Discharge: Dec 01, 2024 Labs/Diagnostic Data: Laboratory Results Test 12/01/24 05:15 12/01/24 04:52 12/01/24 03:52 12/01/24 00:00 Urine Color Yellow (Yellow) Urine Clarity Clear (Clear) Urine pH 6.0 (5.0-9.0) Urine Specific [place] 1.019 (1.001-1.035) Urine Protein Trace (Negative) Urine Ketones Negative (Negative) Urine Blood 2+ /uL (Negative) Urine Nitrite 2+ (Negative) Urine Bilirubin Negative (Negative) Urine Urobilinogen Normal mg/dL (Negative) Urine Leukocyte Esterase 3+ /uL (Negative) Urine RBC 90 /hpf (0 - 3) Urine Microscopic WBC 66 /HPF (0-3) Urine Squamous Epithelial Cells Few /hpf (<5) Urine Bacteria Few /hpf (None Seen) Urine Glucose Trace mg/dL (Normal) Urine Opiates Screen Neg (NEGATIVE) Urine Fentanyl Screen Neg (NEGATIVE) Urine Barbiturates Screen Neg (NEGATIVE) Urine Phencyclidine Screen Neg (NEGATIVE) Urine Amphetamines Screen Neg (NEGATIVE) Urine Benzodiazepines Screen Neg (NEGATIVE) Urine Cocaine Screen Neg (NEGATIVE) Urine Cannabinoids Screen Neg (NEGATIVE) POC Glucose 123 mg/dl (70-106) White Blood Count 13.1 10^3/uL (4.4-10.8) Red Blood Count 4.89 10^6/uL (4.5-5.90) Hemoglobin 14.7 g/dL (13.5-17.5) Hematocrit 44.8 % (41.0-53.0) Mean Corpuscular Volume 91.6 fL (80.0-100.0) Mean Corpuscular Hemoglobin 30.0 pg (28.0-32.0) Mean Corpuscular Hemoglobin Concent 32.8 g/dL (32.0-36.0) Red Cell Distribution Width 16.4 % (11.8-14.3) Platelet Count 318 10^3/uL (140-450) Mean Platelet Volume 9.5 fL (6.9-10.8) Neutrophils (%) (Auto) 64.0 % (37.0-80.0) Lymphocytes (%) (Auto) 32.9 % (10.0-50.0) Monocytes (%) (Auto) 2.3 % (0.0-12.0) Eosinophils (%) (Auto) 0.6 % (0.0-7.0) Basophils (%) (Auto) 0.2 % (0.0-2.0) Neutrophils # (Auto) 8.4 10 ^3/uL (1.6-8.6) Lymphocytes # (Auto) 4.3 10 ^3/uL (0.4-5.4) Monocytes # (Auto) 0.3 10 ^3/uL (0-1.3) Eosinophils # (Auto) 0.1 10 ^3/uL (0-0.8) Basophils # (Auto) 0 10 ^3/uL (0-0.2) Nucleated Red Blood Cells 0.1 % Sodium Level 132 mmol/L (136-145) Potassium Level 4.4 mmol/L (3.5-5.1) Chloride Level 98 mmol/L (98-107) Carbon Dioxide Level 25 mmol/L (20-31) Anion Gap 9 (5-15) Blood Urea Nitrogen 19 mg/dL (9-23) Creatinine 0.53 mg/dL (0.700-1.30) Glomerular Filtration Rate Calc 116 mL/min (>90) BUN/Creatinine Ratio 35.8 (10.0-20.0) Serum Glucose 134 mg/dL (74-106) Calcium Level 9.8 mg/dL (8.7-10.4) Total Bilirubin 0.5 mg/dL (0.2-1.0) Aspartate Amino Transferase (AST) < 8 U/L (13-40) Alanine Aminotransferase (ALT) 24 U/L (7-40) Alkaline Phosphatase 86 U/L (46-116) Total Protein 6.5 g/dL (5.7-8.2) Albumin 4.4 g/dL (3.2-4.8) Influenza Type A Antigen Negative (Negative) Influenza Type B Antigen Negative (Negative) SARS-CoV-2 Antigen (Rapid) Negative (NEGATIVE) Test 11/30/24 22:58 Prothrombin Time 10.2 sec (9.3-11.8) Prothrombin Time INR 0.96 (0.9-1.15) Activated Partial Thromboplast Time 26.5 SEC (24.5-34.5) D-Dimer, Quantitative 15.64 mg/L FEU (0.0-0.49) Magnesium Level 2.0 mg/dL (1.6-2.6) B-Type Natriuretic Peptide 9.36 pg/mL (0-100) Thyroid Stimulating Hormone (TSH) 2.90 uIU/mL (0.55-4.78) Plasma/Serum Blood Alcohol < 3.0 mg/dL (<10) Other Laboratory Tests 12/01/24 03:52 Brief Hx & Hospital Course: BRISEYDA [id number] male with PMH of CABG, HTN, HLD, type 2 DM, CHF presented to the ED with the chief complaints of dry mouth, his throat feeling like closing since yesterday. The patient reports that two weeks ago, he was discharged from this facility after being treated for a urinary tract infection (UTI) and was prescribed amoxicillin. After five days of taking amoxicillin, the patient developed a skin rash with itching, swelling of the upper lip, and respiratory problems. He visited the ED and was given Benadryl and prednisolone, but his symptoms did not resolve, prompting his return to the ED. On assessment, the patient denies fever, nausea, vomiting, diarrhea, palpitations, and other acute associated symptoms. During the hospitalization, Patient reports that he took amoxicillin for 5 days after discharge, discharge day 2 was 11/15. He began experiencing throat swelling, lip swelling, maculopapular rash and itchiness for which he took some prednisone in his symptoms resolved. His symptoms reappeared as soon as he discontinued prednisone, even without amoxicillin or any antibiotic, which is indicative of some seasonal versus food-induced allergic reaction. He received 1 dose of IV methylprednisolone 125 mg and Benadryl in the ER after which his symptoms resolved. He was started on ceftriaxone 1 g IV daily, patient received 2 doses and his urine became clear, patient denied any urinary symptoms. He usually feels abdominal burning when he has a UTI. He was taking Macrobid for the last 5 days and was supposed to continue for 10 days. WBC trending down to 13. Blood pressure is controlled. It is unlikely that the patient had reaction to ceftriaxone or meropenem previously as he responded in his UTI resolved according to charts. Questionable reaction to Levaquin and amoxicillin. Patient is advised to maintain a log of his symptoms and his triggers including food/environment. 12/01/2024-patient is hemodynamically stable, clinically stable, no active complaint in his therefore being discharged home with the recommendation to continue Macrobid for the next 5 days, Benadryl p.r.n. and prednisolone daily for the next 3 days. Discharge instruction: Follow up with the discharge clinic appointment within 7 days Follow up with primary care physician within 7 days with a repeat CBC Tablet nitrofurantoin 100 mg twice daily for the next 5 days Prednisone 20 mg daily for the next 3 days Discharge diagnosis Type 1 hypersensitivity reaction - likely food induced/seasonal allergy Sepsis likely secondary to Acute cystitis Complicated UTI Hypertensive urgency Dyslipidemia Wheelchair-bound Obesity Operations or Procedures ORDERING PHYSICIAN: RAMBO AGUILAR MD PROCEDURE(s): CXRP - CHEST PORTABLE REASON: sob ORDER NUMBER(s): [id number], ACCESSION NUMBER(s): [id number] CHEST RADIOGRAPH Indication: sob Technique: Single frontal view of the chest was obtained Comparison: XY CHEST PORTABLE on DOS: 08/19/23 FINDINGS: Lines and Tubes: None Lungs: No focal consolidation. Mild elevation of the left hemidiaphragm. Midline sternotomy wires are noted. Pleura: No effusion. No pneumothorax. Cardiomediastinal contours: Unremarkable Bones: No acute osseous abnormality. IMPRESSION: No acute cardiopulmonary disease. ATED BY: SARAH CUEVAS DO DICTATED DATE/TIME: 11/30/241717 SIGNED BY: SARAH CUEVAS DO SIGNED DATE/TIME: 11/30/241717 CC: BILATERAL LOWER EXTREMITY VENOUS DOPPLER ULTRASOUND CLINICAL HISTORY: ddimer elevated TECHNIQUE: Grayscale ultrasound with compression, color Doppler flow imaging with pulsed duplex sonography of the bilateral lower extremity deep venous system from the common femoral veins through the popliteal veins is performed. COMPARISON: None FINDINGS: Right common femoral vein: Negative. Right greater saphenous vein: Negative. Right deep femoral vein: Negative. Right femoral vein: Negative. Right popliteal vein: Negative. Left common femoral vein: Negative. Left greater saphenous vein: Negative. Left deep femoral vein: Negative. Left femoral vein: Negative. Left popliteal vein: Negative. Other: Visualized bilateral popliteal trifurcation veins demonstrate color flow. IMPRESSION: No sonographic evidence of deep venous thrombosis in either lower extremity at this time. HS:Y ATED BY: CANDACE CHURCHILL MD DICTATED DATE/TIME: 12/01/24102 SIGNED BY: CANDACE CHURCHILL MD SIGNED DATE/TIME: 12/01/24102 CC: Condition at Discharge: Stable Final Diagnosis/Problems List Type 1 hypersensitivity reaction - likely food induced Sepsis likely secondary to Acute cystitis Recurrent Complicated UTI Hypertensive urgency Dyslipidemia Wheelchair-bound Obesity Discharge Disposition: Home Discharge Instruct/Medications Diet: Regular, Cardiac 2g Na,low cholest Activity: No Restrictions, As Tolerated Follow Up/Referral: Follow up with the discharge clinic appointment within 7 days Follow up with primary care physician within 7 days with a repeat CBC Medications: Tablet nitrofurantoin 100 mg twice daily for the next 5 days Prednisone 20 mg daily for the next 3 days Discharge Statement: "Patient was advised to return to the ER or call 911 if any headaches, dizziness, shortness of breath, chest pain, abdominal pain, bleeding, fevers, or worsening of medical condition. Patient was counseled about treatment plan, medications, possible side effects, patientverbalized understanding. All questions were answered to the best of my ability. This discharge took greater then 30 minutes in planning, reviewing documentation, counseling the patient, and discussing with other team members." ASSESSMENT ASSESSMENT Assessment Type 1 hypersensitivity reaction - likely food induced Sepsis likely secondary to Acute cystitis Complicated UTI Hypertensive urgency Dyslipidemia Wheelchair-bound Obesity MOIRA GRACE RESIDENT Dec 01, 2024 13:55
[2024-12-01 15:00] VITALS: BP 118/55; PULSE 79; RESP 17; O2SAT 95
[2024-12-01] MEDS ORDERED: cefTRIAXone 1GM/50ML D5W 50 ML IV SCH (21:00)
== END 2024-12-01 15:08 | disposition home or self-care (01) | DRG 720 ==
LOC: ER 15:44 → OVERFLOW 21:24
PROVIDERS: ADMIT Student in an Organized Health Care Education/Training Program; ATTEND Student in an Organized Health Care Education/Training Program
DX: A41.9 Sepsis, unspecified organism (principal); G82.20 Paraplegia, unspecified; I50.9 Heart failure, unspecified; I11.0 Hypertensive heart disease with heart failure; Z20.822 Contact with and (suspected) exposure to COVID-19; I16.0 Hypertensive urgency; E11.9 Type 2 diabetes mellitus without complications; N30.00 Acute cystitis without hematuria; E78.5 Hyperlipidemia, unspecified; I25.10 Atherosclerotic heart disease of native coronary artery without angina pectoris; T50.995A Adverse effect of other drugs, medicaments and biological substances, initial encounter; T36.0X5A Adverse effect of penicillins, initial encounter; E66.9 Obesity, unspecified; T78.1XXA Other adverse food reactions, not elsewhere classified, initial encounter; Z68.32 Body mass index [BMI] 32.0-32.9, adult; Z99.3 Dependence on wheelchair; Z95.1 Presence of aortocoronary bypass graft; Z88.0 Allergy status to penicillin; Y92.89 Other specified places as the place of occurrence of the external cause; Z88.8 Allergy status to other drugs, medicaments and biological substances; Z79.84 Long term (current) use of oral hypoglycemic drugs; Z79.899 Other long term (current) drug therapy
CPT/HCPCS: 36415; 71045; 80048; 80053; 80307; 80320; 81001; 82962; 83735; 83880; 84443; 85025; 85379; 85610; 85730; 87086; 87088; 87186; 87426; 87804; 93970; G0378; J2470; J3490

== ENCOUNTER 2024-12-10 07:45 | Inpatient (IN) | payer MEDICAID ==
[~2024-12-10] VITALS: Ht 157.5 cm; Wt 108.4 kg
[~2024-12-10 07:45] MED LIST changes: -BACDST PO; +DIPH25CA51 PO; -FOSF3POW PO; -LEVO500T91 PO
--- NOTE | 2024-12-10 08:03 | ED.PDOC ---
General HPI Comments 59 year old male presents to the ED with chief complaint of flank pain. Patient reports that he has been experiencing bilateral flank burning with associated dysuria for the past few days. Patient relays that he currently has a Myers catheter in place. Patient states he is also experiencing unrelated symptoms of substernal chest pain for the past 2 days, having similar pain in the past. Patient denies any abdominal pain, hematuria, fever, chills, or N/V/D. Chief Complaint: Urinary Time Seen by MD: 08:01 Primary Care Provider: none Reviewed notes: Nurses Notes, Medications, Allergies Allergies: Coded Allergies: Amoxicillin (Verified Allergy, Severe, 11/26/21) Acetaminophen (Verified Allergy, Unknown, 12/10/24) Ciprofloxacin (Verified Allergy, Unknown, 07/04/23) Ibuprofen (Verified Allergy, Unknown, 07/04/23) Levofloxacin (Verified Allergy, Unknown, 11/24/24) Meropenem (Verified Allergy, Unknown, 11/13/24) PER BRISKET PULLER REPORT PT GIVEN MEDICATIION AND HAD AN ALLERGIC REACTION Penicillins (Verified Adverse Reaction, Intermediate, 05/07/23) Hot Flashes/Feels Hot during administration Home Meds Active Scripts Diphenhydramine Hcl (BENADRYL CAPSULE) 25 Mg Cp, 25 MG PO DAILY PRN for 30 Days, #30 CAP 0 Refills Prov:MOIRA GRACE RESIDENT 12/01/24 Sennosides-Docusate Sodium (Senna Plus 50-8.6 mg) 1 Cap Cap, 1 CAP PO BID, #30 CAP Prov:MARTINEZ HARO 08/09/23 Enalapril Maleate (Enalapril Maleate) 20 Mg Tab, 1 TAB PO DAILY, #30 TAB 5 Refills Prov:THIEN BARKLEY MD 07/10/23 Reported Medications Aspirin (Aspirin Low Dose) 81 Mg Chw, 1 TAB PO DAILY, #90 TAB 3 Refills 11/11/23 Atorvastatin Calcium (ATORVASTATIN CALCIUM) 40 Mg Tab, 1 TAB PO DAILY, #30 TAB 5 Refills 11/11/23 Ezetimibe (Zetia) 10 Mg Tab, 1 TAB PO DAILY, #30 TAB 5 Refills 05/05/23 Metoprolol Tartrate (Metoprolol Tartrate) 50 Mg Tab, 50 MG PO HS for 30 Days, MG 05/05/23 Metformin Hydrochloride (Metformin Hcl) 500 Mg Tab, 1 TAB PO BID, #60 TAB 3 Refills 05/05/23 Ranolazine (Ranolazine ER) 1,000 Mg Tab, 500 MG PO TID, TAB 05/05/23 Discontinued Scripts Prednisone (Prednisone) 20 Mg Tab, 20 MG PO DAILY for 3 Days, #3 MG 0 Refills Prov:MOIRA GRACE RESIDENT 12/01/24 Nitrofurantoin Monohydrate Mac (Macrobid) 100 Mg Cap, 100 MG PO BID, #20 CAP Prov:MARTINEZ HARO 11/22/24 Nitrofurantoin (Macrodantin) 50 Mg Cap, 1 CAP PO BID for 10 Days, #20 CAP 0 Refills Prov:SUSIE LOVE MD 10/12/24 Information Source: Patient, Relative Mode of Arrival: Wheelchair Severity: Moderate Inability to void: None Timing: Days Duration: Since onset Prehospital treatment: None Onset: Spontaneous Symptoms: Dysuria History of: UTI, Chronic indwelling myers Location: (R) Flank, (L)Flank Penile discharge: None Modifying factors: None associated signs and symptoms: Flank Pain, Dysuria Past Medical History PAST MEDICAL HISTORY: DM, High Lipids, HTN, NV, UTI'S Surgical History: CABG Family History Family History: Reviewed,noncontributory to illness Social History Smoker: Non-Smoker Alcohol: Denies ETOH Use Drugs: Denies Drug Use Lives In: Home Constitutional: denies: chills, diaphoresis, fatigue, fever, malaise, sweats, weakness, others EENTM: denies: blurred vision, double vision, ear bleeding, ear discharge, ear drainage, ear pain, ear ringing, eye pain, eye redness, hearing loss, mouth pain, mouth swelling, nasal discharge, nose bleeding, nose congestion, nose pain, photophobia, tearing, throat pain, throat swelling, voice changes, others Respiratory: denies: cough, hemoptysis, orthopnea, SOB at rest, shortness of breath, SOB with excertion, stridor, wheezing, others Cardiovascular: reports: chest pain; denies: dizzy spells, diaphoresis, Dyspnea on exertion, edema, irregular heart beat, left arm pain, lightheadedness, palpitations, PND, syncope, others Gastrointestinal: denies: abdomen distended, abdominal pain, blood streaked bowels, constipated, diarrhea, dysphagia, difficulty swallowing, hematemesis, melena, nausea, poor appetite, poor fluid intake, rectal bleeding, rectal pain, vomiting, others Genitourinary: reports: burning, dysuria, flank pain; denies: frequency, hematuria, incontinence, penile discharge, penile sore, pain, testicle pain, testicle swelling, urgency, others Neurological: denies: dizziness, fainting, headache, left sided numbness, left sided weakness, numbness, paresthesia, pre-existing deficit, right sided numbness, right sided weakness, seizure, speech problems, tingling, tremors, weakness, others Musculoskeletal: denies: back pain, gout, joint pain, joint swelling, muscle pain, muscle stiffness, neck pain, others Integumetry: denies: bruises, change in color, change in hair/nails, dryness, laceration, lesions, lumps, rash, wounds, others Allergic/Immunocompromised: denies: Difficulty Healing, Frequent Infections, Hives, Itching, others Hematologic/Lymphatic: denies: anemia, blood clots, easy bleeding, easy bruising, swollen glands, others Endocrine: denies: excessive hunger, excessive sweating, excessive thirst, excessive urination, flushing, intolerance to cold, intolerance to heat, unexplained weight gain, unexplained weight loss, others Psychiatric: denies: anxiety, bipolar disorder, depression, hopeless, panic disorder, schizophrenia, sleepless, suicidal, others All Other Systems: Reviewed and Negative Physical Exam General Appearance: Moderate Distress, Normal HEENT: Normal ENT Inspection, PERRL/EOMI Neck: Full Range of Motion, Non-Tender, Normal, Normal Inspection Respiratory: Chest Non-Tender, Lungs Clear, No Accessory Muscle Use, No Respiratory Distress, Normal Breath Sounds, Pleural Rub Cardiovascular: No Edema, No JVD, No Murmur, No Gallop, Normal Peripheral Pulses, Regular Rate/Rhythm Breast Exam: Deferred Gastrointestinal: No Organomegaly, Non Tender, No Pulsatile Mass, Normal Bowel Sounds, Soft Genitalia: Deferred Pelvic: Deferred Rectal: Deferred Extremities: No calf tenderness, Normal capillary refill, Non-tender, No pedal edema Musculoskeletal : Apperance: Normal Neurologic: Alert, Motor Weakness, Normal Affect Cerebellar Function: NOT DONE Reflexes: NOT DONE Skin: Dry, Normal Color, Warm Peripheral Pulses: 3+ Radial (R), 3+ Radial (L) Lymphatic: No Adenopathy Was a procedure done? Was a procedure done?: No Differential Diagnosis Kidney stone (Female): Musculoskeletal pain, Urinary obstruction, Urolithiasis X-Ray, Labs, Meds, VS Vital Signs Date Time Temp Pulse Resp B/P (MAP) Pulse Ox O2 Delivery O2 Flow Rate FiO2 12/10/24 08:18 66 17 98 Room Air* 0 21 12/10/24 08:08 97.9 64 18 127/55 (79) 98 97.9 12/10/24 08:08 64 17 98 Room Air 12/10/24 07:59 58 12/10/24 07:57 97.9 62 18 115/73 (87) 97 Lab Test 12/10/24 08:14 12/10/24 08:00 Range/Units White Blood Count 9.5 4.4-10.8 10^3/uL Red Blood Count 4.57 4.5-5.90 10^6/uL Hemoglobin 13.6 13.5-17.5 g/dL Hematocrit 41.8 41.0-53.0 % Mean Corpuscular Volume 91.3 80.0-100.0 fL Mean Corpuscular Hemoglobin 29.8 28.0-32.0 pg Mean Corpuscular Hemoglobin Concent 32.6 32.0-36.0 g/dL Red Cell Distribution Width 16.2 H 11.8-14.3 % Platelet Count 272 140-450 10^3/uL Mean Platelet Volume 9.2 6.9-10.8 fL Neutrophils (%) (Auto) 64.9 37.0-80.0 % Lymphocytes (%) (Auto) 25.3 10.0-50.0 % Monocytes (%) (Auto) 6.6 0.0-12.0 % Eosinophils (%) (Auto) 2.7 0.0-7.0 % Basophils (%) (Auto) 0.5 0.0-2.0 % Neutrophils # (Auto) 6.2 1.6-8.6 10 ^3/uL Lymphocytes # (Auto) 2.4 0.4-5.4 10 ^3/uL Monocytes # (Auto) 0.6 0-1.3 10 ^3/uL Eosinophils # (Auto) 0.3 0-0.8 10 ^3/uL Basophils # (Auto) 0 0-0.2 10 ^3/uL Nucleated Red Blood Cells 0.0 % Sodium Level 131 L 136-145 mmol/L Potassium Level 3.9 3.5-5.1 mmol/L Chloride Level 100 98-107 mmol/L Carbon Dioxide Level 20 20-31 mmol/L Anion Gap 11 5-15 Blood Urea Nitrogen 9 9-23 mg/dL Creatinine 0.59 L 0.700-1.30 mg/dL Glomerular Filtration Rate Calc 112 >90 mL/min BUN/Creatinine Ratio 15.3 10.0-20.0 Serum Glucose 171 H 74-106 mg/dL Calcium Level 9.6 8.7-10.4 mg/dL Troponin I High Sensitivity < 3 L </=54 ng/L Urine Color Light-yellow Yellow Urine Clarity Clear Clear Urine pH 6.0 5.0-9.0 Urine Specific [place] 1.016 1.001-1.035 Urine Protein Trace H Negative Urine Ketones Negative Negative Urine Blood Negative Negative /uL Urine Nitrite 2+ H Negative Urine Bilirubin Negative Negative Urine Urobilinogen Normal Negative mg/dL Urine Leukocyte Esterase 2+ Negative /uL Urine RBC 3 0 - 3 /hpf Urine Microscopic WBC 33 H 0-3 /HPF Urine Squamous Epithelial Cells Few <5 /hpf Urine Bacteria None seen None Seen /hpf Urine Glucose Normal Normal mg/dL Patient alert. Complaining of chest pain. Has a Myers catheter in place. Vitals stable. He is on a wheelchair. Chronic condition. Urinalysis shows UTI. Reviewed his previous visit. Explained to the patient. Continue monitoring. Time of 1ST Reevaluation: 09:01 Reevaluation 1ST: Unchanged Patient Education/Counseling: Diagnosis, Treatment Family Education/Counseling: Diagnosis, Treatment Departure 1 Departure Time of Disposition: 10:50 Impression: Primary Impression: Sepsis, unspecified organism Qualified Codes: A41.9 - Sepsis, unspecified organism Additional Impressions: Chest pain of unknown etiology Uncontrolled diabetes mellitus Qualified Codes: E13.65 - Other specified diabetes mellitus with hyperglycemia Urinary tract infection Qualified Codes: N39.0 - Urinary tract infection, site not specified Disposition: ADMITTED INPATIENT Admit to: Med Surg Condition: Guarded Critical Care Note Critical Care Time?: Yes (45 min-critical care time only) Critical care comment: Continues to have chest pain Stability Stability form required: No Heart Score Heart Score: Heart Score Response (Comments) Value History Highly Suspicious 2 EKG Normal 0 Age 45-64 1 Risk Factors >3 or Hx ASHD 2 Troponin Normal limit 0 Total 5 I personally scribed for RAMBO AGUILAR MD ([email or web address]) on 12/10/24 at 08:03. E lectronically submitted by Matt Rogers ([email or web address]). RAMBO AGUILAR MD Dec 10, 2024 08:03
[2024-12-10 08:12] LABS: Urine Bacteria None Seen /hpf (None Seen)
[2024-12-10 08:18] VITALS: PULSE 66; RESP 17; O2SAT 98
[2024-12-10 08:25] LABS: Basophils # (auto) 0 10 ^3/uL (0-0.2); Basophils % (auto) 0.5 % (0.0-2.0); Eosinophils # (auto) 0.3 10 ^3/uL (0-0.8); Eosinophils % (auto) 2.7 % (0.0-7.0); Hematocrit 41.8 % (41.0-53.0); Hemoglobin 13.6 g/dL (13.5-17.5); Lymphocytes # (auto) 2.4 10 ^3/uL (0.4-5.4); Lymphocytes % (auto) 25.3 % (10.0-50.0); Mean Corpuscular Hemoglobin 29.8 pg (28.0-32.0); Mean Corpuscular Hgb Conc. 32.6 g/dL (32.0-36.0); Mean Corpuscular Volume 91.3 fL (80.0-100.0); Monocytes # (auto) 0.6 10 ^3/uL (0-1.3); Monocytes % (auto) 6.6 % (0.0-12.0); Neutrophils # (auto) 6.2 10 ^3/uL (1.6-8.6); Neutrophils % (auto) 64.9 % (37.0-80.0); Platelet Count (auto) 272 10^3/uL (140-450); Red Blood Cells 4.57 10^6/uL (4.5-5.90); Red Cell Distribution Width 16.2 % (11.8-14.3); White Blood Cell 9.5 10^3/uL (4.4-10.8)
[2024-12-10 08:38] LABS: Urine Blood Negative /uL (Negative); Urine Clarity Clear (Clear); Urine Color Light-Yellow (Yellow); Urine Protein, UAD TRACE (Negative); Urine Specific Gravity 1.016 (1.001-1.035); Urine Squamous Epithelial Cell FEW /hpf (<5); Urine Urobilinogen Normal (Negative); Urine WBC 33 /HPF (0-3)
[2024-12-10 08:52] LABS: Chloride 100 mmol/L (98-107); Potassium 3.9 mmol/L (3.5-5.1)
[2024-12-10 08:53] LABS: Anion Gap 11 (5-15); Carbon Dioxide 20 mmol/L (20-31)
[2024-12-10 08:54] LABS: Calcium 9.6 mg/dL (8.7-10.4)
[2024-12-10 08:56] LABS: Sodium 131 mmol/L (136-145)
[2024-12-10 08:59] LABS: BUN/Creatinine Ratio 15.3 (10.0-20.0)
[2024-12-10 09:14] LABS: Blood Urea Nitrogen 9 mg/dL (9-23); Glucose 171 mg/dL (74-106)
[2024-12-10] MEDS ORDERED: ONDANSETRON HCL 4 MG/2 ML VIAL IV PRN (11:45)
[2024-12-10] MEDS ORDERED: DOCUSATE SOD 100 MG CAP PO PRN (11:45)
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
[2024-12-10] MEDS ORDERED: DEXTROSE (50%) 50ML SYRG IV PRN (13:15)
[2024-12-10] MEDS: SODIUM CHLORIDE 0.9% 1,000 ML IV ONE (13:19)
[2024-12-10] MEDS: cefTRIAXone 1GM/50ML D5W 50 ML IV ONE (13:19)
[2024-12-10] MEDS: SODIUM CHLOR 0.9% PF (SALINE LOCK) 10ML VIAL/SYR IV SCH (13:20)
[2024-12-10] MEDS: RANOLAZINE ER 500 MG TAB PO SCH (16:01)
[2024-12-10] MEDS: InsuLIN REG 1unit/0.01ml Soln (100units/ml) SC SCH ×2 (17:00→22:00)
[2024-12-10] MEDS: ACCU-CHEK COMFORT CURVE STRIP VI SCH (17:44)
[2024-12-10 19:45] VITALS: PULSE 66; RESP 17; O2SAT 98
[2024-12-11] VITALS (8 sets, daily range): BP systolic 109–156; BP diastolic 35–72; PULSE 63–80; RESP 17–19; TEMP 97.4–98.8; O2SAT 96–99
[2024-12-11] MEDS: METOPROLOL TARTRATE 50 MG TAB PO SCH (00:09)
[2024-12-11] MEDS: ATORVASTATIN 20 MG TAB PO SCH (00:10)
[2024-12-11] MEDS ORDERED: METO-158 PO (02:40)
[2024-12-11] MEDS ORDERED: ENAL1TAB42 PO (02:41)
[2024-12-11 05:24] LABS: Basophils # (auto) 0 10 ^3/uL (0-0.2); Basophils % (auto) 0.4 % (0.0-2.0); Eosinophils # (auto) 0.1 10 ^3/uL (0-0.8); Eosinophils % (auto) 1.3 % (0.0-7.0); Hematocrit 41.3 % (41.0-53.0); Hemoglobin 13.4 g/dL (13.5-17.5); Lymphocytes # (auto) 2.8 10 ^3/uL (0.4-5.4); Lymphocytes % (auto) 25.6 % (10.0-50.0); Mean Corpuscular Hemoglobin 29.7 pg (28.0-32.0); Mean Corpuscular Hgb Conc. 32.4 g/dL (32.0-36.0); Mean Corpuscular Volume 91.6 fL (80.0-100.0); Monocytes # (auto) 0.5 10 ^3/uL (0-1.3); Monocytes % (auto) 4.3 % (0.0-12.0); Neutrophils # (auto) 7.4 10 ^3/uL (1.6-8.6); Neutrophils % (auto) 68.4 % (37.0-80.0); Platelet Count (auto) 250 10^3/uL (140-450); Red Blood Cells 4.51 10^6/uL (4.5-5.90); White Blood Cell 10.8 10^3/uL (4.4-10.8)
[2024-12-11 05:50] LABS: Alanine Aminotransferase 22 U/L (7-40); Albumin 4.1 g/dL (3.2-4.8); Alkaline Phosphatase 90 U/L (46-116); Anion Gap 10 (5-15); BUN/Creatinine Ratio 21.6 (10.0-20.0); Bilirubin, Total 0.5 mg/dL (0.2-1.0); Calcium 9.2 mg/dL (8.7-10.4); Carbon Dioxide 22 mmol/L (20-31); Chloride 101 mmol/L (98-107); Potassium 3.9 mmol/L (3.5-5.1)
[2024-12-11 06:30] LABS: Blood Urea Nitrogen 8 mg/dL (9-23); Glucose 122 mg/dL (74-106); Sodium 133 mmol/L (136-145)
[2024-12-11 06:31] LABS: Aspartate Aminotransferase < 8 U/L (13-40)
--- NOTE | 2024-12-11 07:26 | ECG ---
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
[2024-12-11] MEDS: ASPirin 81 mg TAB PO SCH (09:50)
[2024-12-11] MEDS: cefTRIAXone 1GM/50ML D5W 50 ML IV SCH (09:51)
[2024-12-11] MEDS: EZETIMIBE 10 MG TAB PO SCH (09:51)
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
[2024-12-11] MEDS ORDERED: diphenhdrAMINE HCL 50 MG/1 ML VL IV ONE (13:30)
[2024-12-11] MEDS ORDERED: methylPREDNISolone SOD SUCC 125 MG/2 ML VL IV ONE (13:30)
[2024-12-11] MEDS: MEROPENEM 1GM IVPB 50 ML IV SCH (13:53)
[2024-12-12] VITALS (7 sets, daily range): BP systolic 119–147; BP diastolic 55–74; PULSE 69–93; RESP 18–19; TEMP 97.7–98.1; O2SAT 96–99
[2024-12-12] MEDS ORDERED: ACETAMINOPHEN 325 MG TAB PO PRN (08:45)
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
[2024-12-12] MEDS ORDERED: HYDROcodone-ACET 5/325MG TAB PO PRN (11:15)
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
[2024-12-12 14:20] LABS: INR 0.97 (0.9-1.15); Partial Thromboplastin Time 28.6 SEC (24.5-34.5); Prothrombin Time 10.3 sec (9.3-11.8)
[2024-12-12] MEDS: LIDOCAINE 1% (LOCAL ANESTH.) PF 5ml SDV ID ONE (16:15)
[2024-12-12] MEDS: SODIUM CHLOR 0.9% PF (SALINE LOCK) 10ML VIAL/SYR IV SCH (21:18)
[2024-12-13 05:00] VITALS: BP 123/97; PULSE 75; RESP 18; TEMP 97.6; O2SAT 95
[2024-12-13 08:00] VITALS: PULSE 69; RESP 18
[2024-12-13 09:00] VITALS: BP 145/68; PULSE 73; RESP 18; TEMP 98.6; O2SAT 97
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
[2024-12-13 13:00] VITALS: BP 138/52; PULSE 67; RESP 18; TEMP 97.7; O2SAT 97
[2024-12-13 14:17] VITALS: BP 115/65; PULSE 73; RESP 16; TEMP 98.6; O2SAT 97
== END 2024-12-13 15:50 | disposition home health service (06) | DRG 466 ==
LOC: ER 07:45 → OVERFLOW 11:34 → EAST 11:38
PROVIDERS: ADMIT Family Medicine; ATTEND Family Medicine
DX: T83.518A Infection and inflammatory reaction due to other urinary catheter, initial encounter (principal); G82.20 Paraplegia, unspecified; N12 Tubulo-interstitial nephritis, not specified as acute or chronic; I10 Essential (primary) hypertension; E11.65 Type 2 diabetes mellitus with hyperglycemia; E78.5 Hyperlipidemia, unspecified; E66.9 Obesity, unspecified; Z99.3 Dependence on wheelchair; Z95.1 Presence of aortocoronary bypass graft; Z88.6 Allergy status to analgesic agent; Z88.1 Allergy status to other antibiotic agents; Z88.0 Allergy status to penicillin; Z79.899 Other long term (current) drug therapy; Z68.41 Body mass index [BMI] 40.0-44.9, adult
CPT/HCPCS: 36415; 36569; 76937; 80048; 80053; 81001; 82962; 84484; 85025; 85610; 85730; 87040; 87081; 87086; 87088; 87186; 93005; 99291; G0378; J1815; J2185

== ENCOUNTER 2024-12-22 08:27 | Emergency (ER) | payer MEDICAID ==
[~2024-12-22] VITALS: Ht 167.6 cm; Wt 80.3 kg
[~2024-12-22 08:27] MED LIST changes: -ASPI81CH59 PO; +ENAL1TAB42 PO; -NITR-87 PO; -NITR50CA24 PO; -PRED20TA2 PO
[2024-12-22 09:00] VITALS: PULSE 63; RESP 17; O2SAT 95
--- NOTE | 2024-12-22 09:51 | ED.PDOC ---
History of Present Illness HPI Comments 59-year-old male with PMHx DM, HTN, HLD, DE, UTIs presents with a chief complaint of chills and sweats. Patient mentions that he was just recently discharged from this hospital after being here for 4 days with a diagnosis of UTI and was given antibiotics to take at home. Patient states that the medicine is not making him feel good and he is getting chills and sweats again which is what brought him into the hospital x 4 days ago. Patient mentions that he felt good on Rocephin and since they discontinued it, he has been feeling not good. Chief Complaint: Urinary Time Seen by MD: 09:41 Primary Care Provider: none Reviewed Notes: Medications, Allergies Allergies: Coded Allergies: Amoxicillin (Verified Allergy, Severe, 11/26/21) Acetaminophen (Verified Allergy, Mild, EXCESSIVE SWEATING, 12/12/24) PATIENT STATES NORCO IS OK, NO REACTION Ciprofloxacin (Verified Allergy, Unknown, 07/04/23) Ibuprofen (Verified Allergy, Unknown, 07/04/23) Levofloxacin (Verified Allergy, Unknown, 11/24/24) Penicillins (Verified Adverse Reaction, Intermediate, 05/07/23) Hot Flashes/Feels Hot during administration Home Meds Active Scripts Diphenhydramine Hcl (BENADRYL CAPSULE) 25 Mg Cp, 25 MG PO DAILY PRN for 30 Days, #30 CAP 0 Refills Prov:MOIRA GRACE RESIDENT 12/01/24 Sennosides-Docusate Sodium (Senna Plus 50-8.6 mg) 1 Cap Cap, 1 CAP PO BID, #30 CAP Prov:MARTINEZ HARO 08/09/23 Enalapril Maleate (Enalapril Maleate) 20 Mg Tab, 1 TAB PO DAILY, #30 TAB 5 Refills Prov:THIEN BARKLEY MD 07/10/23 Reported Medications Enalapril Maleate (Enalapril Maleate) 2.5 Mg Tab, 20 MG PO HS for 30 Days, MG 12/11/24 Metoprolol Tartrate (Metoprolol Tartrate) 50 Mg Tab, 50 MG PO BID for 30 Days, MG 12/11/24 Atorvastatin Calcium (ATORVASTATIN CALCIUM) 40 Mg Tab, 1 TAB PO DAILY, #30 TAB 5 Refills 11/11/23 Ezetimibe (Zetia) 10 Mg Tab, 1 TAB PO DAILY, #30 TAB 5 Refills 05/05/23 Metformin Hydrochloride (Metformin Hcl) 500 Mg Tab, 1 TAB PO BID, #60 TAB 3 Refills 05/05/23 Ranolazine (Ranolazine ER) 1,000 Mg Tab, 500 MG PO TID, TAB 05/05/23 Information Source: Patient Mode of Arrival: Wheelchair Severity: Moderate Timing: Days Duration: Since onset Prehospital treatment: Treatment (ANTIBIOTICS FOR UTI) Past Medical History PAST MEDICAL HISTORY: DM, High Lipids, HTN, DE, UTI'S Surgical History: CABG Family History Family History: Reviewed,noncontributory to illness Social History Smoker: Non-Smoker Alcohol: Denies ETOH Use Drugs: Denies Drug Use Lives In: Home Constitutional: reports: chills, sweats; denies: diaphoresis, fatigue, fever, malaise, weakness, others EENTM: denies: blurred vision, double vision, ear bleeding, ear discharge, ear drainage, ear pain, ear ringing, eye pain, eye redness, hearing loss, mouth pain, mouth swelling, nasal discharge, nose bleeding, nose congestion, nose pain, photophobia, tearing, throat pain, throat swelling, voice changes, others Respiratory: denies: cough, hemoptysis, orthopnea, SOB at rest, shortness of breath, SOB with excertion, stridor, wheezing, others Cardiovascular: denies: chest pain, dizzy spells, diaphoresis, Dyspnea on exertion, edema, irregular heart beat, left arm pain, lightheadedness, palpitations, PND, syncope, others Gastrointestinal: denies: abdomen distended, abdominal pain, blood streaked bowels, constipated, diarrhea, dysphagia, difficulty swallowing, hematemesis, melena, nausea, poor appetite, poor fluid intake, rectal bleeding, rectal pain, vomiting, others Genitourinary: denies: burning, dysuria, flank pain, frequency, hematuria, incontinence, penile discharge, penile sore, pain, testicle pain, testicle swelling, urgency, others Neurological: denies: dizziness, fainting, headache, left sided numbness, left sided weakness, numbness, paresthesia, pre-existing deficit, right sided numbness, right sided weakness, seizure, speech problems, tingling, tremors, weakness, others Musculoskeletal: denies: back pain, gout, joint pain, joint swelling, muscle pain, muscle stiffness, neck pain, others Integumetry: denies: bruises, change in color, change in hair/nails, dryness, laceration, lesions, lumps, rash, wounds, others Allergic/Immunocompromised: denies: Difficulty Healing, Frequent Infections, Hives, Itching, others Hematologic/Lymphatic: denies: anemia, blood clots, easy bleeding, easy bruising, swollen glands, others Endocrine: denies: excessive hunger, excessive sweating, excessive thirst, excessive urination, flushing, intolerance to cold, intolerance to heat, unexplained weight gain, unexplained weight loss, others Psychiatric: denies: anxiety, bipolar disorder, depression, hopeless, panic disorder, schizophrenia, sleepless, suicidal, others All Other Systems: Reviewed and Negative Physical Exam General Appearance: No Apparent Distress, Normal HEENT: Normal ENT Inspection, Pharynx Normal, TMs Normal Neck: Full Range of Motion, Non-Tender, Normal, Normal Inspection Respiratory: Chest Non-Tender, Lungs Clear, No Accessory Muscle Use, No Respiratory Distress, Normal Breath Sounds Cardiovascular: No Edema, No JVD, No Murmur, No Gallop, Normal Peripheral Pulses, Regular Rate/Rhythm Breast Exam: Deferred Gastrointestinal: No Organomegaly, Non Tender, No Pulsatile Mass, Normal Bowel Sounds, Soft Genitalia: Other (MAIN CATHETER IN PLACE) Pelvic: Deferred Rectal: Deferred Extremities: No calf tenderness, Non-tender, No pedal edema, Other (WHEELCHAIR BOUND) Musculoskeletal : Apperance: Normal Neurologic: Alert, watch assembler II-XII nml as Tested, No Motor Deficits, Normal Affect, Normal Mood, No Sensory Deficits Cerebellar Function: Normal Reflexes: Normal Skin: Dry, Normal Color, Warm Lymphatic: No Adenopathy Was a procedure done? Was a procedure done?: No Differential Dx Considerations may include: Acute cystitis, viral syndrome, electrolyte abnormality, X-Ray, Labs, Meds, VS Vital Signs Date Time Temp Pulse Resp B/P (MAP) Pulse Ox O2 Delivery O2 Flow Rate FiO2 12/22/24 09:00 98.5 63 17 108/66 (80) 95 98.5 12/22/24 09:00 63 17 95 Room Air* 0 21 12/22/24 08:42 97.7 80 19 128/66 (86) 100 Lab Test 12/22/24 09:55 12/22/24 08:34 Range/Units White Blood Count 8.1 4.4-10.8 10^3/uL Red Blood Count 4.44 L 4.5-5.90 10^6/uL Hemoglobin 13.6 13.5-17.5 g/dL Hematocrit 40.7 L 41.0-53.0 % Mean Corpuscular Volume 91.6 80.0-100.0 fL Mean Corpuscular Hemoglobin 30.6 28.0-32.0 pg Mean Corpuscular Hemoglobin Concent 33.4 32.0-36.0 g/dL Red Cell Distribution Width 16.2 H 11.8-14.3 % Platelet Count 257 140-450 10^3/uL Mean Platelet Volume 9.4 6.9-10.8 fL Neutrophils (%) (Auto) 58.5 37.0-80.0 % Lymphocytes (%) (Auto) 25.3 10.0-50.0 % Monocytes (%) (Auto) 7.3 0.0-12.0 % Eosinophils (%) (Auto) 8.0 H 0.0-7.0 % Basophils (%) (Auto) 0.9 0.0-2.0 % Neutrophils # (Auto) 4.8 1.6-8.6 10 ^3/uL Lymphocytes # (Auto) 2.1 0.4-5.4 10 ^3/uL Monocytes # (Auto) 0.6 0-1.3 10 ^3/uL Eosinophils # (Auto) 0.6 0-0.8 10 ^3/uL Basophils # (Auto) 0.1 0-0.2 10 ^3/uL Nucleated Red Blood Cells 0.1 % Sodium Level 135 L 136-145 mmol/L Potassium Level 4.5 3.5-5.1 mmol/L Chloride Level 105 98-107 mmol/L Carbon Dioxide Level 24 20-31 mmol/L Anion Gap 6 5-15 Blood Urea Nitrogen 13 9-23 mg/dL Creatinine 0.60 L 0.700-1.30 mg/dL Glomerular Filtration Rate Calc 112 >90 mL/min BUN/Creatinine Ratio 21.7 H 10.0-20.0 Serum Glucose 131 H 74-106 mg/dL Lactic Acid Level 1.8 0.4-2.0 mmol/L Calcium Level 9.9 8.7-10.4 mg/dL POC Glucose 183 H 70-106 mg/dl Time of 1ST Reevaluation: 10:11 Reevaluation 1ST: Unchanged Patient Education/Counseling: Diagnosis, Treatment, Prognosis Family Education/Counseling: Diagnosis, Treatment, Prognosis Departure 1 Departure Time of Disposition: 11:17 (Patient's workup is benign. We will advise patient to continue his outpatient treatment and follow up with his regular doctors.) Impression: Primary Impression: Chills Disposition: 01 HOME / SELF CARE / HOMELESS Condition: Stable Additional Instructions: Your workup today was benign. You should continue to take your IV antibiotics. It is important to follow up with the regular doctor this week. If your symptoms worsen or if any other concerns please return to the emergency room. Discharged With: Self Critical Care Note Critical Care Time?: No Stability Stability form required: No I personally scribed for RITO COWAN MD ([email or web address]) on 12/22/24 at 09:51. Electronically submitted by Darren Galarza ([email or web address]). RITO COWAN MD Dec 22, 2024 09:51
[2024-12-22 10:19] LABS: Basophils # (auto) 0.1 10 ^3/uL (0-0.2); Basophils % (auto) 0.9 % (0.0-2.0); Eosinophils # (auto) 0.6 10 ^3/uL (0-0.8); Hematocrit 40.7 % (41.0-53.0); Hemoglobin 13.6 g/dL (13.5-17.5); Lymphocytes # (auto) 2.1 10 ^3/uL (0.4-5.4); Lymphocytes % (auto) 25.3 % (10.0-50.0); Mean Corpuscular Hemoglobin 30.6 pg (28.0-32.0); Mean Corpuscular Hgb Conc. 33.4 g/dL (32.0-36.0); Mean Corpuscular Volume 91.6 fL (80.0-100.0); Monocytes # (auto) 0.6 10 ^3/uL (0-1.3); Monocytes % (auto) 7.3 % (0.0-12.0); Neutrophils # (auto) 4.8 10 ^3/uL (1.6-8.6); Neutrophils % (auto) 58.5 % (37.0-80.0); Nucleated Red Blood Cells % 0.1 %; Platelet Count (auto) 257 10^3/uL (140-450); Red Blood Cells 4.44 10^6/uL (4.5-5.90); Red Cell Distribution Width 16.2 % (11.8-14.3); White Blood Cell 8.1 10^3/uL (4.4-10.8)
[2024-12-22 10:26] LABS: Chloride 105 mmol/L (98-107); Potassium 4.5 mmol/L (3.5-5.1)
[2024-12-22 10:27] LABS: Anion Gap 6 (5-15); Calcium 9.9 mg/dL (8.7-10.4); Carbon Dioxide 24 mmol/L (20-31)
--- NOTE | 2024-12-22 10:30 | DVH ---
CHEST RADIOGRAPH Indication: Fever Technique: Single frontal view of the chest was obtained Comparison: XY CHEST PORTABLE on DOS: 11/30/24 FINDINGS: Lines and Tubes: Right PICC terminates in the superior vena cava. Lungs: No focal consolidation. Pleura: No effusion. No pneumothorax. Cardiomediastinal contours: Unremarkable Bones: No acute osseous abnormality. IMPRESSION: 1. Right PICC terminates in the superior vena cava. 2. No acute cardiopulmonary disease.
[2024-12-22 10:32] LABS: BUN/Creatinine Ratio 21.7 (10.0-20.0); Blood Urea Nitrogen 13 mg/dL (9-23); Glucose 131 mg/dL (74-106); Sodium 135 mmol/L (136-145)
[2024-12-22 11:38] VITALS: BP 122/72; PULSE 78; RESP 16; TEMP 98; O2SAT 98
== END 2024-12-22 11:39 | disposition home or self-care (01) ==
LOC: ER 08:27
DX: R68.83 Chills (without fever) (principal); I10 Essential (primary) hypertension; E11.9 Type 2 diabetes mellitus without complications; E78.5 Hyperlipidemia, unspecified; I25.2 Old myocardial infarction; Z95.1 Presence of aortocoronary bypass graft; Z79.899 Other long term (current) drug therapy; Z79.84 Long term (current) use of oral hypoglycemic drugs; Z88.0 Allergy status to penicillin; Z88.1 Allergy status to other antibiotic agents; Z88.5 Allergy status to narcotic agent; Z88.6 Allergy status to analgesic agent
CPT/HCPCS: 36415; 71045; 80048; 82962; 83605; 85025; 87040

== ENCOUNTER 2025-01-11 08:01 | Emergency (ER) | payer MEDICAID ==
[~2025-01-11] VITALS: Ht 157.5 cm; Wt 110.0 kg
[2025-01-11 08:13] VITALS: TEMP 98
[2025-01-11 08:30] VITALS: BP 132/72; PULSE 65; RESP 16; O2SAT 97
--- NOTE | 2025-01-11 08:35 | ED.PDOC ---
History of Present Illness HPI Comments 59 year old male presents to the ED with chief complaint of lab work. Patient reports that he had recently finished antibiotics for sepsis 3 days ago and is here today to have blood work performed. Patient states he currently has a PICC line and Patel catheter in place. Patient denies any and all symptoms at this time. Chief Complaint: Abnormal LAB's Time Seen by MD: 08:33 Primary Care Provider: none Reviewed Notes: Nurses Notes, Medications, Allergies Allergies: Coded Allergies: Amoxicillin (Verified Allergy, Severe, 11/26/21) Acetaminophen (Verified Allergy, Mild, EXCESSIVE SWEATING, 12/12/24) PATIENT STATES NORCO IS OK, NO REACTION Ciprofloxacin (Verified Allergy, Unknown, 07/04/23) Ibuprofen (Verified Allergy, Unknown, 07/04/23) Levofloxacin (Verified Allergy, Unknown, 11/24/24) Penicillins (Verified Adverse Reaction, Intermediate, 05/07/23) Hot Flashes/Feels Hot during administration Home Meds Active Scripts Diphenhydramine Hcl (BENADRYL CAPSULE) 25 Mg Cp, 25 MG PO DAILY PRN for 30 Days, #30 CAP 0 Refills Prov:MOIRA GRACE RESIDENT 12/01/24 Sennosides-Docusate Sodium (Senna Plus 50-8.6 mg) 1 Cap Cap, 1 CAP PO BID, #30 CAP Prov:MARTINEZ HARO 08/09/23 Enalapril Maleate (Enalapril Maleate) 20 Mg Tab, 1 TAB PO DAILY, #30 TAB 5 R efills Prov:THIEN BARKLEY MD 07/10/23 Reported Medications Enalapril Maleate (Enalapril Maleate) 2.5 Mg Tab, 20 MG PO HS for 30 Days, MG 12/11/24 Metoprolol Tartrate (Metoprolol Tartrate) 50 Mg Tab, 50 MG PO BID for 30 Days, MG 12/11/24 Atorvastatin Calcium (ATORVASTATIN CALCIUM) 40 Mg Tab, 1 TAB PO DAILY, #30 TAB 5 Refills 11/11/23 Ezetimibe (Zetia) 10 Mg Tab, 1 TAB PO DAILY, #30 TAB 5 Refills 05/05/23 Metformin Hydrochloride (Metformin Hcl) 500 Mg Tab, 1 TAB PO BID, #60 TAB 3 Refills 05/05/23 Ranolazine (Ranolazine ER) 1,000 Mg Tab, 500 MG PO TID, TAB 05/05/23 Information Source: Patient Mode of Arrival: Wheelchair Severity: None Timing: Days Duration: Since onset Prehospital treatment: None Medication Refill: For: Other (Labs) Past Medical History PAST MEDICAL HISTORY: DM, High Lipids, HTN, [place], UTI'S Surgical History: CABG Family History Family History: Reviewed,noncontributory to illness Social History Smoker: Non-Smoker Alcohol: Denies ETOH Use Drugs: Denies Drug Use Lives In: Home Constitutional: denies: chills, diaphoresis, fatigue, fever, malaise, sweats, weakness, others EENTM: denies: blurred vision, double vision, ear bleeding, ear discharge, ear drainage, ear pain, ear ringing, eye pain, eye redness, hearing loss, mouth pain, mouth swelling, nasal discharge, nose bleeding, nose congestion, nose pain, photophobia, tearing, throat pain, throat swelling, voice changes, others Respiratory: denies: cough, hemoptysis, orthopnea, SOB at rest, shortness of breath, SOB with excertion, stridor, wheezing, others Cardiovascular: denies: chest pain, dizzy spells, diaphoresis, Dyspnea on exer tion, edema, irregular heart beat, left arm pain, lightheadedness, palpitations, PND, syncope, others Gastrointestinal: denies: abdomen distended, abdominal pain, blood streaked bowels, constipated, diarrhea, dysphagia, difficulty swallowing, hematemesis, melena, nausea, poor appetite, poor fluid intake, rectal bleeding, rectal pain, vomiting, others Genitourinary: denies: burning, dysuria, flank pain, frequency, hematuria, incontinence, penile discharge, penile sore, pain, testicle pain, testicle swelling, urgency, others Neurological: denies: dizziness, fainting, headache, left sided numbness, left sided weakness, numbness, paresthesia, pre-existing deficit, right sided numbness, right sided weakness, seizure, speech problems, tingling, tremors, weakness, others Musculoskeletal: denies: back pain, gout, joint pain, joint swelling, muscle pain, muscle stiffness, neck pain, others Integumetry: denies: bruises, change in color, change in hair/nails, dryness, laceration, lesions, lumps, rash, wounds, others Allergic/Immunocompromised: denies: Difficulty Healing, Frequent Infections, Hives, Itching, others Hematologic/Lymphatic: denies: anemia, blood clots, easy bleeding, easy bruising, swollen glands, others Endocrine: denies: excessive hunger, excessive sweating, excessive thirst, excessive urination, flushing, intolerance to cold, intolerance to heat, unexplained weight gain, unexplained weight loss, others Psychiatric: denies: anxiety, bipolar disorder, depression, hopeless, panic disorder, schizophrenia, sleepless, suicidal, others All Other Systems: Reviewed and Negative Physical Exam General Appearance: Moderate Distress, Normal HEENT: Normal ENT Inspection, PERRL/EOMI Neck: Full Range of Motion, Non-Tender, Normal, Normal Inspection Respiratory: Chest Non-Tender, Lungs Clear, No Accessory Muscle Use, No Respiratory Distress, Normal Breath Sounds Cardiovascular: No Edema, No JVD, No Murmur, No Gallop, Normal Peripheral Pulse s, Regular Rate/Rhythm Breast Exam: Deferred Gastrointestinal: No Organomegaly, Non Tender, No Pulsatile Mass, Normal Bowel Sounds, Soft Genitalia: Deferred Pelvic: Deferred Rectal: Deferred Extremities: No calf tenderness, Normal capillary refill, No pedal edema Musculoskeletal : Apperance: Normal 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 Was a procedure done?: No Differential Dx Considerations may include: Urinary tract infection X-Ray, Labs, Meds, VS Vital Signs Date Time Temp Pulse Resp B/P (MAP) Pulse Ox O2 Delivery O2 Flow Rate FiO2 01/11/25 08:30 65 16 97 Room Air* 0 21 01/11/25 08:30 65 16 132/72 (92) 97 01/11/25 08:13 98.0 76 15 129/66 (87) 98 98.0 Lab Test 01/11/25 08:20 Range/Units Urine Color Light-yellow Yellow Urine Clarity Clear Clear Urine pH 6.5 5.0-9.0 Urine Specific [place] 1.015 1.001-1.035 Urine Protein 2+ H Negative Urine Ketones Negative Negative Urine Blood 3+ H Negative /uL Urine Nitrite Negative Negative Urine Bilirubin Negative Negative Urine Urobilinogen Normal Negative mg/dL Urine Leukocyte Esterase Trace Negative /uL Urine RBC 400 0 - 3 /hpf Urine Microscopic WBC 13 H 0-3 /HPF Urine Squamous Epithelial Cells Few <5 /hpf Urine Bacteria Few H None Seen /hpf Urine Glucose Normal Normal mg/dL Patient alert. Has a Patel catheter in place. Just finished a course of antibiotics. Vitals stable. Urinalysis shows UTI. Mild. Was given prescription of Bactrim. No sepsis. Heart rate within normal limits. Saturation pristine on room air. Skin color good. No leg swelling. No shortness a breath. No chest pain. Reviewed his previous visit. Explained to the patient. Was told to follow up with his primary care physician. Was told to come back if there is any problem. Time of 1ST Reevaluation: 09:33 Reevaluation 1ST: Improved Patient Education/Counseling: Diagnosis, Treatment Family Education/Counseling: Diagnosis, Treatment Additional Information Previous visit documents reviewed: 12/22/24 for flu-like symptoms The following tests were ordered, and results were reviewed by me: UA Additional Information was gathered from interviewing the following independent historians: Son I reviewed and agreed with the following test results read by other providers: none I discussed treatment and results with medical personnel and: Patient and son Comprehensive systems review obtained and negative except for what is stated in the HPI. Departure 1 Departure Time of Disposition: 08:56 Impression: Primary Impression: HTN (hypertension) Qualified Codes: I10 - Essential (primary) hypertension Additional Impression: Urinary tract infection Qualified Codes: N30.01 - Acute cystitis with hematuria Disposition: HOME / SELF CARE / HOMELESS Condition: Good e-Prescriptions Sulfamethoxazole W/Trimethopri (Bactrim Ds Tablet) 1 Tab Tb 1 TAB PO BID for 10 Days, #20 TAB Prov: RAMBO AGUILAR MD 01/11/25 Discharged With: Self Critical Care Note Critical Care Time?: No Stability Stability form required: No Heart Score Heart Score: Heart Score Response (Comments) Value History N/A 0 EKG N/A 0 Age N/A 0 Risk Factors N/A 0 Troponin N/A 0 Total 0 I personally scribed for RAMBO AGUILAR MD ([email or web address]) on 01/11/25 at 08:35. Electronically submitted by Matt Rogers ([email or web address]). RAMBO AGUILAR MD Jan 11, 2025 08:35
[2025-01-11 08:40] LABS: Urine Bacteria FEW /hpf (None Seen); Urine Blood 3+ /uL (Negative); Urine Clarity Clear (Clear); Urine Color Light-Yellow (Yellow); Urine Protein, UAD 2+ (Negative); Urine Specific Gravity 1.015 (1.001-1.035); Urine Squamous Epithelial Cell FEW /hpf (<5); Urine Urobilinogen Normal (Negative); Urine WBC 13 /HPF (0-3); Urine pH 6.5 (5.0-9.0)
[2025-01-11] MEDS ORDERED: BACDST PO (08:57)
== END 2025-01-11 09:09 | disposition home or self-care (01) ==
LOC: ER 08:01
DX: N39.0 Urinary tract infection, site not specified (principal); I10 Essential (primary) hypertension; E11.9 Type 2 diabetes mellitus without complications; E78.5 Hyperlipidemia, unspecified; Z79.84 Long term (current) use of oral hypoglycemic drugs; Z79.899 Other long term (current) drug therapy; Z95.1 Presence of aortocoronary bypass graft; Z88.0 Allergy status to penicillin; Z88.1 Allergy status to other antibiotic agents; Z88.5 Allergy status to narcotic agent; Z88.6 Allergy status to analgesic agent
CPT/HCPCS: 81001

== ENCOUNTER 2025-01-25 11:51 | Emergency (ER) | payer MEDICAID ==
[~2025-01-25] VITALS: Ht 157.5 cm; Wt 108.0 kg
[~2025-01-25 11:51] MED LIST changes: +BACDST PO
--- NOTE | 2025-01-25 12:07 | ED.PDOC ---
General HPI Comments 59 y.o paraplegic male with PMHx of recurrent UTI's, [place], HTN and hyperlipidemia, presents to the ED for a chief complaint of back pain x today. Patient repots when he develops back pain, he is diagnosed with a UTI. Last UTI was about 2 weeks ago and finished antibiotic course of Bactrim 5 days ago. Patient has a history of PICC line to receive antibiotics. Patient was seen at this ED multiple times for UTI's, last visit was on 01/11/25. Patient denies any hematuria, fever, chills, dysuria. nausea, vomiting, or abdominal pain. Chief Complaint: Urinary Time Seen by MD: 12:05 Primary Care Provider: none Reviewed notes: Nurses Notes, Medications, Allergies Allergies: Coded Allergies: Amoxicillin (Verified Allergy, Severe, 11/26/21) Acetaminophen (Verified Allergy, Mild, EXCESSIVE SWEATING, 12/12/24) PATIENT STATES NORCO IS OK, NO REACTION Ciprofloxacin (Verified Allergy, Unknown, 07/04/23) Ibuprofen (Verified Allergy, Unknown, 07/04/23) Levofloxacin (Verified Allergy, Unknown, 11/24/24) Penicillins (Verified Adverse Reaction, Intermediate, 05/07/23) Hot Flashes/Feels Hot during administration Home Meds Active Scripts Sulfamethoxazole W/Trimethopri (Bactrim Ds Tablet) 1 Tab Tb, 1 TAB PO BID for 10 Days, #20 TAB Prov:RAMBO AGUILAR MD 01/11/25 Diphenhydramine Hcl (BENADRYL CAPSULE) 25 Mg Cp, 25 MG PO DAILY PRN for 30 Days, #30 CAP 0 Refills Prov:MOIRA GRACE RESIDENT 12/01/24 Sennosides-Docusate Sodium (Senna Plus 50-8.6 mg) 1 Cap Cap, 1 CAP PO BID, #30 CAP Prov:MARTINEZ HARO 08/09/23 Enalapril Maleate (Enalapril Maleate) 20 Mg Tab, 1 TAB PO DAILY, #30 TAB 5 Refills Prov:THIEN BARKLEY MD 07/10/23 Reported Medications Enalapril Maleate (Enalapril Maleate) 2.5 Mg Tab, 20 MG PO HS for 30 Days, MG 12/11/24 Metoprolol Tartrate (Metoprolol Tartrate) 50 Mg Tab, 50 MG PO BID for 30 Days, MG 12/11/24 Atorvastatin Calcium (ATORVASTATIN CALCIUM) 40 Mg Tab, 1 TAB PO DAILY, #30 TAB 5 Refills 11/11/23 Ezetimibe (Zetia) 10 Mg Tab, 1 TAB PO DAILY, #30 TAB 5 Refills 05/05/23 Metformin Hydrochloride (Metformin Hcl) 500 Mg Tab, 1 TAB PO BID, #60 TAB 3 Refills 05/05/23 Ranolazine (Ranolazine ER) 1,000 Mg Tab, 500 MG PO TID, TAB 05/05/23 Information Source: Patient Mode of Arrival: Wheelchair Past Medical History PAST MEDICAL HISTORY: DM, High Lipids, HTN, [place], UTI'S Surgical History: CABG Family History Family History: Reviewed,noncontributory to illness Social History Smoker: Non-Smoker Alcohol: Denies ETOH Use Drugs: Denies Drug Use Lives In: Home Constitutional: denies: chills, diaphoresis, fatigue, fever, malaise, sweats, weakness, others EENTM: denies: blurred vision, double vision, ear bleeding, ear discharge, ear drainage, ear pain, ear ringing, eye pain, eye redness, hearing loss, mouth pain, mouth swelling, nasal discharge, nose bleeding, nose congestion, nose pain, photophobia, tearing, throat pain, throat swelling, voice changes, others Respiratory: denies: cough, hemoptysis, orthopnea, SOB at rest, shortness of breath, SOB with excertion, stridor, wheezing, others Cardiovascular: denies: chest pain, dizzy spells, diaphoresis, Dyspnea on exertion, edema, irregular heart beat, left arm pain, lightheadedness, palpitations, PND, syncope, others Gastrointestinal: denies: abdomen distended, abdominal pain, blood streaked bowels, constipated, diarrhea, dysphagia, difficulty swallowing, hematemesis, melena, nausea, poor appetite, poor fluid intake, rectal bleeding, rectal pain, vomiting, others Genitourinary: denies: burning, dysuria, flank pain, frequency, hematuria, incontinence, penile discharge, penile sore, pain, testicle pain, testicle swelling, urgency, others Neurological: denies: dizziness, fainting, headache, left sided numbness, left sided weakness, numbness, paresthesia, pre-existing deficit, right sided numbness, right sided weakness, seizure, speech problems, tingling, tremors, weakness, others Musculoskeletal: reports: back pain; denies: gout, joint pain, joint swelling, muscle pain, muscle stiffness, neck pain, others Integumetry: denies: bruises, change in color, change in hair/nails, dryness, laceration, lesions, lumps, rash, wounds, others Allergic/Immunocompromised: denies: Difficulty Healing, Frequent Infections, Hives, Itching, others Hematologic/Lymphatic: denies: anemia, blood clots, easy bleeding, easy bruising, swollen glands, others Endocrine: denies: excessive hunger, excessive sweating, excessive thirst, excessive urination, flushing, intolerance to cold, intolerance to heat, unexplained weight gain, unexplained weight loss, others Psychiatric: denies: anxiety, bipolar disorder, depression, hopeless, panic disorder, schizophrenia, sleepless, suicidal, others All Other Systems: Reviewed and Negative Physical Exam General Appearance: Moderate Distress HEENT: Normal ENT Inspection, Pharynx Normal, TMs Normal Neck: Full Range of Motion, Non-Tender, Normal, Normal Inspection Respiratory: Chest Non-Tender, Lungs Clear, No Accessory Muscle Use, No Respiratory Distress, Normal Breath Sounds Cardiovascular: No Edema, No JVD, No Murmur, No Gallop, Normal Peripheral Pulses, Regular Rate/Rhythm Breast Exam: Deferred Gastrointestinal: No Organomegaly, Non Tender, No Pulsatile Mass, Normal Bowel Sounds, Soft Genitalia: Deferred Pelvic: Deferred Rectal: Deferred Extremities: No pedal edema Musculoskeletal : Apperance: Normal Neurologic: Alert Cerebellar Function: NOT DONE Reflexes: NOT DONE Skin: Dry, Normal Color, Warm Lymphatic: No Adenopathy Was a procedure done? Was a procedure done?: No Differential Diagnosis Kidney stone (Female): Musculoskeletal pain, Urinary obstruction, Urolithiasis Kidney stone (Male): Pyelonephritis, Strain, Urolithiasis Urinary Problem (Female): Pyelonephritis, UTI X-Ray, Labs, Meds, VS Vital Signs Date Time Temp Pulse Resp B/P (MAP) Pulse Ox O2 Delivery O2 Flow Rate FiO2 01/25/25 12:01 98.2 64 16 123/60 (81) 96 98.2 Lab Test 01/25/25 12:36 Range/Units Urine Color Light-yellow Yellow Urine Clarity Clear Clear Urine pH 6.0 5.0-9.0 Urine Specific [place] 1.010 1.001-1.035 Urine Protein Negative Negative Urine Ketones Negative Negative Urine Blood Trace H Negative /uL Urine Nitrite Negative Negative Urine Bilirubin Negative Negative Urine Urobilinogen Normal Negative mg/dL Urine Leukocyte Esterase Negative Negative /uL Urine RBC 6 0 - 3 /hpf Urine Microscopic WBC 1 0-3 /HPF Urine Squamous Epithelial Cells None seen <5 /hpf Urine Bacteria Few H None Seen /hpf Urine Glucose Normal Normal mg/dL Patient alert. Complaining of flank pain. Vitals stable. Answering questions. History of urinary tract infection. Urinalysis does show trace blood. No sign of any infection. No sign of sepsis. Reviewed his previous visit. Explained to the patient. Was told follow up with his primary care physician. Was told to come back if there is any problem. Time of 1ST Reevaluation: 12:04 Reevaluation 1ST: Improved Patient Education/Counseling: Diagnosis, Treatment Family Education/Counseling: No Family Present Departure 1 Departure Time of Disposition: 12:09 Impression: Primary Impression: Hematuria Qualified Codes: R31.9 - Hematuria, unspecified Disposition: 01 HOME / SELF CARE / HOMELESS Condition: Good Discharged With: Self Critical Care Note Critical Care Time?: No Stability Stability form required: No I personally scribed for RAMBO AGUILAR MD ([email or web address]) on 01/25/25 at 12:07. Electronically submitted by Tamanna Julien ([facility]). I personally scribed for RAMBO AGUILAR MD ([email or web address]) on 01/25/25 at 12:12. Electronically submitted by Tamanna Julien ([facility]). RAMBO AGUILAR MD Jan 25, 2025 12:07
[2025-01-25 13:03] LABS: Urine Bacteria FEW /hpf (None Seen); Urine Blood TRACE /uL (Negative); Urine Clarity Clear (Clear); Urine Color Light-Yellow (Yellow); Urine Protein, UAD Negative (Negative); Urine Squamous Epithelial Cell None Seen /hpf (<5); Urine Urobilinogen Normal (Negative); Urine WBC 1 /HPF (0-3)
[2025-01-25 14:06] VITALS: BP 126/78; PULSE 98; RESP 12; TEMP 98.2; O2SAT 98
== END 2025-01-25 14:09 | disposition home or self-care (01) ==
LOC: ER 11:51
DX: R31.9 Hematuria, unspecified (principal); M54.9 Dorsalgia, unspecified; E11.9 Type 2 diabetes mellitus without complications; E78.5 Hyperlipidemia, unspecified; I10 Essential (primary) hypertension; Z79.84 Long term (current) use of oral hypoglycemic drugs; Z79.899 Other long term (current) drug therapy; Z95.1 Presence of aortocoronary bypass graft; Z88.0 Allergy status to penicillin; Z88.1 Allergy status to other antibiotic agents; Z88.5 Allergy status to narcotic agent; Z88.6 Allergy status to analgesic agent
CPT/HCPCS: 81001; 87086

== ENCOUNTER 2025-02-25 08:12 | Emergency (ER) | payer MEDICAID ==
[~2025-02-25] VITALS: Ht 157.5 cm; Wt 109.0 kg
[2025-02-25 08:52] VITALS: BP 138/51; PULSE 75; RESP 16; TEMP 97.5; O2SAT 98
[2025-02-25 08:53] LABS: Urine Bacteria FEW /hpf (None Seen); Urine Blood 3+ /uL (Negative); Urine Clarity Clear (Clear); Urine Color Colorless (Yellow); Urine Protein, UAD Negative (Negative); Urine Specific Gravity 1.007 (1.001-1.035); Urine Squamous Epithelial Cell None Seen /hpf (<5); Urine Urobilinogen Normal (Negative); Urine WBC 21 /HPF (0-3); Urine pH 5.5 (5.0-9.0)
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
[2025-02-25] MEDS ORDERED: CEPH500C PO (09:36)
[2025-02-25] MEDS ORDERED: BACDST PO (09:36)
== END 2025-02-25 09:37 | disposition home or self-care (01) ==
LOC: ER 08:12
DX: N39.0 Urinary tract infection, site not specified (principal); I10 Essential (primary) hypertension; I25.2 Old myocardial infarction; E11.9 Type 2 diabetes mellitus without complications; E78.5 Hyperlipidemia, unspecified; E66.9 Obesity, unspecified; Z87.440 Personal history of urinary (tract) infections; Z95.1 Presence of aortocoronary bypass graft; Z79.899 Other long term (current) drug therapy; Z79.84 Long term (current) use of oral hypoglycemic drugs; Z88.0 Allergy status to penicillin; Z88.1 Allergy status to other antibiotic agents; Z88.5 Allergy status to narcotic agent; Z88.6 Allergy status to analgesic agent; Z68.41 Body mass index [BMI] 40.0-44.9, adult
CPT/HCPCS: 81001

== ENCOUNTER 2025-05-16 07:41 | Emergency (ER) | payer MEDICAID ==
[~2025-05-16] VITALS: Ht 157.5 cm; Wt 110.0 kg
[~2025-05-16 07:41] MED LIST changes: +CEPH500C PO
[2025-05-16 08:22] LABS: Urine Protein, UAD Negative (Negative)
[2025-05-16] MEDS: cefTRIAXone 1GM/50ML D5W 50 ML IV ONE (08:32)
[2025-05-16] MEDS: SODIUM CHLORIDE 0.9% 500 ML IVB ONE (08:32)
[2025-05-16 08:43] VITALS: PULSE 74; RESP 16; O2SAT 96
[2025-05-16 08:46] LABS: Hematocrit 39.7 % (41.0-53.0); Hemoglobin 13.5 g/dL (13.5-17.5); Mean Corpuscular Hemoglobin 30.9 pg (28.0-32.0); Mean Corpuscular Volume 90.6 fL (80.0-100.0); Nucleated Red Blood Cells % 0.0 %
--- NOTE | 2025-05-16 09:32 | ED.PDOC ---
General HPI Comments 50-year-old male presented to the emergency department complaining of painful lesion cloudy patient has a Myers catheter which he replaced week ago he has chronic UTI is Chief Complaint: Urinary Time Seen by MD: 07:48 Primary Care Provider: none Reviewed notes: Nurses Notes, Medications, Allergies Allergies: Coded Allergies: Amoxicillin (Verified Allergy, Severe, 11/26/21) Acetaminophen (Verified Allergy, Mild, EXCESSIVE SWEATING, 12/12/24) PATIENT STATES NORCO IS OK, NO REACTION Ciprofloxacin (Verified Allergy, Unknown, 07/04/23) Ibuprofen (Verified Allergy, Unknown, 07/04/23) Levofloxacin (Verified Allergy, Unknown, 11/24/24) Penicillins (Verified Adverse Reaction, Intermediate, 05/07/23) Hot Flashes/Feels Hot during administration Home Meds Active Scripts Phenazopyridine HCl (Phenazopyridine Hydrochlo) 200 Mg Tab, 200 MG PO BID PRN for 7 Days, #14 TAB Prov:VICENTE MURDOCK MD 05/16/25 Sulfamethoxazole W/Trimethopri (Bactrim Ds Tablet) 1 Tab Tb, 1 TAB PO BID for 14 Days, #28 TAB Prov:VICENTE MURDOCK MD 05/16/25 Cephalexin Monohydrate (Cephalexin) 500 Mg Cap, 1 CAP PO QID for 10 Days, #40 CAP 0 Refills Prov:SE ARCE NP 02/25/25 Sulfamethoxazole W/Trimethopri (Bactrim Ds Tablet) 1 Tab Tb, 1 TAB PO BID for 7 Days, #14 TAB 0 Refills Prov:SE ARCE NP 02/25/25 Sulfamethoxazole W/Trimethopri (Bactrim Ds Tablet) 1 Tab Tb, 1 TAB PO BID for 10 Days, #20 TAB Prov:RAMBO AGUILAR MD 01/11/25 Diphenhydramine Hcl (BENADRYL CAPSULE) 25 Mg Cp, 25 MG PO DAILY PRN for 30 Days, #30 CAP 0 Refills Prov:MOIRA GRACE RESIDENT 12/01/24 Sennosides-Docusate Sodium (Senna Plus 50-8.6 mg) 1 Cap Cap, 1 CAP PO BID, #30 CAP Prov:MARTINEZ HARO 08/09/23 Enalapril Maleate (Enalapril Maleate) 20 Mg Tab, 1 TAB PO DAILY, #30 TAB 5 Refills Prov:THIEN BARKLEY MD 07/10/23 Reported Medications Enalapril Maleate (Enalapril Maleate) 2.5 Mg Tab, 20 MG PO HS for 30 Days, MG 12/11/24 Metoprolol Tartrate (Metoprolol Tartrate) 50 Mg Tab, 50 MG PO BID for 30 Days, MG 12/11/24 Atorvastatin Calcium (ATORVASTATIN CALCIUM) 40 Mg Tab, 1 TAB PO DAILY, #30 TAB 5 Refills 11/11/23 Ezetimibe (Zetia) 10 Mg Tab, 1 TAB PO DAILY, #30 TAB 5 Refills 05/05/23 Metformin Hydrochloride (Metformin Hcl) 500 Mg Tab, 1 TAB PO BID, #60 TAB 3 Refills 05/05/23 Ranolazine (Ranolazine ER) 1,000 Mg Tab, 500 MG PO TID, TAB 05/05/23 Information Source: Patient Mode of Arrival: Wheelchair Severity: Moderate Inability to void: Complete Timing: Days Duration: Intermittent Has not urinated for: Hours Onset: Spontaneous Symptoms: Dysuria, Frequency, Urgency, Inability to void History of: UTI, Urinary obstruction, BPH, Prostatitis, Chronic indwelling myers Location: None Penile discharge: None Modifying factors: None associated signs and symptoms: Dysuria, Frequency, Urgency, Inability to Void Past Medical History PAST MEDICAL HISTORY: DM, High Lipids, HTN, CO, UTI'S Past Medical History (Other): Sleep apnea Surgical History: CABG, PTCA Family History Family History: Reviewed,noncontributory to illness Social History Smoker: Non-Smoker Alcohol: Denies ETOH Use Drugs: Denies Drug Use Lives In: Home Constitutional: denies: chills, diaphoresis, fatigue, fever, malaise, sweats, weakness, others EENTM: denies: blurred vision, double vision, ear bleeding, ear discharge, ear drainage, ear pain, ear ringing, eye pain, eye redness, hearing loss, mouth pain, mouth swelling, nasal discharge, nose bleeding, nose congestion, nose pain, photophobia, tearing, throat pain, throat swelling, voice changes, others Respiratory: denies: cough, hemoptysis, orthopnea, SOB at rest, shortness of breath, SOB with excertion, stridor, wheezing, others Cardiovascular: denies: chest pain, dizzy spells, diaphoresis, Dyspnea on exertion, edema, irregular heart beat, left arm pain, lightheadedness, palpitat ions, PND, syncope, others Gastrointestinal: denies: abdomen distended, abdominal pain, blood streaked bow els, constipated, diarrhea, dysphagia, difficulty swallowing, hematemesis, melena, nausea, poor appetite, poor fluid intake, rectal bleeding, rectal pain, vomiting, others Genitourinary: reports: burning, dysuria, frequency; denies: flank pain, hematuria, incontinence, penile discharge, penile sore, pain, testicle pain, testicle swelling, urgency, others Neurological: denies: dizziness, fainting, headache, left sided numbness, left sided weakness, numbness, paresthesia, pre-existing deficit, right sided numbness, right sided weakness, seizure, speech problems, tingling, tremors, weakness, others Musculoskeletal: denies: back pain, gout, joint pain, joint swelling, muscle pain, muscle stiffness, neck pain, others Integumetry: denies: bruises, change in color, change in hair/nails, dryness, laceration, lesions, lumps, rash, wounds, others Allergic/Immunocompromised: denies: Difficulty Healing, Frequent Infections, Hives, Itching, others Hematologic/Lymphatic: denies: anemia, blood clots, easy bleeding, easy bruising, swollen glands, others Endocrine: denies: excessive hunger, excessive sweating, excessive thirst, excessive urination, flushing, intolerance to cold, intolerance to heat, unexplained weight gain, unexplained weight loss, others Psychiatric: denies: anxiety, bipolar disorder, depression, hopeless, panic disorder, schizophrenia, sleepless, suicidal, others All Other Systems: Reviewed and Negative Physical Exam General Appearance: Moderate Distress, Obese HEENT: Normal ENT Inspection, Pharynx Normal, TMs Normal Neck: Full Range of Motion, Non-Tender, Normal, Normal Inspection Respiratory: Chest Non-Tender, Lungs Clear, No Accessory Muscle Use, No Resp iratory Distress, Normal Breath Sounds Cardiovascular: No Edema, No JVD, No Murmur, No Gallop, Normal Peripheral Pulses, Regular Rate/Rhythm Breast Exam: Deferred Gastrointestinal: No Organomegaly, Non Tender, No Pulsatile Mass, Normal Bowel Sounds, Soft, Other (Obesity) Genitalia: Other (Indwelling Myers catheter), Deferred Pelvic: Deferred Rectal: Deferred Extremities: No calf tenderness, Normal capillary refill, Normal inspection, Normal range of motion, Non-tender, No pedal edema Neurologic: Alert, Motor Weakness Cerebellar Function: NOT DONE Reflexes: NOT DONE Skin: Dry, Normal Color, Warm Peripheral Pulses: 1+ carotid (R), 1+ carotid (L) Lymphatic: Axilla Node Tender (L) Was a procedure done? Was a procedure done?: No Differential Diagnosis Kidney stone (Female): N/A Kidney stone (Male): Pyelonephritis, Urinary tract infection Penile/Scrotal: Prostatitis, UTI, Urinary Retention Urinary Problem (Male): Prostatitis, Plelonephritis, UTI Urinary Problem (Female): N/A X-Ray, Labs, Meds, VS Vital Signs Date Time Temp Pulse Resp B/P (MAP) Pulse Ox O2 Delivery O2 Flow Rate FiO2 05/16/25 10:39 62 18 99 Room Air 05/16/25 10:39 98.5 62 18 141/66 (91) 99 98.5 05/16/25 08:43 74 16 96 Room Air* 0 21 05/16/25 07:43 99.7 73 18 122/51 96 99.7 Lab Test 05/16/25 08:30 05/16/25 08:05 Range/Units White Blood Count 9.4 4.4-10.8 10^3/uL Red Blood Count 4.38 L 4.5-5.90 10^6/uL Hemoglobin 13.5 13.5-17.5 g/dL Hematocrit 39.7 L 41.0-53.0 % Mean Corpuscular Volume 90.6 80.0-100.0 fL Mean Corpuscular Hemoglobin 30.9 28.0-32.0 pg Mean Corpuscular Hemoglobin Concent 34.1 32.0-36.0 g/dL Red Cell Distribution Width 15.8 H 11.8-14.3 % Platelet Count 279 140-450 10^3/uL Mean Platelet Volume 9.8 6.9-10.8 fL Neutrophils (%) (Auto) 58.7 37.0-80.0 % Lymphocytes (%) (Auto) 30.2 10.0-50.0 % Monocytes (%) (Auto) 7.6 0.0-12.0 % Eosinophils (%) (Auto) 2.8 0.0-7.0 % Basophils (%) (Auto) 0.7 0.0-2.0 % Neutrophils # (Auto) 5.5 1.6-8.6 10 ^3/uL Lymphocytes # (Auto) 2.8 0.4-5.4 10 ^3/uL Monocytes # (Auto) 0.7 0-1.3 10 ^3/uL Eosinophils # (Auto) 0.3 0-0.8 10 ^3/uL Basophils # (Auto) 0.1 0-0.2 10 ^3/uL Nucleated Red Blood Cells 0.0 % Urine Color Light-yellow Yellow Urine Clarity Turbid H Clear Urine pH 6.0 5.0-9.0 Urine Specific Staples 1.010 1.001-1.035 Urine Protein Negative Negative Urine Ketones Negative Negative Urine Blood Trace H Negative /uL Urine Nitrite 2+ H Negative Urine Bilirubin Negative Negative Urine Urobilinogen Normal Negative mg/dL Urine Leukocyte Esterase 2+ Negative /uL Urine RBC 9 0 - 3 /hpf Urine Microscopic WBC 13 H 0-3 /HPF Urine Squamous Epithelial Cells Few <5 /hpf Urine Bacteria Few H None Seen /hpf Urine Glucose Normal Normal mg/dL Current Medications Medications (Trade) Dose Ordered Sig/Sumaya Route Start Time Stop Time Status Last Admin Sodium Chloride 500 ml @ 500 mls/hr Q1H ONCE IVB 05/16/25 08:15 05/16/25 09:14 DC 05/16/25 08:32 Ceftriaxone Sodium 50 ml @ 100 mls/hr ONCE ONCE IV 05/16/25 08:15 05/16/25 08:44 DC 05/16/25 08:32 X-Ray, Labs, Meds, VS Comment Course in the emergency department patient came in complaining of urine cloudy and painful patient has indwelling catheter Patient with multiple issues urine shows trace blood 2+ nitrites 2+ leukocyte esterase The CBC is normal Patient has been hydrated and medicated He will be discharged home to follow up with his PCP and urologist because catheter Time of 1ST Reevaluation: 09:31 Reevaluation 1ST: Unchanged Time of 2ND Reevaluation: 10:19 Reevaluation 2ND: Improved Consultation: PCP, Urology Patient Education/Counseling: Diagnosis, Treatment, Prognosis, Need For Follow Up Family Education/Counseling: Diagnosis, Treatment, Prognosis, Need For Follow Up, No Family Present SEPSIS Sepsis Screen Date sepsis recognized/suspect: May 16, 2025 Time Sepsis recognized/suspect: 07 Recent Procedure: No On Antibiotic Therapy: No Respiratory Rate >20: No Heart Rate >90: No Temp<36 C (96.8 F) or >38.3 C: No SBP <90 or MAP <65 mmHG: No New Acute Mental Status Change: No Is the patient on CPAP, BIPAP,: No Physician Orders Heplock Iv (05/16/25 08:05) Urine Bacterial Culture (05/16/25 08:05) Vital Signs Date Time Temp Pulse Resp B/P (MAP) Pulse Ox O2 Delivery O2 Flow Rate FiO2 05/16/25 10:39 62 18 99 Room Air 05/16/25 10:39 98.5 62 18 141/66 (91) 99 98.5 05/16/25 08:43 74 16 96 Room Air* 0 21 05/16/25 07:43 99.7 73 18 122/51 96 99.7 Laboratory Tests Test 05/16/25 08:30 White Blood Count 9.4 10^3/uL (4.4-10.8) Medications Medications Dose Ordered Sig/Sumaya Route Start Time Stop Time Status Last Admin Dose Admin Ceftriaxone Sodium 50 ml @ 100 mls/hr ONCE ONCE IV 05/16/25 08:15 05/16/25 08:44 DC 05/16/25 08:32 Sodium Chloride 500 ml @ 500 mls/hr Q1H ONCE IVB 05/16/25 08:15 05/16/25 09:14 DC 05/16/25 08:32 Departure 1 Departure Time of Disposition: 10:30 Impression: Primary Impression: Recurrent UTI Additional Impressions: Chronic indwelling Myers catheter Paraplegia Disposition: HOME / SELF CARE / HOMELESS Condition: Fair Additional Instructions: Push fluids change the catheter as directed and follow up with your PCP e-Prescriptions Phenazopyridine HCl (Phenazopyridine Hydrochlo) 200 Mg Tab 200 MG PO BID PRN for 7 Days, #14 TAB Prov: VICENTE MURDOCK MD 05/16/25 Sulfamethoxazole W/Trimethopri (Bactrim Ds Tablet) 1 Tab Tb 1 TAB PO BID for 14 Days, #28 TAB Prov: VICENTE MURDOCK MD 05/16/25 Discharged With: Self Critical Care Note Critical Care Time?: No Stability Stability form required: No Heart Score Heart Score: Heart Score Response (Comments) Value History N/A 0 EKG N/A 0 Age 45-64 1 Risk Factors 1 or 2 risk factors 1 Troponin N/A 0 Total 2 VICENTE MURDOCK MD May 16, 2025 09:32
[2025-05-16] MEDS ORDERED: PHEN-922 PO (10:26)
[2025-05-16] MEDS ORDERED: BACDST PO (10:26)
[2025-05-16 10:39] VITALS: BP 141/66; PULSE 62; RESP 18; TEMP 98.5; O2SAT 99
== END 2025-05-16 10:40 | disposition home or self-care (01) ==
LOC: ER 07:41
DX: N39.0 Urinary tract infection, site not specified (principal); G82.20 Paraplegia, unspecified; I10 Essential (primary) hypertension; E11.9 Type 2 diabetes mellitus without complications; E78.5 Hyperlipidemia, unspecified; Z79.84 Long term (current) use of oral hypoglycemic drugs; Z79.899 Other long term (current) drug therapy; Z87.440 Personal history of urinary (tract) infections; Z95.1 Presence of aortocoronary bypass graft; Z88.0 Allergy status to penicillin; Z88.1 Allergy status to other antibiotic agents; Z88.5 Allergy status to narcotic agent; Z88.6 Allergy status to analgesic agent
CPT/HCPCS: 36415; 81001; 85025; 87086; 87088; 87186; 96365; 99284; J0696; J7040

== ENCOUNTER 2025-05-29 09:56 | Emergency (ER) | payer MEDICAID ==
[~2025-05-29] VITALS: Ht 157.5 cm; Wt 110.0 kg
[~2025-05-29 09:56] MED LIST changes: +PHEN-922 PO
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
[2025-05-29 11:11] LABS: Hematocrit 39.2 % (41.0-53.0); Hemoglobin 13.2 g/dL (13.5-17.5); Mean Corpuscular Hemoglobin 30.6 pg (28.0-32.0); Mean Corpuscular Volume 91.1 fL (80.0-100.0); Nucleated Red Blood Cells % 0.0 %
[2025-05-29 11:21] LABS: Chloride 102 mmol/L (98-107); Potassium 4.2 mmol/L (3.5-5.1)
[2025-05-29 11:22] LABS: Anion Gap 12 (5-15); Calcium 9.6 mg/dL (8.7-10.4); Carbon Dioxide 21 mmol/L (20-31)
[2025-05-29 11:23] LABS: Sodium 135 mmol/L (136-145)
--- NOTE | 2025-05-29 11:25 | DVH ---
INDICATION: recurrent UTI TECHNIQUE: Multiple real-time sonographic images of the kidneys and bladder were obtained. COMPARISON: US BLADDER on DOS: 10/10/24, US KIDNEY on DOS: 10/03/24 FINDINGS: The right kidney measures 9 cm in length, which is normal in size. There is normal echogeni city of the right kidney. No hydronephrosis. 3 cm right renal cyst. The left kidney measures 11 cm in length, which is normal in size. There is normal echogenicity of th e left kidney. No hydronephrosis. No large intraluminal masses are seen in the bladder. Prior to voiding the bladder volume measures vo lume 1071 cc. Questionable Myers catheter noted. IMPRESSION: Questionable myers catheter versus bladder diverticulum. Distended bladder.
[2025-05-29 11:27] LABS: BUN/Creatinine Ratio 22.8 (10.0-20.0); Blood Urea Nitrogen 13 mg/dL (9-23); Glucose 148 mg/dL (74-106)
[2025-05-29 13:13] LABS: Urine Protein, UAD Negative (Negative)
[2025-05-29 14:26] VITALS: BP 132/71; PULSE 63; RESP 16; TEMP 97.8; O2SAT 99
== END 2025-05-29 14:27 | disposition home or self-care (01) ==
LOC: ER 09:56
DX: T83.098A Other mechanical complication of other urinary catheter, initial encounter (principal); R30.0 Dysuria; E11.65 Type 2 diabetes mellitus with hyperglycemia; I10 Essential (primary) hypertension; E78.5 Hyperlipidemia, unspecified; I25.10 Atherosclerotic heart disease of native coronary artery without angina pectoris; G82.20 Paraplegia, unspecified; Z95.1 Presence of aortocoronary bypass graft; Z88.5 Allergy status to narcotic agent; Z88.0 Allergy status to penicillin; Z79.899 Other long term (current) drug therapy; Z79.84 Long term (current) use of oral hypoglycemic drugs; Z87.440 Personal history of urinary (tract) infections; Z88.1 Allergy status to other antibiotic agents; Z88.6 Allergy status to analgesic agent; Y83.8 Other surgical procedures as the cause of abnormal reaction of the patient, or of later complication, without mention of misadventure at the time of the procedure; Y92.89 Other specified places as the place of occurrence of the external cause
CPT/HCPCS: 36415; 76775; 80048; 81001; 85025; 87086; 99284; A4315; 51702

== ENCOUNTER 2025-06-11 08:49 | Emergency (ER) | payer MEDICAID ==
[~2025-06-11] VITALS: Ht 157.5 cm; Wt 109.0 kg
[2025-06-11 09:24] VITALS: BP 134/84; PULSE 84; RESP 16; TEMP 98.2; O2SAT 97
[2025-06-11] MEDS ORDERED: CEPH500C PO (09:28)
--- NOTE | 2025-06-11 09:29 | ED.PDOC ---
General HPI Comments A 60 YEAR OLD MALE PRESENTS TO THE ED WITH COMPLAINT OF UTI SYMPTOMS. PATIENT STATES HE HAS A MAIN CATHETER IN PLACE AND HAS A HISTORY OF FREQUENT URINARY TRACT INFECTIONS DUE TO THIS AND HAS BEEN EXPERIENCING PAINFUL URINATION AND URINARY URGENCY FOR THE PAST 3 DAYS. PATIENT IS CONCERNED HE MAY HAVE ANOTHER URINARY TRACT INFECTION. PATIENT DENIES HEMATURIA, FLANK PAIN, FEVER, CHILLS, SHORTNESS OF BREATH, CHEST PAIN, ABDOMINAL PAIN, NAUSEA, VOMITING, HEADACHE, OR OTHER COMPLAINTS. NO OTHER SYMPTOMS OR MODIFYING FACTORS AT THIS TIME. PATIENT IS ALERT, ORIENTED X 4, AND HAS STEADY GAIT. Chief Complaint: Urinary Time Seen by MD: 08:59 Primary Care Provider: none Reviewed notes: Nurses Notes, Medications, Allergies Allergies: Coded Allergies: Amoxicillin (Verified Allergy, Severe, 11/26/21) Acetaminophen (Verified Allergy, Mild, EXCESSIVE SWEATING, 12/12/24) PATIENT STATES NORCO IS OK, NO REACTION Ciprofloxacin (Verified Allergy, Unknown, 07/04/23) Ibuprofen (Verified Allergy, Unknown, 07/04/23) Levofloxacin (Verified Allergy, Unknown, 11/24/24) Penicillins (Verified Adverse Reaction, Intermediate, 05/07/23) Hot Flashes/Feels Hot during administration Home Meds Active Scripts Cephalexin Monohydrate (Cephalexin) 500 Mg Cap, 1 CAP PO QID, #40 CAP Prov:MARTINEZ HARO 06/11/25 Phenazopyridine HCl (Phenazopyridine Hydrochlo) 200 Mg Tab, 200 MG PO BID PRN for 7 Days, #14 TAB Prov:VICENTE MURDOCK MD 05/16/25 Sulfamethoxazole W/Trimethopri (Bactrim Ds Tablet) 1 Tab Tb, 1 TAB PO BID for 14 Days, #28 TAB Prov:VICENTE MURDOCK MD 05/16/25 Cephalexin Monohydrate (Cephalexin) 500 Mg Cap, 1 CAP PO QID for 10 Days, #40 C AP 0 Refills Prov:ES ARCE NP 02/25/25 Sulfamethoxazole W/Trimethopri (Bactrim Ds Tablet) 1 Tab Tb, 1 TAB PO BID for 7 Days, #14 TAB 0 Refills Prov:SE ARCE NP 02/25/25 Sulfamethoxazole W/Trimethopri (Bactrim Ds Tablet) 1 Tab Tb, 1 TAB PO BID for 10 Days, #20 TAB Prov:RAMBO AGUILAR MD 01/11/25 Diphenhydramine Hcl (BENADRYL CAPSULE) 25 Mg Cp, 25 MG PO DAILY PRN for 30 Days, #30 CAP 0 Refills Prov:MOIRA GRACE RESIDENT 12/01/24 Sennosides-Docusate Sodium (Senna Plus 50-8.6 mg) 1 Cap Cap, 1 CAP PO BID, #30 CAP Prov:MARTINEZ HARO 08/09/23 Enalapril Maleate (Enalapril Maleate) 20 Mg Tab, 1 TAB PO DAILY, #30 TAB 5 Refills Prov:THIEN BARKLEY MD 07/10/23 Reported Medications Enalapril Maleate (Enalapril Maleate) 2.5 Mg Tab, 20 MG PO HS for 30 Days, MG 12/11/24 Metoprolol Tartrate (Metoprolol Tartrate) 50 Mg Tab, 50 MG PO BID for 30 Days, MG 12/11/24 Atorvastatin Calcium (ATORVASTATIN CALCIUM) 40 Mg Tab, 1 TAB PO DAILY, #30 TAB 5 Refills 11/11/23 Ezetimibe (Zetia) 10 Mg Tab, 1 TAB PO DAILY, #30 TAB 5 Refills 05/05/23 Metformin Hydrochloride (Metformin Hcl) 500 Mg Tab, 1 TAB PO BID, #60 TAB 3 Refills 05/05/23 Ranolazine (Ranolazine ER) 1,000 Mg Tab, 500 MG PO TID, TAB 05/05/23 Information Source: Patient Mode of Arrival: Wheelchair Severity: Moderate Inability to void: None Timing: Days Duration: Since onset, Days Prehospital treatment: None Onset: Spontaneous Symptoms: Dysuria, Frequency, Urgency History of: UTI Location: Suprapubic Penile discharge: None Modifying factors: None associated signs and symptoms: Dysuria, Frequency, None Past Medical History PAST MEDICAL HISTORY: CAD, DM, High Lipids, HTN, [place], UTI'S Surgical History: CABG, PTCA Family History Family History: Reviewed,noncontributory to illness Social History Smoker: Non-Smoker Alcohol: Denies ETOH Use Drugs: Denies Drug Use Lives In: Home Constitutional: denies: chills, diaphoresis, fatigue, fever, malaise, sweats, weakness, others EENTM: denies: blurred vision, double vision, ear bleeding, ear discharge, ear drainage, ear pain, ear ringing, eye pain, eye redness, hearing loss, mouth pain, mouth swelling, nasal discharge, nose bleeding, nose congestion, nose pain, photophobia, tearing, throat pain, throat swelling, voice changes, others Respiratory: denies: cough, hemoptysis, orthopnea, SOB at rest, shortness of breath, SOB with excertion, stridor, wheezing, others Cardiovascular: denies: chest pain, dizzy spells, diaphoresis, Dyspnea on exertion, edema, irregular heart beat, left arm pain, lightheadedness, pal pitations, PND, syncope, others Gastrointestinal: denies: abdomen distended, abdominal pain, blood streaked bowels, constipated, diarrhea, dysphagia, difficulty swallowing, hematemesis, melena, nausea, poor appetite, poor fluid intake, rectal bleeding, rectal pain, vomiting, others Genitourinary: reports: burning, dysuria, urgency; denies: flank pain, frequency, hematuria, incontinence, penile discharge, penile sore, pain, testicle pain, testicle swelling, others Neurological: denies: dizziness, fainting, headache, left sided numbness, left sided weakness, numbness, paresthesia, pre-existing deficit, right sided numbness, right sided weakness, seizure, speech problems, tingling, tremors, weakness, others Musculoskeletal: denies: back pain, gout, joint pain, joint swelling, muscle pain, muscle stiffness, neck pain, others Integumetry: denies: bruises, change in color, change in hair/nails, dryness, laceration, lesions, lumps, rash, wounds, others Allergic/Immunocompromised: denies: Difficulty Healing, Frequent Infections, Hives, Itching, others Hematologic/Lymphatic: denies: anemia, blood clots, easy bleeding, easy bruising, swollen glands, others Endocrine: denies: excessive hunger, excessive sweating, excessive thirst, excessive urination, flushing, intolerance to cold, intolerance to heat, unexplained weight gain, unexplained weight loss, others Psychiatric: denies: anxiety, bipolar disorder, depression, hopeless, panic disorder, schizophrenia, sleepless, suicidal, others All Other Systems: Reviewed and Negative Physical Exam General Appearance: No Apparent Distress, Obese HEENT: Normal ENT Inspection, Pharynx Normal, TMs Normal Neck: Full Range of Motion, Non-Tender, Normal, Normal Inspection Respiratory: Chest Non-Tender, Lungs Clear, No Accessory Muscle Use, No Respiratory Distress, Normal Breath Sounds Cardiovascular: No Edema, No JVD, No Murmur, No Gallop, Normal Peripheral Pulses, Regular Rate/Rhythm Breast Exam: Deferred Gastrointestinal: No Organomegaly, Non Tender, No Pulsatile Mass, Normal Bowel Sounds, Soft Genitalia: Deferred Pelvic: Deferred Rectal: Deferred Extremities: No calf tenderness, Normal capillary refill, Normal inspection, Normal range of motion, Non-tender, No pedal edema Musculoskeletal : Apperance: Normal 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 Was a procedure done?: No Differential Diagnosis Kidney stone (Female): N/A Kidney stone (Male): N/A Penile/Scrotal: N/A Urinary Problem (Male): Urethritis, Urinary Retention, Urolithiasis, UTI Urinary Problem (Female): N/A X-Ray, Labs, Meds, VS Vital Signs Date Time Temp Pulse Resp B/P (MAP) Pulse Ox O2 Delivery O2 Flow Rate FiO2 06/11/25 09:24 84 16 97 Room Air 06/11/25 09:24 98.2 68 16 134/84 (101) 97 98.2 06/11/25 08:56 97.9 76 18 99/70 97 97.9 X-Ray, Labs, Meds, VS Comment EXTERNAL MEDICAL RECORDS REVIEWED: [NONE] INDEPENDENT HISTORIANS: [NONE] SOCIAL DETERMINANTS OF HEALTH: [NONE] LABS ORDERED: UA, URINE CULTURE REVIEWED AND INTERPRETED RESULTS: PENDING IMAGING ORDERED: NONE TREATMENTS ORDERED: NONE PROCEDURES PERFORMED: NONE CRITICAL CARE TIME: NONE I HAVE DISCUSSED THE PATIENT WITH THE ATTENDING PHYSICIAN DR. COWAN AND HE AGREES WITH THE PATIENT'S PLAN OF CARE AND DISPOSITION. BASED ON HISTORY OF PRESENT ILLNESS, AND PHYSICAL EXAM, PATIENT WILL BE DISCHARGED HOME. DISCUSSED PLAN FOR DISCHARGE HOME WITH RX [KEFLEX]. MEDICATION WARNINGS GIVEN. SHARED DECISION MAKING: PATIENT INSTRUCTED TO FOLLOW UP WITH PRIMARY CARE PROVIDER IN 1-2 DAYS FOR RE-EVALUATION OF SYMPTOMS. PATIENT VERBALIZES UNDERSTANDING TO RETURN TO ED FOR NEW OR WORSENING SYMPTOMS OR IF FOLLOW UP WITH PCP CANNOT BE OBTAINED. PATIENT FEELS COMFORTABLE GOING HOME AT THIS TIME. ALL QUESTIONS ADDRESSED AT TIME OF DISCHARGE. Time of 1ST Reevaluation: 09:31 Reevaluation 1ST: Improved Patient Education/Counseling: Diagnosis, Treatment, Need For Follow Up Family Education/Counseling: Diagnosis, Treatment, Need For Follow Up Medical Screening: No EMC Exist At This Time SEPSIS Sepsis Screen Date sepsis recognized/suspect: Jun 11, 2025 Time Sepsis recognized/suspect: 0858 Recent Procedure: No On Antibiotic Therapy: No Respiratory Rate >20: No Heart Rate >90: No Temp<36 C (96.8 F) or >38.3 C: No SBP <90 or MAP <65 mmHG: No New Acute Mental Status Change: No Is the patient on CPAP, BIPAP,: No Physician Orders Urinalysis (06/11/25 09:26) Urine Bacterial Culture (06/11/25 09:26) Vital Signs Date Time Temp Pulse Resp B/P (MAP) Pulse Ox O2 Delivery O2 Flow Rate FiO2 06/11/25 09:24 84 16 97 Room Air 06/11/25 09:24 98.2 68 16 134/84 (101) 97 98.2 06/11/25 08:56 97.9 76 18 99/70 97 97.9 Departure 1 Departure Time of Disposition: 09:40 Impression: Primary Impression: Acute UTI (urinary tract infection) Disposition: 01 HOME / SELF CARE / HOMELESS Condition: Stable Additional Instructions: FOLLOW-UP WITH PCP IN 1 TO 2 DAYS. TAKE MEDICATIONS PRESCRIBED. RETURN TO ED FOR ANY NEW OR WORSENING SYMPTOMS. e-Prescriptions Cephalexin Monohydrate (Cephalexin) 500 Mg Cap 1 CAP PO QID, #40 CAP Prov: MARTINEZ HARO 06/11/25 Discharged With: Self, Relative Critical Care Note Critical Care Time?: No Stability Stability form required: No I personally scribed for MARTINEZ HARO ([email or web address]) on 06/11/25 at 09:29. Electronically submitted by Fei Estes ([email or web address]). MARTINEZ HARO Jun 11, 2025 09:29
== END 2025-06-11 09:30 | disposition home or self-care (01) ==
LOC: ER 08:49
DX: N39.0 Urinary tract infection, site not specified (principal); I10 Essential (primary) hypertension; E11.9 Type 2 diabetes mellitus without complications; E78.5 Hyperlipidemia, unspecified; I25.10 Atherosclerotic heart disease of native coronary artery without angina pectoris; Z79.899 Other long term (current) drug therapy; Z79.84 Long term (current) use of oral hypoglycemic drugs; Z87.440 Personal history of urinary (tract) infections; Z88.0 Allergy status to penicillin; Z88.1 Allergy status to other antibiotic agents; Z88.5 Allergy status to narcotic agent; Z88.6 Allergy status to analgesic agent; Z95.1 Presence of aortocoronary bypass graft

== ENCOUNTER 2025-07-10 08:26 | Emergency (ER) | payer MEDICAID ==
[~2025-07-10] VITALS: Ht 157.5 cm; Wt 110.0 kg
--- NOTE | 2025-07-10 08:49 | ED.PDOC ---
General HPI Comments A 60 YEAR OLD MALE PRESENTS TO THE ED WITH COMPLAINT OF UTI SYMPTOMS. PATIENT STATES HE HAS A HISTORY OF UTIS AND USES A MAIN CATHETER ON A DAILY BASIS AND HAS BEEN EXPERIENCING PAINFUL URINATION, BODY ACHES, AND CHILLS FOR THE PAST 2 WEEKS. PATIENT DENIES HEMATURIA, FLANK PAIN, FEVER, CHILLS, SHORTNESS OF BREATH, CHEST PAIN, ABDOMINAL PAIN, NAUSEA, VOMITING, HEADACHE, OR OTHER COMPLAINTS. NO OTHER SYMPTOMS OR MODIFYING FACTORS AT THIS TIME. PATIENT IS ALERT, ORIENTED X 4, AND HAS STEADY GAIT. Chief Complaint: Urinary Time Seen by MD: 08:32 Primary Care Provider: none Reviewed notes: Nurses Notes, Medications, Allergies Allergies: Coded Allergies: Amoxicillin (Verified Allergy, Severe, 11/26/21) Acetaminophen (Verified Allergy, Mild, EXCESSIVE SWEATING, 12/12/24) PATIENT STATES NORCO IS OK, NO REACTION Ciprofloxacin (Verified Allergy, Unknown, 07/04/23) Ibuprofen (Verified Allergy, Unknown, 07/04/23) Levofloxacin (Verified Allergy, Unknown, 11/24/24) Penicillins (Verified Adverse Reaction, Intermediate, 05/07/23) Hot Flashes/Feels Hot during administration Home Meds Active Scripts Sulfamethoxazole W/Trimethopri (Bactrim Ds Tablet) 1 Tab Tb, 1 TAB PO BID for 10 Days, #20 TAB Prov:MARTINEZ HARO 07/10/25 Cephalexin Monohydrate (Cephalexin) 500 Mg Cap, 1 CAP PO QID, #40 CAP Prov:MARTINEZ HARO 06/11/25 Phenazopyridine HCl (Phenazopyridine Hydrochlo) 200 Mg Tab, 200 MG PO BID PRN for 7 Days, #14 TAB Prov:VICENTE MURDOCK MD 05/16/25 Sulfamethoxazole W/Trimethopri (Bactrim Ds Tablet) 1 Tab Tb, 1 TAB PO BID for 14 Days, #28 TAB Prov:VICENTE MURDOCK MD 05/16/25 Cephalexin Monohydrate (Cephalexin) 500 Mg Cap, 1 CAP PO QID for 10 Days, #40 CAP 0 Refills Prov:SE ARCE NP 02/25/25 Sulfamethoxazole W/Trimethopri (Bactrim Ds Tablet) 1 Tab Tb, 1 TAB PO BID for 7 Days, #14 TAB 0 Refills Prov:SE ARCE NP 02/25/25 Diphenhydramine Hcl (BENADRYL CAPSULE) 25 Mg Cp, 25 MG PO DAILY PRN for 30 Days, #30 CAP 0 Refills Prov:MOIRA GRACE RESIDENT 12/01/24 Sennosides-Docusate Sodium (Senna Plus 50-8.6 mg) 1 Cap Cap, 1 CAP PO BID, #30 C AP Prov:MARTINEZ HARO 08/09/23 Enalapril Maleate (Enalapril Maleate) 20 Mg Tab, 1 TAB PO DAILY, #30 TAB 5 Refills Prov:THIEN BARKLEY MD 07/10/23 Reported Medications Enalapril Maleate (Enalapril Maleate) 2.5 Mg Tab, 20 MG PO HS for 30 Days, MG 12/11/24 Metoprolol Tartrate (Metoprolol Tartrate) 50 Mg Tab, 50 MG PO BID for 30 Days, MG 12/11/24 Atorvastatin Calcium (ATORVASTATIN CALCIUM) 40 Mg Tab, 1 TAB PO DAILY, #30 TAB 5 Refills 11/11/23 Ezetimibe (Zetia) 10 Mg Tab, 1 TAB PO DAILY, #30 TAB 5 Refills 05/05/23 Metformin Hydrochloride (Metformin Hcl) 500 Mg Tab, 1 TAB PO BID, #60 TAB 3 Refills 05/05/23 Ranolazine (Ranolazine ER) 1,000 Mg Tab, 500 MG PO TID, TAB 05/05/23 Information Source: Patient Mode of Arrival: Wheelchair Severity: Moderate Inability to void: None Timing: Weeks Duration: Since onset Prehospital treatment: None Onset: Spontaneous Symptoms: Dysuria History of: UTI Location: Suprapubic Penile discharge: None Modifying factors: None associated signs and symptoms: None Past Medical History PAST MEDICAL HISTORY: CAD, DM, High Lipids, HTN, [place], UTI'S Surgical History: CABG, PTCA Family History Family History: Reviewed,noncontributory to illness Social History Smoker: Non-Smoker Alcohol: Denies ETOH Use Drugs: Denies Drug Use Lives In: Home Constitutional: reports: chills; denies: diaphoresis, fatigue, fever, malaise, sweats, weakness, others EENTM: denies: blurred vision, double vision, ear bleeding, ear discharge, ear drainage, ear pain, ear ringing, eye pain, eye redness, hearing loss, mouth pain, mouth swelling, nasal discharge, nose bleeding, nose congestion, nose pain, photophobia, tearing, throat pain, throat swelling, voice changes, others Respiratory: denies: cough, hemoptysis, orthopnea, SOB at rest, shortness of breath, SOB with excertion, stridor, wheezing, others Cardiovascular: denies: chest pain, dizzy spells, diaphoresis, Dyspnea on exertion, edema, irregular heart beat, left arm pain, lightheadedness, palpitations, PND, syncope, others Gastrointestinal: denies: abdomen distended, abdominal pain, blood streaked bowels, constipated, diarrhea, dysphagia, difficulty swallowing, hematemesis, melena, nausea, poor appetite, poor fluid intake, rectal bleeding, rectal pain, vomiting, others Genitourinary: reports: burning, dysuria, pain (SUPRAPUBIC PRESSURE); denies: flank pain, frequency, hematuria, incontinence, penile discharge, penile sore, testicle pain, testicle swelling, urgency, others Neurological: denies: dizziness, fainting, headache, left sided numbness, left sided weakness, numbness, paresthesia, pre-existing deficit, right sided numbness, right sided weakness, seizure, speech problems, tingling, tremors, weakness, others Musculoskeletal: reports: back pain; denies: gout, joint pain, joint swelling, muscle pain, muscle stiffness, neck pain, others Integumetry: denies: bruises, change in color, change in hair/nails, dryness, laceration, lesions, lumps, rash, wounds, others Allergic/Immunocompromised: denies: Difficulty Healing, Frequent Infections, Hives, Itching, others Hematologic/Lymphatic: denies: anemia, blood clots, easy bleeding, easy bruising, swollen glands, others Endocrine: denies: excessive hunger, excessive sweating, excessive thirst, excessive urination, flushing, intolerance to cold, intolerance to heat, unexplained weight gain, unexplained weight loss, others Psychiatric: denies: anxiety, bipolar disorder, depression, hopeless, panic disorder, schizophrenia, sleepless, suicidal, others All Other Systems: Reviewed and Negative Physical Exam General Appearance: No Apparent Distress, Obese HEENT: Normal ENT Inspection, PERRL/EOMI, Pharynx Normal, TMs Normal Neck: Full Range of Motion, Non-Tender, Normal, Normal Inspection Respiratory: Chest Non-Tender, Lungs Clear, No Accessory Muscle Use, No Respiratory Distress, Normal Breath Sounds Cardiovascular: No Edema, No JVD, No Murmur, No Gallop, Normal Peripheral Pulses, Regular Rate/Rhythm Breast Exam: Deferred Gastrointestinal: No Organomegaly, Non Tender, No Pulsatile Mass, Normal Bowel Sounds, Soft, Suprapubic (PRESSURE. 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 Was a procedure done?: No Differential Diagnosis Kidney stone (Female): N/A Kidney stone (Male): N/A Penile/Scrotal: UTI Urinary Problem (Male): Urolithiasis, UTI Urinary Problem (Female): N/A X-Ray, Labs, Meds, VS Vital Signs Date Time Temp Pulse Resp B/P (MAP) Pulse Ox O2 Delivery O2 Flow Rate FiO2 07/10/25 08:30 97.6 79 18 148/63 95 97.6 Lab Test 07/10/25 08:46 Range/Units Urine Color Light-yellow Yellow Urine Clarity Turbid H Clear Urine pH 7.0 5.0-9.0 Urine Specific [place] 1.006 1.001-1.035 Urine Protein 1+ H Negative Urine Ketones Negative Negative Urine Blood 3+ H Negative /uL Urine Nitrite Negative Negative Urine Bilirubin Negative Negative Urine Urobilinogen Normal Negative mg/dL Urine Leukocyte Esterase 3+ Negative /uL Urine RBC 2 0 - 3 /hpf Urine Microscopic WBC 26 H 0-3 /HPF Urine Squamous Epithelial Cells Few <5 /hpf Urine Bacteria Few H None Seen /hpf Urine Glucose Normal Normal mg/dL X-Ray, Labs, Meds, VS Comment EXTERNAL MEDICAL RECORDS REVIEWED: [NONE] INDEPENDENT HISTORIANS: [NONE] SOCIAL DETERMINANTS OF HEALTH: [NONE] LABS ORDERED: UA REVIEWED AND INTERPRETED RESULTS: LEUKO 3+, BLOOD 3+ IMAGING ORDERED: NONE TREATMENTS ORDERED: ROCEPHIN 1 G IM PROCEDURES PERFORMED: NONE CRITICAL CARE TIME: NONE I HAVE DISCUSSED THE PATIENT WITH THE ATTENDING PHYSICIAN DR. AGUILAR AND HE AGREES WITH THE PATIENT'S PLAN OF CARE AND DISPOSITION. BASED ON HISTORY OF PRESENT ILLNESS, AND PHYSICAL EXAM, PATIENT WILL BE DISCHARGED HOME. DISCUSSED PLAN FOR DISCHARGE HOME WITH RX [SEPTRA DS]. MEDICATION WARNINGS GIVEN. SHARED DECISION MAKING: PATIENT INSTRUCTED TO FOLLOW UP WITH PRIMARY CARE PROVIDER IN 1-2 DAYS FOR RE-EVALUATION OF SYMPTOMS. PATIENT VERBALIZES UNDERSTANDING TO RETURN TO ED FOR NEW OR WORSENING SYMPTOMS OR IF FOLLOW UP WITH PCP CANNOT BE OBTAINED. PATIENT FEELS COMFORTABLE GOING HOME AT THIS TIME. ALL QUESTIONS ADDRESSED AT TIME OF DISCHARGE. Time of 1ST Reevaluation: 10:00 Reevaluation 1ST: Improved Patient Education/Counseling: Diagnosis, Treatment, Need For Follow Up Family Education/Counseling: Diagnosis, Treatment, Need For Follow Up Medical Screening: No EMC Exist At This Time SEPSIS Sepsis Screen Date sepsis recognized/suspect: Jul 10, 2025 Time Sepsis recognized/suspect: 830 Recent Procedure: No On Antibiotic Therapy: Yes Respiratory Rate >20: No Heart Rate >90: No Temp<36 C (96.8 F) or >38.3 C: No SBP <90 or MAP <65 mmHG: No New Acute Mental Status Change: No Is the patient on CPAP, BIPAP,: No Vital Signs Date Time Temp Pulse Resp B/P (MAP) Pulse Ox O2 Delivery O2 Flow Rate FiO2 07/10/25 08:30 97.6 79 18 148/63 95 97.6 Departure 1 Departure Time of Disposition: 10:00 Impression: Primary Impression: Acute UTI (urinary tract infection) Disposition: 01 HOME / SELF CARE / HOMELESS Condition: Stable Additional Instructions: FOLLOW-UP WITH PCP IN 1 TO 2 DAYS. TAKE MEDICATIONS PRESCRIBED. RETURN TO ED FOR ANY NEW OR WORSENING SYMPTOMS. e-Prescriptions Sulfamethoxazole W/Trimethopri (Bactrim Ds Tablet) 1 Tab Tb 1 TAB PO BID for 10 Days, #20 TAB Prov: MARTINEZ HARO 07/10/25 Discharged With: Self, Relative Critical Care Note Critical Care Time?: No Stability Stability form required: No I personally scribed for MARTINEZ HARO ([email or web address]) on 07/10/25 at 08:48. Electronically submitted by Fei Estes ([email or web address]). I personally scribed for MARTINEZ HARO ([email or web address]) on 07/10/25 at 09:33. Electronically submitted by Fei Estes ([email or web address]). MARTINEZ HARO Jul 10, 2025 08:48
[2025-07-10 09:07] LABS: Urine Protein, UAD 1+ (Negative)
[2025-07-10] MEDS ORDERED: BACDST PO (09:34)
[2025-07-10] MEDS: cefTRIAXone SOD 1,000 MG VL IM ONE (09:39)
[2025-07-10 09:43] VITALS: BP 149/70; PULSE 70; RESP 18; TEMP 98.5; O2SAT 94
== END 2025-07-10 09:44 | disposition home or self-care (01) ==
LOC: ER 08:26
DX: N39.0 Urinary tract infection, site not specified (principal); I10 Essential (primary) hypertension; E11.9 Type 2 diabetes mellitus without complications; I25.10 Atherosclerotic heart disease of native coronary artery without angina pectoris; I25.2 Old myocardial infarction; E78.5 Hyperlipidemia, unspecified; Z95.1 Presence of aortocoronary bypass graft; Z88.5 Allergy status to narcotic agent; Z88.0 Allergy status to penicillin; Z87.440 Personal history of urinary (tract) infections; Z79.84 Long term (current) use of oral hypoglycemic drugs; Z79.899 Other long term (current) drug therapy; Z88.1 Allergy status to other antibiotic agents; Z88.6 Allergy status to analgesic agent
CPT/HCPCS: 81001; 96372; 99283; J0696

== ENCOUNTER 2025-07-22 09:43 | Emergency (ER) | payer MEDICAID ==
[~2025-07-22] VITALS: Ht 157.5 cm; Wt 110.0 kg
--- NOTE | 2025-07-22 10:30 | ED.PDOC ---
General HPI Comments A 60 YEAR OLD FEMALE PRESENTS TO THE ED WITH COMPLAINT OF URINARY COMPLAINT. PT IS PARAPLEGIC AND HAD MAIN CATHETER PLACED 5X DAYS PRIOR AT [facility]. PT STATES HE NOTICED BLOOD IN CATHETER YESTERDAY BUT HAS SINCE RESOLVED BUT STATES HE OFTEN GETS FREQUENT UTI'S AND CAME TODAY FOR PREVENTATIVE MEASURES. PATIENT DENIES FEVER, CHILLS, SHORTNESS OF BREATH, CHEST PAIN, ABDOMINAL PAIN, NAUSEA, VOMITING, HEADACHE, OR OTHER COMPLAINTS. NO OTHER SYMPTOMS OR MODIFYING FACTORS AT THIS TIME. PATIENT IS ALERT, ORIENTED X 4, AND HAS STEADY GAIT. Chief Complaint: Urinary Time Seen by MD: 10:23 Primary Care Provider: none Reviewed notes: Medications, Allergies Allergies: Coded Allergies: Amoxicillin (Verified Allergy, Severe, 11/26/21) Acetaminophen (Verified Allergy, Mild, EXCESSIVE SWEATING, 12/12/24) PATIENT STATES NORCO IS OK, NO REACTION Ciprofloxacin (Verified Allergy, Unknown, 07/04/23) Ibuprofen (Verified Allergy, Unknown, 07/04/23) Levofloxacin (Verified Allergy, Unknown, 11/24/24) Penicillins (Verified Adverse Reaction, Intermediate, 05/07/23) Hot Flashes/Feels Hot during administration Home Meds Active Scripts Sulfamethoxazole W/Trimethopri (Bactrim Ds Tablet) 1 Tab Tb, 1 TAB PO BID for 10 Days, #20 TAB Prov:MARTINEZ HARO 07/22/25 Phenazopyridine HCl (Phenazopyridine Hydrochlo) 200 Mg Tab, 200 MG PO BID PRN for 7 Days, #6 TAB Prov:MARTINEZ HARO 07/22/25 Cephalexin Monohydrate (Cephalexin) 500 Mg Cap, 1 CAP PO QID, #40 CAP Prov:MARTINEZ HARO 06/11/25 Sulfamethoxazole W/Trimethopri (Bactrim Ds Tablet) 1 Tab Tb, 1 TAB PO BID for 14 Days, #28 TAB Prov:VICENTE MURDOCK MD 05/16/25 Cephalexin Monohydrate (Cephalexin) 500 Mg Cap, 1 CAP PO QID for 10 Days, #40 CAP 0 Refills Prov:SE ARCE NP 02/25/25 Sulfamethoxazole W/Trimethopri (Bactrim Ds Tablet) 1 Tab Tb, 1 TAB PO BID for 7 Days, #14 TAB 0 Refills Prov:SE ARCE NP 02/25/25 Diphenhydramine Hcl (BENADRYL CAPSULE) 25 Mg Cp, 25 MG PO DAILY PRN for 30 Days, #30 CAP 0 Refills Prov:MOIRA GRACE RESIDENT 12/01/24 Sennosides-Docusate Sodium (Senna Plus 50-8.6 mg) 1 Cap Cap, 1 CAP PO BID, #30 CAP Prov:MARTINEZ HARO 08/09/23 Enalapril Maleate (Enalapril Maleate) 20 Mg Tab, 1 TAB PO DAILY, #30 TAB 5 Refills Prov:THIEN BARKLEY MD 07/10/23 Reported Medications Enalapril Maleate (Enalapril Maleate) 2.5 Mg Tab, 20 MG PO HS for 30 Days, MG 12/11/24 Metoprolol Tartrate (Metoprolol Tartrate) 50 Mg Tab, 50 MG PO BID for 30 Days, MG 12/11/24 Atorvastatin Calcium (ATORVASTATIN CALCIUM) 40 Mg Tab, 1 TAB PO DAILY, #30 TAB 5 Refills 11/11/23 Ezetimibe (Zetia) 10 Mg Tab, 1 TAB PO DAILY, #30 TAB 5 Refills 05/05/23 Metformin Hydrochloride (Metformin Hcl) 500 Mg Tab, 1 TAB PO BID, #60 TAB 3 Refills 05/05/23 Ranolazine (Ranolazine ER) 1,000 Mg Tab, 500 MG PO TID, TAB 05/05/23 Information Source: Patient, Relative Mode of Arrival: Wheelchair Severity: Mild Inability to void: Mild Timing: Days Duration: Since onset, Days Prehospital treatment: None Symptoms: None History of: UTI Location: None Penile discharge: None Modifying factors: None associated signs and symptoms: None Past Medical History PAST MEDICAL HISTORY: CAD, DM, High Lipids, HTN, [place], UTI'S Past Medical History (Other): PARAPLEGIC Surgical History: CABG, PTCA Family History Family History: Reviewed,noncontributory to illness Social History Smoker: Non-Smoker Alcohol: Denies ETOH Use Drugs: Denies Drug Use Lives In: Home Constitutional: denies: chills, diaphoresis, fatigue, fever, malaise, sweats, weakness, others EENTM: denies: blurred vision, double vision, ear bleeding, ear discharge, ear drainage, ear pain, ear ringing, eye pain, eye redness, hearing loss, mouth pain, mouth swelling, nasal discharge, nose bleeding, nose congestion, nose pain, photophobia, tearing, throat pain, throat swelling, voice changes, others Respiratory: denies: cough, hemoptysis, orthopnea, SOB at rest, shortness of breath, SOB with excertion, stridor, wheezing, others Cardiovascular: denies: chest pain, dizzy spells, diaphoresis, Dyspnea on exertion, edema, irregular heart beat, left arm pain, lightheadedness, palpitations, PND, syncope, others Gastrointestinal: denies: abdomen distended, abdominal pain, blood streaked bowels, constipated, diarrhea, dysphagia, difficulty swallowing, hematemesis, melena, nausea, poor appetite, poor fluid intake, rectal bleeding, rectal pain, vomiting, others Genitourinary: reports: burning; denies: dysuria, flank pain, frequency, hematuria, incontinence, penile discharge, penile sore, pain, testicle pain, testicle swelling, urgency, others Neurological: denies: dizziness, fainting, headache, left sided numbness, left sided weakness, numbness, paresthesia, pre-existing deficit, right sided numbness, right sided weakness, seizure, speech problems, tingling, tremors, weakness, others Musculoskeletal: denies: back pain, gout, joint pain, joint swelling, muscle pain, muscle stiffness, neck pain, others Integumetry: denies: bruises, change in color, change in hair/nails, dryness, laceration, lesions, lumps, rash, wounds, others Allergic/Immunocompromised: denies: Difficulty Healing, Frequent Infections, Hives, Itching, others Hematologic/Lymphatic: denies: anemia, blood clots, easy bleeding, easy bruising, swollen glands, others Endocrine: denies: excessive hunger, excessive sweating, excessive thirst, excessive urination, flushing, intolerance to cold, intolerance to heat, unexplained weight gain, unexplained weight loss, others Psychiatric: denies: anxiety, bipolar disorder, depression, hopeless, panic disorder, schizophrenia, sleepless, suicidal, others All Other Systems: Reviewed and Negative Physical Exam General Appearance: No Apparent Distress, Normal HEENT: Normal ENT Inspection, PERRL/EOMI, Pharynx Normal, TMs Normal Neck: Full Range of Motion, Non-Tender, Normal, Normal Inspection Respiratory: Chest Non-Tender, Lungs Clear, No Accessory Muscle Use, No Respiratory Distress, Normal Breath Sounds Cardiovascular: No Edema, No JVD, No Murmur, No Gallop, Normal Peripheral Pulses, Regular Rate/Rhythm Breast Exam: Deferred Gastrointestinal: No Organomegaly, Non Tender, No Pulsatile Mass, Normal Bowel Sounds, Soft Genitalia: Deferred Pelvic: Deferred Rectal: Deferred Extremities: No calf tenderness, Normal capillary refill, Normal inspection, Normal range of motion, Non-tender, No pedal edema Musculoskeletal : Apperance: Normal Neurologic: Alert, filer helper II-XII 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 Was a procedure done?: No Differential Diagnosis Kidney stone (Female): N/A Kidney stone (Male): N/A Penile/Scrotal: N/A Urinary Problem (Male): Bladder Outlet, Bladder Obstruction, Urethritis, UTI, Other (MAIN CATHETER CARE) X-Ray, Labs, Meds, VS Vital Signs Date Time Temp Pulse Resp B/P (MAP) Pulse Ox O2 Delivery O2 Flow Rate FiO2 07/22/25 11:54 90 18 98 Room Air 07/22/25 11:54 97.8 90 18 125/71 (89) 98 97.8 07/22/25 09:45 97.8 90 18 125/71 98 97.8 Lab Test 07/22/25 10:15 Range/Units Urine Color Colorless Yellow Urine Clarity Turbid H Clear Urine pH 6.0 5.0-9.0 Urine Specific [place] 1.009 1.001-1.035 Urine Protein 1+ H Negative Urine Ketones Negative Negative Urine Blood 3+ H Negative /uL Urine Nitrite Negative Negative Urine Bilirubin Negative Negative Urine Urobilinogen Normal Negative mg/dL Urine Leukocyte Esterase 2+ Negative /uL Urine Glucose 1+ H Normal mg/dL X-Ray, Labs, Meds, VS Comment COURSE: EXTERNAL MEDICAL RECORDS REVIEWED: [NONE] INDEPENDENT HISTORIANS: [NONE] SOCIAL DETERMINANTS OF HEALTH: [NONE] LABS ORDERED: URINALYSIS REVIEWED AND INTERPRETED RESULTS: MILD UTI IMAGING ORDERED: NONE TREATMENTS ORDERED: PROCEDURES PERFORMED: NONE CRITICAL CARE TIME: NONE I HAVE DISCUSSED THE PATIENT WITH THE ATTENDING PHYSICIAN, DR. COWAN, HE AGREES WITH THE PATIENT'S PLAN OF CARE AND DISPOSITION. BASED ON HISTORY OF PRESENT ILLNESS, AND PHYSICAL EXAM, PATIENT WILL BE DISCHARGED HOME. DISCUSSED PLAN FOR DISCHARGE HOME WITH RX [[facility]PTRA DS*]. MEDICATION WARNINGS GIVEN. SHARED DECISION MAKING: DISCUSSED WITH PATIENT THAT THEIR WORKUP WAS NORMAL. PATIENT INSTRUCTED TO FOLLOW UP WITH PRIMARY CARE PROVIDER IN 1-2 DAYS FOR RE-EVALUATION OF SYMPTOMS. PATIENT VERBALIZES UNDERSTANDING TO RETURN TO ED FOR NEW OR WORSENING SYMPTOMS OR IF FOLLOW UP WITH PCP CANNOT BE OBTAINED. PATIENT FEELS COMFORTABLE GOING HOME AT THIS TIME. ALL QUESTIONS ADDRESSED AT TIME OF DISCHARGE. Time of 1ST Reevaluation: 11:00 Reevaluation 1ST: Improved Patient Education/Counseling: Diagnosis, Treatment, Need For Follow Up Family Education/Counseling: Diagnosis, Treatment, Need For Follow Up Medical Screening: No EMC Exist At This Time SEPSIS Sepsis Screen Date sepsis recognized/suspect: Jul 22, 2025 Time Sepsis recognized/suspect: 944 Recent Procedure: No Respiratory Rate >20: No Heart Rate >90: No Temp<36 C (96.8 F) or >38.3 C: No SBP <90 or MAP <65 mmHG: No New Acute Mental Status Change: No Is the patient on CPAP, BIPAP,: No Vital Signs Date Time Temp Pulse Resp B/P (MAP) Pulse Ox O2 Delivery O2 Flow Rate FiO2 07/22/25 11:54 90 18 98 Room Air 07/22/25 11:54 97.8 90 18 125/71 (89) 98 97.8 07/22/25 09:45 97.8 90 18 125/71 98 97.8 Departure 1 Departure Time of Disposition: 12:00 Impression: Primary Impression: Urinary tract infection Qualified Codes: T83.511A - Infection and inflammatory reaction due to indwelling urethral catheter, initial encounter; N39.0 - Urinary tract infection, site not specified Disposition: 01 HOME / SELF CARE / HOMELESS Condition: Stable Additional Instructions: INSTRUCTIONS: FOLLOW-UP WITH PCP IN 1 TO 2 DAYS. TAKE MEDICATIONS PRESCRIBED. RETURN TO ED FOR ANY NEW OR WORSENING SYMPTOMS. e-Prescriptions Sulfamethoxazole W/Trimethopri (Bactrim Ds Tablet) 1 Tab Tb 1 TAB PO BID for 10 Days, #20 TAB Prov: MARTINEZ HARO 07/22/25 Phenazopyridine HCl (Phenazopyridine Hydrochlo) 200 Mg Tab 200 MG PO BID PRN for 7 Days, #6 TAB Prov: MARTINEZ HARO 07/22/25 Discharged With: Self Critical Care Note Critical Care Time?: No Stability Stability form required: No Heart Score Heart Score: Heart Score Response (Comments) Value History N/A 0 EKG N/A 0 Age N/A 0 Risk Factors N/A 0 Troponin N/A 0 Total 0 I personally scribed for MARTINEZ HARO ([email or web address]) on 07/22/25 at 10:30. Electronically submitted by Juliano Bowman ([email or web address]). MARTINEZ HARO Jul 22, 2025 10:30
[2025-07-22 11:26] LABS: Urine Protein, UAD 1+ (Negative)
[2025-07-22] MEDS ORDERED: PHEN-922 PO (11:50)
[2025-07-22 11:54] VITALS: BP 125/71; PULSE 90; RESP 18; TEMP 97.8; O2SAT 98
== END 2025-07-22 11:55 | disposition home or self-care (01) ==
LOC: ER 09:43
DX: N39.0 Urinary tract infection, site not specified (principal); I25.10 Atherosclerotic heart disease of native coronary artery without angina pectoris; E11.9 Type 2 diabetes mellitus without complications; I10 Essential (primary) hypertension; Z95.1 Presence of aortocoronary bypass graft; Z88.6 Allergy status to analgesic agent; Z88.5 Allergy status to narcotic agent; Z88.1 Allergy status to other antibiotic agents; Z88.0 Allergy status to penicillin; Z79.899 Other long term (current) drug therapy
CPT/HCPCS: 81003

== ENCOUNTER 2025-08-16 09:42 | Inpatient (IN) | payer MEDICAID ==
[~2025-08-16] VITALS: Ht 157.5 cm; Wt 46.2 kg
[2025-08-16 10:14] LABS: Urine Protein, UAD TRACE (Negative)
--- NOTE | 2025-08-16 11:08 | ED.PDOC ---
General HPI Comments 60 y/o M , with PMHx of CAD, DM, HLD, HTN, [place], and UTI's presents to the ED for CC dysuria. Patient states, he has been experiencing symptoms of burning with urination with associated cloudy urine x5days. Patient reports, that he was recently admitted for SS and was D/C home with Bactrim Abx however, symptoms have persisted. Upon arrival to the ED, patient's Patel Catheter is noted to be draining clear yellow urine. Patient denies hematuria, fever, nausea, vomiting, frequency, or urgency. No other symptoms or modifying factors are present at this time. Chief Complaint: Urinary Time Seen by MD: 10:45 Primary Care Provider: none Reviewed notes: Nurses Notes, Medications, Allergies Allergies: Coded Allergies: Amoxicillin (Verified Allergy, Severe, 11/26/21) Acetaminophen (Verified Allergy, Mild, EXCESSIVE SWEATING, 12/12/24) PATIENT STATES NORCO IS OK, NO REACTION Ciprofloxacin (Verified Allergy, Unknown, 07/04/23) Ibuprofen (Verified Allergy, Unknown, 07/04/23) Levofloxacin (Verified Allergy, Unknown, 11/24/24) Penicillins (Verified Adverse Reaction, Intermediate, 05/07/23) Hot Flashes/Feels Hot during administration Home Meds Active Scripts Sulfamethoxazole W/Trimethopri (Bactrim Ds Tablet) 1 Tab Tb, 1 TAB PO BID for 10 Days, #20 TAB Prov:MARTINEZ HARO 07/22/25 Phenazopyridine HCl (Phenazopyridine Hydrochlo) 200 Mg Tab, 200 MG PO BID PRN for 7 Days, #6 TAB Prov:MARTINEZ HARO 07/22/25 Cephalexin Monohydrate (Cephalexin) 500 Mg Cap, 1 CAP PO QID, #40 CAP Prov:MARTINEZ HARO 06/11/25 Sulfamethoxazole W/Trimethopri (Bactrim Ds Tablet) 1 Tab Tb, 1 TAB PO BID for 14 Days, #28 TAB Prov:VICENTE MURDOCK MD 05/16/25 Cephalexin Monohydrate (Cephalexin) 500 Mg Cap, 1 CAP PO QID for 10 Days, #40 CAP 0 Refills Prov:SE ARCE SALES AND MERCHANDISING REPRESENTATIVE 02/25/25 Sulfamethoxazole W/Trimethopri (Bactrim Ds Tablet) 1 Tab Tb, 1 TAB PO BID for 7 Days, #14 TAB 0 Refills Prov:SE ARCE SALES AND MERCHANDISING REPRESENTATIVE 02/25/25 Diphenhydramine Hcl (BENADRYL CAPSULE) 25 Mg Cp, 25 MG PO DAILY PRN for 30 Days, #30 CAP 0 Refills Prov:MOIRA GRACE RESIDENT 12/01/24 Sennosides-Docusate Sodium (Senna Plus 50-8.6 mg) 1 Cap Cap, 1 CAP PO BID, #30 CAP Prov:MARTINEZ HARO 08/09/23 Enalapril Maleate (Enalapril Maleate) 20 Mg Tab, 1 TAB PO DAILY, #30 TAB 5 Refills Prov:THIEN BARKLEY MD 07/10/23 Reported Medications Enalapril Maleate (Enalapril Maleate) 2.5 Mg Tab, 20 MG PO HS for 30 Days, MG 12/11/24 Metoprolol Tartrate (Metoprolol Tartrate) 50 Mg Tab, 50 MG PO BID for 30 Days, MG 12/11/24 Atorvastatin Calcium (ATORVASTATIN CALCIUM) 40 Mg Tab, 1 TAB PO DAILY, #30 TAB 5 Refills 11/11/23 Ezetimibe (Zetia) 10 Mg Tab, 1 TAB PO DAILY, #30 TAB 5 Refills 05/05/23 Metformin Hydrochloride (Metformin Hcl) 500 Mg Tab, 1 TAB PO BID, #60 TAB 3 Refills 05/05/23 Ranolazine (Ranolazine ER) 1,000 Mg Tab, 500 MG PO TID, TAB 05/05/23 Information Source: Patient Mode of Arrival: Wheelchair Severity: Moderate Inability to void: None Timing: Days Duration: Since onset Prehospital treatment: None Onset: Spontaneous Symptoms: Dysuria History of: UTI Penile discharge: None Modifying factors: None associated signs and symptoms: Dysuria Past Medical History PAST MEDICAL HISTORY: CAD, DM, High Lipids, HTN, [place], UTI'S Surgical History: CABG, PTCA Family History Family History: Reviewed,noncontributory to illness Social History Smoker: Non-Smoker Alcohol: Denies ETOH Use Drugs: Denies Drug Use Lives In: Home Constitutional: denies: chills, diaphoresis, fatigue, fever, malaise, sweats, weakness, others EENTM: denies: blurred vision, double vision, ear bleeding, ear discharge, ear drainage, ear pain, ear ringing, eye pain, eye redness, hearing loss, mouth pain, mouth swelling, nasal discharge, nose bleeding, nose congestion, nose pain, photophobia, tearing, throat pain, throat swelling, voice changes, others Respiratory: denies: cough, hemoptysis, orthopnea, SOB at rest, shortness of breath, SOB with excertion, stridor, wheezing, others Cardiovascular: denies: chest pain, dizzy spells, diaphoresis, Dyspnea on exertion, edema, irregular heart beat, left arm pain, lightheadedness, palpi tations, PND, syncope, others Gastrointestinal: denies: abdomen distended, abdominal pain, blood streaked bowels, constipated, diarrhea, dysphagia, difficulty swallowing, hematemesis, melena, nausea, poor appetite, poor fluid intake, rectal bleeding, rectal pain, vomiting, others Genitourinary: reports: dysuria; denies: burning, flank pain, frequency, hematuria, incontinence, penile discharge, penile sore, pain, testicle pain, testicle swelling, urgency, others Neurological: denies: dizziness, fainting, headache, left sided numbness, left sided weakness, numbness, paresthesia, pre-existing deficit, right sided numbness, right sided weakness, seizure, speech problems, tingling, tremors, weakness, others Musculoskeletal: denies: back pain, gout, joint pain, joint swelling, muscle pain, muscle stiffness, neck pain, others Integumetry: denies: bruises, change in color, change in hair/nails, dryness, laceration, lesions, lumps, rash, wounds, others Allergic/Immunocompromised: denies: Difficulty Healing, Frequent Infections, Hives, Itching, others Hematologic/Lymphatic: denies: anemia, blood clots, easy bleeding, easy bruising, swollen glands, others Endocrine: denies: excessive hunger, excessive sweating, excessive thirst, excessive urination, flushing, intolerance to cold, intolerance to heat, unexplained weight gain, unexplained weight loss, others Psychiatric: denies: anxiety, bipolar disorder, depression, hopeless, panic d isorder, schizophrenia, sleepless, suicidal, others All Other Systems: Reviewed and Negative Physical Exam General Appearance: Moderate Distress HEENT: Normal ENT Inspection, Pharynx Normal, TMs Normal Neck: Full Range of Motion, Non-Tender, Normal, Normal Inspection Respiratory: Chest Non-Tender, Lungs Clear, No Accessory Muscle Use, No Respiratory Distress, Normal Breath Sounds Cardiovascular: No Edema, No JVD, No Murmur, No Gallop, Normal Peripheral Pulses, Regular Rate/Rhythm Breast Exam: Deferred Gastrointestinal: No Organomegaly, Non Tender, No Pulsatile Mass, Normal Bowel Sounds, Soft Genitalia: Deferred Pelvic: Deferred Rectal: Deferred Extremities: No calf tenderness, No pedal edema Musculoskeletal : Apperance: Normal Neurologic: Alert Cerebellar Function: NOT DONE Reflexes: Normal Skin: Normal Color Peripheral Pulses: 3+ Radial (R), 3+ Radial (L) Lymphatic: No Adenopathy Was a procedure done? Was a procedure done?: No Differential Diagnosis Kidney stone (Female): Musculoskeletal pain, Urinary obstruction, Urolithiasis Kidney stone (Male): Urinary obstruction, Urolithiasis, Urinary tract infection X-Ray, Labs, Meds, VS Vital Signs Date Time Temp Pulse Resp B/P (MAP) Pulse Ox O2 Delivery O2 Flow Rate FiO2 08/16/25 11:59 97.9 58 18 94/43 (60) 98 97.9 08/16/25 10:34 97.8 75 18 139/56 (83) 98 97.8 08/16/25 10:34 75 18 97 Room Air 08/16/25 09:46 98.6 88 15 112/71 95 98.6 Lab Test 08/16/25 10:06 Range/Units Urine Color Light-yellow Yellow Urine Clarity Cloudy H Clear Urine pH 5.5 5.0-9.0 Urine Specific [place] 1.011 1.001-1.035 Urine Protein Trace H Negative Urine Ketones Negative Negative Urine Blood 1+ H Negative /uL Urine Nitrite 1+ H Negative Urine Bilirubin Negative Negative Urine Urobilinogen Normal Negative mg/dL Urine Leukocyte Esterase 3+ Negative /uL Urine RBC 8 0 - 3 /hpf Urine Microscopic WBC 206 H 0-3 /HPF Urine Squamous Epithelial Cells Few <5 /hpf Urine Bacteria Mod H None Seen /hpf Urine Glucose Normal Normal mg/dL Patient alert. Complaining of burning on urination. He is paraplegic. Vitals stable. Answering questions. UA shows UTI. He will need intravenous antibiotics. Reviewed his previous visit. Explained to the patient. Continue monitoring. Time of 1ST Reevaluation: 11:15 Reevaluation 1ST: Unchanged Patient Education/Counseling: Diagnosis, Treatment Family Education/Counseling: Diagnosis, Treatment SEPSIS Sepsis Screen Date sepsis recognized/suspect: Aug 16, 2025 Time Sepsis recognized/suspect: 947 Recent Procedure: No On Antibiotic Therapy: No Respiratory Rate >20: No Heart Rate >90: No Temp<36 C (96.8 F) or >38.3 C: No SBP <90 or MAP <65 mmHG: No New Acute Mental Status Change: No Is the patient on CPAP, BIPAP,: No Physician Orders Complete Blood Count (08/16/25 11:47) Basic Metabolic Panel (08/16/25 11:47) Vital Signs Date Time Temp Pulse Resp B/P (MAP) Pulse Ox O2 Delivery O2 Flow Rate FiO2 08/16/25 11:59 97.9 58 18 94/43 (60) 98 97.9 08/16/25 10:34 97.8 75 18 139/56 (83) 98 97.8 08/16/25 10:34 75 18 97 Room Air 08/16/25 09:46 98.6 88 15 112/71 95 98.6 Departure 1 Departure Time of Disposition: 12:10 Impression: Primary Impression: Sepsis due to urinary tract infection Disposition: ADMITTED INPATIENT Admit to: Med Surg Condition: Guarded Critical Care Note Critical Care Time?: No Stability Stability form required: No Heart Score Heart Score: Heart Score Response (Comments) Value History N/A 0 EKG N/A 0 Age N/A 0 Risk Factors N/A 0 Troponin N/A 0 Total 0 I personally scribed for RAMBO AGUILAR MD ([email or web address]) on 08/16/25 at 11:08. Electronically submitted by Angeles Gonzalez ([email or web address]). RAMBO AGUILAR MD Aug 16, 2025 11:08
[2025-08-16 12:42] LABS: Hematocrit 39.8 % (41.0-53.0); Hemoglobin 13.2 g/dL (13.5-17.5); Mean Corpuscular Hemoglobin 30.2 pg (28.0-32.0); Mean Corpuscular Volume 90.8 fL (80.0-100.0); Nucleated Red Blood Cells % 0.1 %
[2025-08-16 12:44] LABS: Chloride 103 mmol/L (98-107); Potassium 4.5 mmol/L (3.5-5.1)
[2025-08-16 12:45] LABS: Anion Gap 10 (5-15); Carbon Dioxide 21 mmol/L (20-31)
[2025-08-16 12:46] LABS: Calcium 9.5 mg/dL (8.7-10.4)
[2025-08-16 12:50] LABS: BUN/Creatinine Ratio 20.5 (10.0-20.0); Sodium 134 mmol/L (136-145)
[2025-08-16 12:51] LABS: Blood Urea Nitrogen 9 mg/dL (9-23); Glucose 107 mg/dL (74-106)
[2025-08-16] MEDS: MEROPENEM 1GM IVPB 50 ML IV ONE (12:58)
[2025-08-16] MEDS ORDERED: ACETAMINOPHEN 325 MG TAB PO PRN (13:45)
[2025-08-16 14:17] VITALS: PULSE 62; RESP 13; O2SAT 97
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
[2025-08-16 15:01] VITALS: BP 136/50; PULSE 67; RESP 20; TEMP 98.8; O2SAT 97
[2025-08-16 15:05] VITALS: BP 136/56; PULSE 67; RESP 20; TEMP 98.8; O2SAT 97
[2025-08-16] MEDS: SODIUM CHLORIDE 0.9% 1,000 ML IV SCH (16:49)
[2025-08-16 17:40] VITALS: BP 139/51; PULSE 64; RESP 20; TEMP 98.2; O2SAT 97
[2025-08-16 20:00] VITALS: RESP 18
[2025-08-16 21:00] VITALS: BP 109/51; PULSE 78; RESP 18; TEMP 97.8; O2SAT 97
[2025-08-16] MEDS: MEROPENEM 1GM IVPB 50 ML IV SCH (21:29)
[2025-08-16] MEDS: ATORVASTATIN 20 MG TAB PO SCH (21:29)
[2025-08-16] MEDS: RANOLAZINE ER 500 MG TAB PO SCH (21:29)
[2025-08-16] MEDS: METOPROLOL TARTRATE 50 MG TAB PO SCH (21:29)
[2025-08-16] MEDS: ENALAPRIL MALEATE 10 MG TAB PO SCH (21:30)
[2025-08-17] VITALS (9 sets, daily range): BP systolic 105–133; BP diastolic 50–80; PULSE 68–89; RESP 16–18; TEMP 96.6–98.6; O2SAT 97–99
[2025-08-17 05:47] LABS: Hematocrit 37.1 % (41.0-53.0); Hemoglobin 12.5 g/dL (13.5-17.5); Mean Corpuscular Hemoglobin 30.4 pg (28.0-32.0); Mean Corpuscular Volume 90.6 fL (80.0-100.0); Nucleated Red Blood Cells % 0.0 %
[2025-08-17 06:14] LABS: Alanine Aminotransferase 23 U/L (7-40); Alkaline Phosphatase 102 U/L (46-116); Anion Gap 9 (5-15); BUN/Creatinine Ratio 28.6 (10.0-20.0); Blood Urea Nitrogen 10 mg/dL (9-23); Calcium 9.3 mg/dL (8.7-10.4); Carbon Dioxide 23 mmol/L (20-31); Chloride 101 mmol/L (98-107); Potassium 4.1 mmol/L (3.5-5.1); Total Protein 6.5 g/dL (5.7-8.2)
[2025-08-17 06:15] LABS: Albumin 3.9 g/dL (3.2-4.8); Bilirubin, Total 0.5 mg/dL (0.2-1.0)
[2025-08-17 06:21] LABS: Glucose 117 mg/dL (74-106); Sodium 133 mmol/L (136-145)
[2025-08-17] MEDS ORDERED: DEXTROSE (50%) 50ML SYRG IV PRN ×2 (08:45→12:45)
[2025-08-17] MEDS ORDERED: PATIENTS OWN MEDICATION (Enalapril Maleate 1 TAB) PO SCH (10:00)
[2025-08-17] MEDS: EZETIMIBE 10 MG TAB PO SCH (10:16)
[2025-08-17] MEDS: ENOXAPARIN SOD 40 MG/0.4 ML SYRINGE SC SCH (10:16)
[2025-08-17] MEDS ORDERED: ACCU-CHEK COMFORT CURVE STRIP VI SCH (11:30)
[2025-08-17] MEDS ORDERED: InsuLIN REG 1unit/0.01ml Soln (100units/ml) SC SCH (11:30)
[2025-08-17] MEDS: ACCU-CHEK COMFORT CURVE STRIP VI SCH ×2 (12:00→17:11)
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
[2025-08-17] MEDS: InsuLIN REG 1unit/0.01ml Soln (100units/ml) SC SCH (17:10)
[2025-08-17] MEDS: PANTOPRAZOLE 40 MG TAB PO ONE (17:11)
[2025-08-18] VITALS (8 sets, daily range): BP systolic 102–141; BP diastolic 45–61; PULSE 61–70; RESP 17–18; TEMP 98.2–99.4; O2SAT 95–99
[2025-08-18] MEDS: PANTOPRAZOLE 40 MG TAB PO SCH (05:56)
[2025-08-18 06:48] LABS: Hematocrit 36.0 % (41.0-53.0); Hemoglobin 12.1 g/dL (13.5-17.5); Mean Corpuscular Hemoglobin 30.7 pg (28.0-32.0); Mean Corpuscular Volume 90.9 fL (80.0-100.0); Nucleated Red Blood Cells % 0.1 %
[2025-08-18 06:52] LABS: Chloride 103 mmol/L (98-107); Potassium 4.0 mmol/L (3.5-5.1); Sodium 137 mmol/L (136-145)
[2025-08-18 06:53] LABS: Anion Gap 8 (5-15); Carbon Dioxide 26 mmol/L (20-31)
[2025-08-18 06:54] LABS: Calcium 8.9 mg/dL (8.7-10.4)
[2025-08-18 06:59] LABS: BUN/Creatinine Ratio 17.1 (10.0-20.0)
[2025-08-18 07:02] LABS: Blood Urea Nitrogen 7 mg/dL (9-23); Glucose 121 mg/dL (74-106)
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
[2025-08-19] VITALS (7 sets, daily range): BP systolic 106–153; BP diastolic 32–94; PULSE 56–77; RESP 16–18; TEMP 97.5–99; O2SAT 94–99
[2025-08-19 06:10] LABS: Hematocrit 36.7 % (41.0-53.0); Hemoglobin 12.4 g/dL (13.5-17.5); Mean Corpuscular Hemoglobin 30.7 pg (28.0-32.0); Mean Corpuscular Volume 91.3 fL (80.0-100.0); Nucleated Red Blood Cells % 0.1 %
[2025-08-19 06:16] LABS: Anion Gap 10 (5-15); Carbon Dioxide 25 mmol/L (20-31); Chloride 100 mmol/L (98-107); Potassium 4.0 mmol/L (3.5-5.1)
[2025-08-19 06:17] LABS: Calcium 9.0 mg/dL (8.7-10.4)
[2025-08-19 06:23] LABS: BUN/Creatinine Ratio 16.7 (10.0-20.0)
[2025-08-19 06:24] LABS: Blood Urea Nitrogen 8 mg/dL (9-23); Glucose 125 mg/dL (74-106); Sodium 135 mmol/L (136-145)
[2025-08-19] MEDS: FUROSEMIDE 40 MG/4 ML VIAL IV ONE (11:24)
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
[2025-08-20 01:00] VITALS: BP 103/58; PULSE 76; RESP 19; TEMP 98.1; O2SAT 100
[2025-08-20 05:00] VITALS: BP 104/59; PULSE 86; RESP 17; TEMP 98; O2SAT 100
[2025-08-20 09:00] VITALS: BP 137/74; PULSE 90; RESP 18; TEMP 98.2; O2SAT 96
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
[2025-08-20 13:00] VITALS: BP 99/61; PULSE 75; RESP 18; TEMP 98.1; O2SAT 97
[2025-08-20 17:00] VITALS: BP 110/63; PULSE 65; RESP 18; TEMP 98.1; O2SAT 95
[2025-08-20 20:32] VITALS: BP 113/50; PULSE 72; RESP 18; TEMP 98.4; O2SAT 96
[2025-08-21] VITALS (7 sets, daily range): BP systolic 85–137; BP diastolic 42–78; PULSE 60–80; RESP 16–19; TEMP 97.4–98.6; O2SAT 97–100
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
[2025-08-22] VITALS (7 sets, daily range): BP systolic 101–137; BP diastolic 64–78; PULSE 63–78; RESP 17–20; TEMP 97.5–98.4; O2SAT 97–100
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
--- NOTE | 2025-08-22 16:23 | DVHINCON2 ---
Date of service: Aug 22, 2025 Family History: Diabetes mellitus G8 FATHER G8 BROTHER, Onset:Unknown G8 BROTHER, Onset:Unknown G8 SISTER G8 SISTER FH: heart attack G8 MOTHER, Onset:Unknown FH: kidney failure G8 FATHER Hypercholesterolemia G8 FATHER Hypertension G8 FATHER, Onset:Unknown G8 BROTHER, Onset:Unknown G8 BROTHER, Onset:Unknown G8 SISTER G8 SISTER Allergies: Coded Allergies: Amoxicillin (Verified Allergy, Severe, 11/26/21) Acetaminophen (Verified Allergy, Mild, EXCESSIVE SWEATING, 12/12/24) PATIENT STATES NORCO IS OK, NO REACTION Ciprofloxacin (Verified Allergy, Unknown, 07/04/23) Ibuprofen (Verified Allergy, Unknown, 07/04/23) Levofloxacin (Verified Allergy, Unknown, 11/24/24) Penicillins (Verified Adverse Reaction, Intermediate, 05/07/23) Hot Flashes/Feels Hot during administration Home Meds Active Scripts Phenazopyridine HCl (Phenazopyridine Hydrochlo) 200 Mg Tab, 200 MG PO BID PRN for 7 Days, #6 TAB Prov:MARTINEZ HARO 07/22/25 Cephalexin Monohydrate (Cephalexin) 500 Mg Cap, 1 CAP PO QID, #40 CAP Prov:MARTINEZ HARO 06/11/25 Diphenhydramine Hcl (BENADRYL CAPSULE) 25 Mg Cp, 25 MG PO DAILY PRN for 30 Days, #30 CAP 0 Refills Prov:MOIRA GRACE RESIDENT 12/01/24 Sennosides-Docusate Sodium (Senna Plus 50-8.6 mg) 1 Cap Cap, 1 CAP PO BID, #30 CAP Prov:MARTINEZ HARO 08/09/23 Enalapril Maleate (Enalapril Maleate) 20 Mg Tab, 1 TAB PO DAILY, #30 TAB 5 Refills Prov:THIEN BARKLEY MD 07/10/23 Reported Medications Enalapril Maleate (Enalapril Maleate) 2.5 Mg Tab, 20 MG PO HS for 30 Days, MG 12/11/24 Metoprolol Tartrate (Metoprolol Tartrate) 50 Mg Tab, 50 MG PO BID for 30 Days, MG 12/11/24 Atorvastatin Calcium (ATORVASTATIN CALCIUM) 40 Mg Tab, 1 TAB PO DAILY, #30 TAB 5 Refills 11/11/23 Ezetimibe (Zetia) 10 Mg Tab, 1 TAB PO DAILY, #30 TAB 5 Refills 05/05/23 Metformin Hydrochloride (Metformin Hcl) 500 Mg Tab, 1 TAB PO BID, #60 TAB 3 Refills 05/05/23 Ranolazine (Ranolazine ER) 1,000 Mg Tab, 500 MG PO TID, TAB 05/05/23 Vital Signs Vital Signs Date Time Temp Pulse Resp B/P (MAP) Pulse Ox O2 Delivery O2 Flow Rate FiO2 08/22/25 13:00 98.2 67 18 130/78 (95) 97 98.2 08/22/25 08:00 Room Air* 0 21 Labs/Diagnostic Data Labs Test 08/22/25 11:07 08/20/25 08:14 08/19/25 05:16 08/17/25 05:18 Range/Units POC Glucose 187 H 70-106 mg/dl Cortisol AM Sample 10.34 5.27-22.45 ug/dL White Blood Count 7.8 4.4-10.8 10^3/uL Red Blood Count 4.02 L 4.5-5.90 10^6/uL Hemoglobin 12.4 L 13.5-17.5 g/dL Hematocrit 36.7 L 41.0-53.0 % Mean Corpuscular Volume 91.3 80.0-100.0 fL Mean Corpuscular Hemoglobin 30.7 28.0-32.0 pg Mean Corpuscular Hemoglobin Concent 33.7 32.0-36.0 g/dL Red Cell Distribution Width 15.6 H 11.8-14.3 % Platelet Count 251 140-450 10^3/uL Mean Platelet Volume 9.6 6.9-10.8 fL Neutrophils (%) (Auto) 47.2 37.0-80.0 % Lymphocytes (%) (Auto) 34.3 10.0-50.0 % Monocytes (%) (Auto) 11.3 0.0-12.0 % Eosinophils (%) (Auto) 6.3 0.0-7.0 % Basophils (%) (Auto) 0.9 0.0-2.0 % Neutrophils # (Auto) 3.7 1.6-8.6 10 ^3/uL Lymphocytes # (Auto) 2.7 0.4-5.4 10 ^3/uL Monocytes # (Auto) 0.9 0-1.3 10 ^3/uL Eosinophils # (Auto) 0.5 0-0.8 10 ^3/uL Basophils # (Auto) 0.1 0-0.2 10 ^3/uL Nucleated Red Blood Cells 0.1 % Sodium Level 135 L 136-145 mmol/L Potassium Level 4.0 3.5-5.1 mmol/L Chloride Level 100 98-107 mmol/L Carbon Dioxide Level 25 20-31 mmol/L Anion Gap 10 5-15 Blood Urea Nitrogen 8 L 9-23 mg/dL Creatinine 0.48 L 0.700-1.30 mg/dL Glomerular Filtration Rate Calc 119 >90 mL/min BUN/Creatinine Ratio 16.7 10.0-20.0 Serum Glucose 125 H 74-106 mg/dL Calcium Level 9.0 8.7-10.4 mg/dL B-Type Natriuretic Peptide 17.90 0-100 pg/mL Hemoglobin A1c 5.7 <5.7 % A1C Total Bilirubin 0.5 0.2-1.0 mg/dL Aspartate Amino Transferase (AST) 12 L 13-40 U/L Alanine Aminotransferase (ALT) 23 7-40 U/L Alkaline Phosphatase 102 46-116 U/L Total Protein 6.5 5.7-8.2 g/dL Albumin 3.9 3.2-4.8 g/dL Test 08/16/25 10:06 Range/Units Urine Color Light-yellow Yellow Urine Clarity Cloudy H Clear Urine pH 5.5 5.0-9.0 Urine Specific [place] 1.011 1.001-1.035 Urine Protein Trace H Negative Urine Ketones Negative Negative Urine Blood 1+ H Negative /uL Urine Nitrite 1+ H Negative Urine Bilirubin Negative Negative Urine Urobilinogen Normal Negative mg/dL Urine Leukocyte Esterase 3+ Negative /uL Urine RBC 8 0 - 3 /hpf Urine Microscopic WBC 206 H 0-3 /HPF Urine Squamous Epithelial Cells Few <5 /hpf Urine Bacteria Mod H None Seen /hpf Urine Glucose Normal Normal mg/dL Microbiology Date/Time Source Procedure Growth Status 08/17/25 16:43 Voided Urine Urine Culture - Final Complete 08/17/25 15:52 Blood Blood Culture - Final NO GROWTH AFTER 5 DAYS OF INCUBATION. Complete 08/16/25 15:00 Nose MRSA Screen - Final Complete Problems(with codes): (1) Sepsis due to urinary tract infection (2) Acute UTI (urinary tract infection) (3) Urinary tract infection (4) Problem with Patel catheter (5) Chronic indwelling Patel catheter (6) Paraplegia (7) Uncontrolled diabetes mellitus Plan/Recommendation ASSESSMENT AND PLAN: ID Problem List: -Recurrent catheter-associated urinary tract infections (CAUTIs) with chronic indwelling Patel catheter -Current episode with cloudy urine; urinalysis positive for leukocyte esterase (3+) -Recent urine culture growth of Stenotrophomonas with trimethoprim- sulfamethoxazole (Bactrim) resistance -Type 2 diabetes mellitus -Hypertension -Hyperlipidemia -Coronary artery disease -Paraplegia; wheelchair-bound Assessment: This is a 60-year-old male with paraplegia and a chronic indwelling Patel cat heter, history of recurrent CAUTIs (including prior isolates: E. coli, Pseudomonas, Acinetobacter, Enterococcus, ESBL Klebsiella, Enterococcus faecalis, and Enterobacter species). He presented with 5 days of cloudy urine. He was recently discharged on Bactrim, but symptoms persisted; current organism demonstrates Bactrim resistance. He was started on IV meropenem on admission but was transitioned off antibiotics after identification of Stenotrophomonas. He is afebrile, hemodynamically stable, without leukocytosis, and blood cultures show no growth to date. Repeat urine culture on 08/17 showed mixed reva with three colony types. Given Stenotrophomonas and multiple reported antibiotic allergies (including fluoroquinolones), minocycline was selected. Patel catheter was replaced during this admission. Plan: -Antimicrobial therapy: Start minocycline 100 mg by mouth twice daily for 7 days for suspected Stenotrophomonas-associated CAUTI, given Bactrim resistance and reported fluoroquinolone allergy. -Device management: Patel catheter replaced; continue appropriate Patel care. -Monitoring: -Observe for fever, dysuria, suprapubic/flank pain, worsening mental status, or leukocytosis. -Follow up urine culture susceptibilities as available; adjust antibiotics if needed based on clinical course and tolerability. -Blood cultures: no growth to date; continue to monitor results. -Allergy considerations: Avoid fluoroquinolones and penicillins given reported allergies; reactions not specified. -Patient education: Instructed on appropriate Patel care and to seek care for recurrent cloudy urine or systemic symptoms; Patel changes as clinically indicated. -No further inpatient diagnostic workup planned given extensive prior evaluations and current stable status. -ID will continue to follow. Isolation Precautions: Standard \*Assessment and plan were discussed with the patient as written above. \*Plan is subject to change pending incorporation of new incoming information/diagnostics. Updates may be added as addendum at the bottom (or top) of this note. Electronically signed by: Shannon Zavala MD, 08/22/2025 HISTORY: The patient's chart and available data were reviewed. The patient was seen and examined. History obtained from: patient HPI: -60-year-old male with paraplegia (wheelchair-bound), chronic indwelling Patel catheter (~1.5 years), CAD, type 2 diabetes mellitus, hypertension, hyperlipidemia. -Presents with cloudy urine for 5 days. Recently admitted and discharged on Bactrim; symptoms persisted. -Reports frequent UTIs. Followed by urology at [facility]. Patel reportedly changed less than a month ago. -Current hospitalization: admitted for suspected UTI; initial therapy with IV meropenem and IV hydration. Subsequently, urine culture noted Stenotrophomonas with Bactrim resistance; transitioned off antibiotics and plan made for minocycline. -Afebrile this admission. Vital signs stable. Prior culture history (per record): -May: gram-negative rods, three different colony types; E. coli (05/16). -November: Pseudomonas, Acinetobacter, Enterococcus; ESBL Klebsiella; Enterococcus faecalis; Enterobacter species. REVIEW OF SYSTEMS: -Constitutional: Not discussed in transcript. -HEENT: Not discussed in transcript. -Respiratory: Not discussed in transcript. -Cardiovascular: Not discussed in transcript. -Gastrointestinal: Not discussed in transcript. -Genitourinary: Cloudy urine. -Musculoskeletal: Not discussed in transcript. -Skin: Not discussed in transcript. -Neurological: Paraplegia. -Psychiatric: Not discussed in transcript. PAST MEDICAL HISTORY: -Paraplegia -Coronary artery disease -Type 2 diabetes mellitus -Hypertension -Hyperlipidemia -Recurrent UTIs with chronic indwelling Patel catheter PAST SURGICAL HISTORY: -Not provided in transcript. HOME MEDICATIONS: -Not provided in transcript. ALLERGIES: -Ciprofloxacin -Levofloxacin -Ibuprofen -Amoxicillin -Acetaminophen -Penicillins -Reaction details: Unknown FAMILY HISTORY: -Not provided in transcript. SOCIAL HISTORY: -Wheelchair-bound due to paraplegia. -Other details: Not provided in transcript. OBJECTIVE: Vital Signs on Arrival: -Not provided in transcript. Most Recent Vital Signs: -Temp: 98.4 F -Pulse: 78 -Resp: 20 -BP: 101/64 -SpO2: 100% on room air Admission Weight: -Not provided in transcript. PHYSICAL EXAM: General: NAD Neck: Supple. No masses. HEENT: PERRL. Normal lids and conjunctiva. Moist mucous membranes. Oropharynx without lesions, exudates or excessive erythema. Normal appearance of the external aspects of the nose and ears. Heart: Regular rhythm, normal rate. No murmur. No lower extremity edema. Lungs: Normal respiratory effort. Clear to auscultation bilaterally. No wheezes. No crackles. Abdomen: Soft. Non-tender. Non-distended. No masses or abdominal hernia. Msk: No digital cyanosis. Paraplegia. Skin: Warm and dry, no rashes. Neuro: Alert. No facial droop or slurred speech. Extra-ocular movements intact. Paraplegia noted. Psych: Appropriate mood. Full affect. Oriented to person, place, time, and situation. : Indwelling Patel catheter in place; urine in collection bag appears cloudy. LINES: Active Lines/Devices: -Right upper extremity peripherally inserted central catheter (PICC) -Indwelling Patel catheter (replaced during this hospitalization) DIAGNOSTIC STUDIES: -Laboratory: -Initial: WBC 10.3 x10^3/L; Hgb 13.2 g/dL; Platelets 286 x10^3/L -Most recent: WBC 7.8 x10^3/L; Hgb 12.4 g/dL; Platelets 251 x10^3/L -Basic labs: Sodium 135 mmol/L; BUN 8 mg/dL; Creatinine 9.48 mg/dL (as documented) -Urinalysis: Cloudy appearance; leukocyte esterase 3+; few squamous epithelial cells -Microbiology: -Blood cultures: No growth to date -Urine culture (current/this admission): Stenotrophomonas; resistant to Bactrim (trimethoprim-sulfamethoxazole) -Urine culture (08/17): Mixed reva with three colony types -Prior isolates (historical): E. coli; Pseudomonas; Acinetobacter; Enterococcus; ESBL Klebsiella; Enterococcus faecalis; Enterobacter species -Imaging: -Chest X-ray: Right PICC terminates appropriately; no acute cardiopulmonary disease -CT abdomen/pelvis (October 2024): No acute intra-abdominal abnormality; bladder with compressed Patel; stable 2.9 cm right-sided cystic lesion (organ not specified in transcript) -Renal ultrasound (May): Findings suggest possible Patel catheter balloon versus bladder diverticulum; distended bladder -No other recent imaging during this hospitalization reported PERTINENT IMAGING: -As above under Diagnostic Studies. Plan discussed with: Patient SHANNON ZAVALA MD Aug 22, 2025 16:23
[2025-08-22] MEDS: MINOCYCLINE HCL 100 MG CAP PO SCH (22:00)
[2025-08-23] VITALS (7 sets, daily range): BP systolic 108–135; BP diastolic 54–64; PULSE 65–77; RESP 17–20; TEMP 98–98.7; O2SAT 94–98
[2025-08-23 06:29] LABS: Hematocrit 35.7 % (41.0-53.0); Hemoglobin 11.9 g/dL (13.5-17.5); Mean Corpuscular Hemoglobin 30.4 pg (28.0-32.0); Mean Corpuscular Volume 91.1 fL (80.0-100.0); Nucleated Red Blood Cells % 0.1 %
[2025-08-23 06:35] LABS: Alanine Aminotransferase 28 U/L (7-40); Albumin 3.9 g/dL (3.2-4.8); Anion Gap 1 (5-15); BUN/Creatinine Ratio 22.0 (10.0-20.0); Bilirubin, Total 0.4 mg/dL (0.2-1.0); Blood Urea Nitrogen 11 mg/dL (9-23); Calcium 8.9 mg/dL (8.7-10.4); Carbon Dioxide 25 mmol/L (20-31); Magnesium 2.0 mg/dL (1.6-2.6); Potassium 4.0 mmol/L (3.5-5.1); Total Protein 6.6 g/dL (5.7-8.2)
[2025-08-23 07:01] LABS: Alkaline Phosphatase 140 U/L (46-116); Glucose 133 mg/dL (74-106); Sodium 136 mmol/L (136-145)
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
--- NOTE | 2025-08-23 20:43 | DVHPN2 ---
Consult Progress Note Date Seen: Aug 23, 2025 Objective vital signs Vital Sign Date Time Temp Pulse Resp B/P (MAP) Pulse Ox O2 Delivery O2 Flow Rate FiO2 08/23/25 17:00 98.2 70 20 135/54 (81) 97 98.2 08/23/25 08:00 Room Air* 0 21 Total Intake and Output 08/22/25 08/22/25 08/23/25 15:00 23:00 07:00 Intake Total 400 ml 3000 ml Output Total 1900 ml 500 ml 1200 ml Balance -1900 ml -100 ml 1800 ml medications Current Medications Medications Dose Ordered Sig/[place] Route Start Time Stop Time Status Last Admin Dose Admin Enoxaparin Sodium 40 mg DAILY SC 08/17/25 10:00 08/23/25 10:34 40 MG Diphenhydramine HCl 25 mg DAILY PRN PO 08/16/25 18:30 Enalapril Maleate 20 mg HS PO 08/16/25 22:00 08/22/25 22:31 20 MG EZETIMIBE 10 mg DAILY PO 08/17/25 10:00 08/23/25 10:34 10 MG Metoprolol Tartrate 50 mg BID PO 08/16/25 22:00 08/23/25 10:34 50 MG Atorvastatin Calcium 40 mg HS PO 08/16/25 22:00 08/22/25 22:32 40 MG Patient Own Medication 1 tab DAILY PO 08/17/25 10:00 UNV Ranolazine 500 mg TID PO 08/16/25 22:00 08/23/25 14:54 500 MG Patient Own Medication 1 cap BID PO 08/17/25 10:00 Diagnostic Test (Pha) 1 strip ACHS 08/17/25 17:00 08/23/25 17:12 1 STRIP Insulin Human Regular ACHS SC 08/17/25 17:00 08/23/25 17:18 2 UNITS Dextrose 50 ml UD PRN IV 08/17/25 12:45 Pantoprazole Sodium 40 mg DAILY@0600 PO 08/18/25 06:00 08/23/25 06:35 40 MG Minocycline HCl 100 mg Q12HR PO 08/22/25 22:00 08/23/25 10:34 100 MG laboratory and microbiology Laboratory Tests 08/23/25 05:40 Test 08/23/25 05:40 Range/Units Serum Glucose 133 H 74-106 mg/dL Problem List/Assessment/Plan Problem List/Assessment/Plan patient seen at bedside full note to follow, Achromobacter growth on original urine culture not present on new urine culture resistant to most antibiotics, carbapenem and tetracycline not shown Plan: without expanding sensitivities, unclear if any antibiotic will cover organisms seen on urine culture in any case, repeat urine culture after myers change is suggestive that organisms are mostly likely colonization would continue treatment with minocycline 100mg po bid x 7 days (has potential to cover both stentrophomonas and achromobacter) Plan discussed with: Patient Dietary Evaluation Review Comments: Nutrition Recommendation: 1) Consider CCHO 60gm + cardiac diet 2) Refer Veterinary Surgery Technologist for diabetes education 3) Monitor PO intake, lab values, weight trend, and I/O Expected Outcomes/Goals: Intake to meet >75% estimated needs Lab values to improve FU 3-5 days SHANNON TORRES MD Aug 23, 2025 20:43
[2025-08-24] VITALS (8 sets, daily range): BP systolic 107–134; BP diastolic 53–84; PULSE 60–87; RESP 16–20; TEMP 97.7–98.4; O2SAT 92–99
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
[2025-08-24 07:01] LABS: Hematocrit 36.8 % (41.0-53.0); Hemoglobin 12.3 g/dL (13.5-17.5); Mean Corpuscular Hemoglobin 30.5 pg (28.0-32.0); Mean Corpuscular Volume 90.8 fL (80.0-100.0); Nucleated Red Blood Cells % 0.1 %
--- NOTE | 2025-08-24 10:59 | DVHSR ---
APPROVED REPORT EXAM: Two-dimensional and M-mode echocardiogram with Doppler and color Doppler. Blood Pressure: 153/69 mmHg INDICATION R/O heart failure RISK FACTORS Height: 62, Weight: 197 DIMENSIONS LVDd 4.3 (3.8-5.7cm) LA (2D) 3.5 (1.9-4.0cm) Aortic Root 3.3 (2.0-3.7cm) LVDs 3.0 (2.5-4.0cm) LA (MM) (1.9-4.0cm) Aortic Cusp Exc 1.9 (1.5-2.0cm) EF (%) 60.0 (55-70%) Rt. Atrium 3.5 (1.9-4.0cm) Asc. Aorta cm Mitral Valve Mitral Mitral Stenosis E wave 0.93m/s MV Mean GR. mmHg A wave 1.01m/s MV Peak GR. mmHg E/A ratio 0.9 2D MVA cm2 DECEL Time 249ms PRESS 1/2 Time 85ms IVRT ms Dop MVA 2.59cm2 Aortic Valve Aortic Valve Aortic Stenosis V1 1.26m/s AO Mean GR. 5mmHg V2 1.49m/s AO Peak GR. 9mmHg LVOT Diameter 2.3 (1.8-2.4cm) Doppler BRETT 3.51cm2 Pulmonic Valve V2 1.23m/s Other Information Technically limited study due to patient position and body habitus. Conclusion lvef 55% normal rv function no severe valve abnormalities noted normal pericardium
[2025-08-24] MEDS ORDERED: [UNRECOGNIZED DRUG - CODE] PO (13:04)
[2025-08-25 01:00] VITALS: BP 138/57; PULSE 85; RESP 17; TEMP 97.4; O2SAT 100
[2025-08-25 05:00] VITALS: BP 126/66; PULSE 93; RESP 18; TEMP 98; O2SAT 99
[2025-08-25 08:00] VITALS: PULSE 78; RESP 18; O2SAT 97
[2025-08-25 09:00] VITALS: BP 161/89; PULSE 78; RESP 20; TEMP 97.6; O2SAT 97
[2025-08-25 10:55] VITALS: BP 161/89; PULSE 78; TEMP 36.4
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
[2025-08-25 12:51] VITALS: BP 148/81; PULSE 84; RESP 18; TEMP 98.4; O2SAT 98
== END 2025-08-25 13:00 | disposition home or self-care (01) | DRG 466 ==
LOC: ER 09:42 → OVERFLOW 13:44 → CENTRAL 14:40
PROVIDERS: ADMIT Internal Medicine; ATTEND Internal Medicine
DX: T83.511A Infection and inflammatory reaction due to indwelling urethral catheter, initial encounter (principal); E87.1 Hypo-osmolality and hyponatremia; G82.20 Paraplegia, unspecified; B96.89 Other specified bacterial agents as the cause of diseases classified elsewhere; E11.9 Type 2 diabetes mellitus without complications; N39.0 Urinary tract infection, site not specified; I10 Essential (primary) hypertension; E78.2 Mixed hyperlipidemia; I25.10 Atherosclerotic heart disease of native coronary artery without angina pectoris; K21.9 Gastro-esophageal reflux disease without esophagitis; Y84.6 Urinary catheterization as the cause of abnormal reaction of the patient, or of later complication, without mention of misadventure at the time of the procedure; Z95.1 Presence of aortocoronary bypass graft; Z99.3 Dependence on wheelchair; I25.2 Old myocardial infarction; Z88.0 Allergy status to penicillin; Z88.1 Allergy status to other antibiotic agents; Z88.6 Allergy status to analgesic agent; Z98.61 Coronary angioplasty status; Z82.49 Family history of ischemic heart disease and other diseases of the circulatory system; Z83.3 Family history of diabetes mellitus; Y92.89 Other specified places as the place of occurrence of the external cause; Z90.81 Acquired absence of spleen
CPT/HCPCS: 36415; 80048; 80053; 81001; 82533; 82962; 83036; 83735; 83880; 85025; 87040; 87081; 87086; 87088; 87186; 93306; 97110; 97163; 97530; G0378; J1815; J2185